=== PATIENT | male | born 1960 | race African-American/Black ===

== ENCOUNTER 2016-10-16 12:58 | Inpatient (IN) | payer OTHER ==
[~2016-10-16] VITALS: Ht 170.2 cm; Wt 81.0 kg
[~2016-10-16 12:58] MED LIST: ACET325S8 PO
[2016-10-16 13:02] VITALS: BP 173/80; PULSE 80; RESP 28; O2SAT 100
[2016-10-16 13:50] LABS: AUTOMATED NEUTROPHIL # 7.8 TH/MM3 (1.8-7.7); BASOPHIL # 0.2 TH/MM3 (0-0.2); BASOPHIL % 1.4 % (0.0-2.0); EOSINOPHIL # 0.1 TH/MM3 (0-0.4); EOSINOPHIL % 0.4 % (0.0-4.0); HEMATOCRIT 32.5 % (39.0-51.0); HEMO FLAGS DIFF FINAL; LYMPH % 26.9 % (9.0-44.0); LYMPHOCYTE # 3.3 TH/MM3 (1.0-4.8); MEAN CELL VOLUME 85.7 FL (80.0-100.0); MEAN CORPUSCULAR HEMOGLOBIN 28.8 PG (27.0-34.0); MEAN CORPUSCULAR HGB CONC 33.6 % (32.0-36.0); MONO % 8.3 % (0.0-8.0); PLATELET COUNT 553 TH/MM3 (150-450); RED CELL DISTRIBUTION WIDTH 17.4 % (11.6-17.2); WHITE BLOOD COUNT 12.4 TH/MM3 (4.0-11.0)
[2016-10-16 14:02] LABS: PROTHROMBIN TIME - PATIENT 11.3 SEC (9.8-11.6)
[2016-10-16 14:06] LABS: ANION GAP 9 MEQ/L (5-15); BICARBONATE 23.8 MEQ/L (21.0-32.0); BLOOD UREA NITROGEN 11 MG/DL (7-18); CHLORIDE 99 MEQ/L (98-107); GLOMERULAR FILTRATION RATE 153 ML/MIN (>89); POTASSIUM 4.2 MEQ/L (3.5-5.1); SODIUM (NA) 132 MEQ/L (136-145)
[2016-10-16 14:14] LABS: CREATINE KINASE 76 U/L (39-308)
--- NOTE | 2016-10-16 14:23 | RADRPT ---
EXAM DATE/TIME: 10/16/2016 13:57 [facility] COMPARISON: CT THORAX W/O CONTRAST, September 29, 2014, 16:36. CHEST SINGLE AP, January 03, 2016, 20:18. INDICATIONS : Chest pain. MEDICAL HISTORY : None. SURGICAL HISTORY : None. ENCOUNTER: Initial ACUITY: 2 days PAIN SCORE: 10/10 LOCATION: Left chest FINDINGS: The left lung base has become completely opacified. Blunting of the costophrenic angle is indicative of a pleural effusion. The right lung is clear. Heart is obscured by the left basilar density. CONCLUSION: Left basilar opacification characteristic of pleural fluid accumulation and underlying lung consolida tion or mass. Jude Lomeli MD on October 16, 2016 at 14:17 Board Certified Radiologist. This report was verified electronically.
[2016-10-16 16:20] VITALS: O2SAT 94
[2016-10-16] MEDS ORDERED: IOHEXOL 350 MG/ML 10 ML VIAL (for RAD DIAG) IV ONE (17:04)
--- NOTE | 2016-10-16 17:11 | PD ---
HPI Chief Complaint: Cardiac Complaint Time Seen by Provider: 15:36 Travel History International Travel<30 days: No Contact w/Intl Traveler<30days: No Traveled to known affect area: No History of Present Illness HPI Patient is a 56-year-old male presents emergency Department with chest and abdomen pain. Patient states his pain is Fairly severe recently. States is also been having some nausea without vomiting. Denies any weight loss. Does endorse smoking as well as drinking on a regular basis. Patient did adamantly denies any trauma to the left side of his abdomen being any car crashes recently or chills. Patient does endorse some fevers. States the pain is fairly generalized nonradiating, does endorse some mild shortness of breath. PFSH Past Medical History Asthma: Yes Blood Disorders: No Heart Rhythm Problems: No Cancer: No Cardiovascular Problems: Yes High Cholesterol: No Chest Pain: Yes Congestive Heart Failure: No COPD: No Diminished Hearing: No Endocrine: No Genitourinary: No Immune Disorder: No Musculoskeletal: No Neurologic: No Psychiatric: No Reproductive: No Respiratory: Yes Pancreatitis: Yes Sleep Apnea: No Tetanus Vaccination: > 5 Years Influenza Vaccination: No Past Surgical History Surgical History: No Previous Surgery Social History Alcohol Use: Yes (OCCASIONALLY) Tobacco Use: Yes (< 1/2 PPD) Substance Use: No Allergies-Medications (Allergen,Severity, Reaction): Coded Allergies: No Known Allergies (Verified , 10/16/16) Reported Meds & Prescriptions Reported Meds & Active Scripts Active No Active Prescriptions or Reported Medications Review of Systems Except as stated in HPI: all other systems reviewed are Neg Physical Exam Narrative GENERAL: Well-developed, well-nourished, slight pallor and appears in moderate discomfort. SKIN: Slight pallor with any wound rash or jaundice.. HEAD: Atraumatic. Normocephalic. EYES: Pupils equal and round. No scleral icterus. No injection or drainage. ENT: No nasal bleeding or discharge. Mucous membranes pink and moist. NECK: Trachea midline. No JVD. CARDIOVASCULAR: Regular rate and rhythm. No murmur appreciated. RESPIRATORY: No accessory muscle use. Clear to auscultation. Breath sounds equal bilaterally. GASTROINTESTINAL: Abdomen soft, fairly tender, firm, but not rigid., Moderate distention. Hepatic and splenic margins not palpable. No CVA tenderness no rebound or percussive tenderness. MUSCULOSKELETAL: No obvious deformities. No clubbing. No cyanosis. No edema. NEUROLOGICAL: Awake and alert. No obvious cranial nerve deficits. Motor grossly within normal limits. Normal speech. PSYCHIATRIC: Appropriate mood and affect; insight and judgment normal. Data Data Last Documented VS Vital Signs Date Time Temp Pulse Resp B/P Pulse Ox O2 Delivery O2 Flow Rate FiO2 10/16/16 17:45 88 34 119/64 96 Room Air Orders Electrocardiogram (10/16/16 ) Complete Blood Count With Diff (10/16/16 13:29) Basic Metabolic Panel (Bmp) (10/16/16 13:29) Ckmb (Isoenzyme) Profile (10/16/16 13:29) Troponin I (10/16/16 13:29) Chest, Single Ap (10/16/16 13:29) Iv Access Insert/Monitor (10/16/16 13:29) Ecg Monitoring (10/16/16 13:29) Oxygen Administration (10/16/16 13:29) Oximetry (10/16/16 13:29) Prothrombin Time / Inr (Pt) (10/16/16 13:29) Urinalysis - C+S If Indicated (10/16/16 13:40) Ct Thorax/ Chest W Iv Contrast (10/16/16 ) Iohexol 350 Inj (Omnipaque 350 Inj) (10/16/16 17:04) Morphine Inj (Morphine Inj) (10/16/16 17:15) Ondansetron Inj (Zofran Inj) (10/16/16 17:15) Ct Abd/Pel W Iv Contrast(Rout) (10/16/16 ) Hepatic Functional Panel (10/16/16 17:51) Lipase (10/16/16 17:51) Blood Culture (10/16/16 17:54) Ceftriaxone Inj (Rocephin Inj) (10/16/16 18:00) Azithromycin Inj (Zithromax Inj) (10/16/16 18:00) Admit Order (Ed Use Only) (10/16/16 ) Labs Laboratory Tests Test 10/16/16 13:40 White Blood Count 12.4 TH/MM3 Red Blood Count 3.80 MIL/MM3 Hemoglobin 10.9 GM/DL Hematocrit 32.5 % Mean Corpuscular Volume 85.7 FL Mean Corpuscular Hemoglobin 28.8 PG Mean Corpuscular Hemoglobin 33.6 % Concent Red Cell Distribution Width 17.4 % Platelet Count 553 TH/MM3 Mean Platelet Volume 7.3 FL Neutrophils (%) (Auto) 63.0 % Lymphocytes (%) (Auto) 26.9 % Monocytes (%) (Auto) 8.3 % Eosinophils (%) (Auto) 0.4 % Basophils (%) (Auto) 1.4 % Neutrophils # (Auto) 7.8 TH/MM3 Lymphocytes # (Auto) 3.3 TH/MM3 Monocytes # (Auto) 1.0 TH/MM3 Eosinophils # (Auto) 0.1 TH/MM3 Basophils # (Auto) 0.2 TH/MM3 CBC Comment DIFF FINAL Differential Comment Prothrombin Time 11.3 SEC Prothromb Time International 1.0 RATIO Ratio Sodium Level 132 MEQ/L Potassium Level 4.2 MEQ/L Chloride Level 99 MEQ/L Carbon Dioxide Level 23.8 MEQ/L Anion Gap 9 MEQ/L Blood Urea Nitrogen 11 MG/DL Creatinine 0.65 MG/DL Estimat Glomerular Filtration 153 ML/MIN Rate Random Glucose 140 MG/DL Calcium Level 9.7 MG/DL Total Bilirubin 0.4 MG/DL Direct Bilirubin 0.1 MG/DL Indirect Bilirubin 0.3 MG/DL Aspartate Amino Transf 16 U/L (AST/SGOT) Alanine Aminotransferase 16 U/L (ALT/SGPT) Alkaline Phosphatase 144 U/L Total Creatine Kinase 76 U/L Troponin I LESS THAN 0.02 NG/ML Total Protein 8.2 GM/DL Albumin 2.8 GM/DL Lipase 319 U/L MDM Medical Decision Making Medical Screen Exam Complete: Yes Emergency Medical Condition: Yes Interpretation(s) EKG shows normal sinus rhythm normal axis normal R-wave progression. Probable left atrial enlargement, no concerning ST segment changes and intervals within normal limits. This is a borderline EKG. Differential Diagnosis ACS, AMI, pneumonia, pleural effusion, metastatic disease, abdominal mass. Narrative Course Last 24 hours Impressions Chest X-Ray 10/16/16 1329 Signed Impressions: Service Date/Time: October 13:57 - CONCLUSION: Left basilar opacification characteristic of pleural fluid accumulation and underlying lung consolidation or mass. Jude Lomeli MD Chest CT 10/16/16 0000 Signed Impressions: Service Date/Time: October 16:59 - CONCLUSION: 1. Huge complex cystic mass/collection within the left upper quadrant which occupies the expected region of the spleen and is incompletely evaluated on this examination. CT of the abdomen will be performed this same day and will allow complete evaluation of this lesion. 2. Bilbasilar patchiness (left worse than right) consistent with atelectasis and/or pneumonia. Clinical correlation is recommended. 3. Small left pleural effusion. 4. Ascites within the upper abdomen. 5. Degenerative changes throughout the thoracic spine. 6. Coronary artery calcifications. Mahin Malin MD Abdomen/Pelvis CT 10/16/16 0000 Signed Impressions: Service Date/Time: October 16:59 - CONCLUSION: 1. Large complex mass/collection within the left upper quadrant measuring 18.7 x 14.9 cm. Differential includes walled-off ruptured spleen with large hematoma, complex pseudocyst from the tail of the pancreas or possible cystic neoplasm. 2. Moderate amount of ascites within the abdomen and pelvis. 3. Calcifications within the head of the pancreas suggestive of chronic calcific pancreatitis. 4. Diffuse thickening of multiple loops of jejunum suggesting jejunitis. 5. Uncomplicated colonic diverticulosis. 6. There is mild ectasia of the infrarenal abdominal aorta. Mahin Malin MD Patient roomed in the emergency department given pain, patient was inquired several times as to any traumatic event to his abdomen or chest and adamantly declines. He is adamantly denying any cocaine use. Patient was discussed with Dr. Wiggins for admission who inquires about surgical consultation and I think this is a reasonable thing to do. The patient was discussed with Dr. Farmer who will see the patient, he will make recommendations in the future regarding biopsy and recommends any biopsy be held for now. Differential diagnosis this mass is still fairly wide, pancreatic pseudocyst, pancreatic cancer, splenic hematoma is a possibility. Curious is that there are no other metastatic lesions seen that I can tell. The results were discussed with the patient and he was recommended for admission and he is agreeable. Will be placed on antibiotics secondary to atelectatic left lower lobe versus pneumonia. He has been stable in the emergency department. Diagnosis Primary Impression: Pleural effusion Additional Impressions: Abdominal mass Chest pain Admitting Information Admitting Physician Requests: Admit Scripts No Active Prescriptions or Reported Meds Condition: Stable Mahin Knight MD Oct 16, 2016 17:11
[2016-10-16] MEDS ORDERED: MORPHINE SULFATE 8 MG/ML INJ IV PUSH ONE (17:15)
[2016-10-16] MEDS ORDERED: ONDANSETRON HCL 4 MG/2 ML VIAL IV PUSH ONE (17:15)
--- NOTE | 2016-10-16 17:39 | RADRPT ---
EXAM DATE/TIME: 10/16/2016 16:59 [facility] COMPARISON: CT THORAX W/O CONTRAST, September 29, 2014, 16:36. INDICATIONS : Chest pain with SOB. IV CONTRAST: 96 cc Omnipaque 350 (iohexol) IV ; Cumulative dose for multiple exams. RADIATION DOSE: 18.01 CTDIvol (mGy) MEDICAL HISTORY : Cardiovascular disease. Pancreatitis. SURGICAL HISTORY : None. ENCOUNTER: Initial ACUITY: 1 day PAIN SCALE: 8/10 LOCATION: Chest TECHNIQUE: Volumetric scanning of the chest was performed. Using automated exposure control and adjustment of t he mA and/or kV according to patient size, radiation dose was kept as low as reasonably achievable to obtain optimal diagnostic quality images. FINDINGS: There is a huge complex cystic mass/collection within the left upper quadrant which is incompletely e valuated on this examination. This occupies the expected region of the splenic fossa and may arise f rom the spleen. This will be described in detail in the CT of the abdomen report. There is a small left pleural effusion. Bibasilar patchiness is noted (left worse than right) consistent with atelect asis and/or pneumonia. Clinical correlation is recommended. Coronary artery calcifications are noted. There is no mediastinal, hilar, or axillary lymphadenopathy. No pulmonary nodule or mass is noted. No pulmonary edema is noted. There is ascites within the upper abdomen. The bony structures are st able. Degenerative changes are noted throughout the thoracic spine. CONCLUSION: 1. Huge complex cystic mass/collection within the left upper quadrant which occupies the expected reg ion of the spleen and is incompletely evaluated on this examination. CT of the abdomen will be perfo rmed this same day and will allow complete evaluation of this lesion. 2. Bilbasilar patchiness (left worse than right) consistent with atelectasis and/or pneumonia. Clinic al correlation is recommended. 3. Small left pleural effusion. 4. Ascites within the upper abdomen. 5. Degenerative changes throughout the thoracic spine. 6. Coronary artery calcifications. Mahin Malin MD on October 16, 2016 at 17:20 Board Certified Radiologist. This report was verified electronically.
[2016-10-16 17:45] VITALS: BP 119/64; PULSE 88; RESP 34; O2SAT 96
--- NOTE | 2016-10-16 17:47 | RADRPT ---
EXAM DATE/TIME: 10/16/2016 16:59 [facility] COMPARISON: CT ABDOMEN & PELVIS W CONTRAST, October 22, 2013, 22:05. INDICATIONS : Patient complains of abdominal pain. IV CONTRAST: 96 cc Omnipaque 350 (iohexol) IV ; Cumulative dose for multiple exams. ORAL CONTRAST: No oral contrast ingested. RADIATION DOSE: 18.01 CTDIvol (mGy) ; Combined studies - Thorax/Abdomen/Pelvis MEDICAL HISTORY : Cardiovascular disease. Pancreatitis. SURGICAL HISTORY : None. ENCOUNTER: Initial ACUITY: 1 day PAIN SCALE: 8/10 LOCATION: Upper quadrant TECHNIQUE: Volumetric scanning of the abdomen and pelvis was performed. Using automated exposure control and ad justment of the mA and/or kV according to patient size, radiation dose was kept as low as reasonably achievable to obtain optimal diagnostic quality images. FINDINGS: There is evidence of a huge complex cystic mass/collection within the left upper quadrant which measu res 18.7 x 14.9 cm. This is located within the splenic fossa. No normal spleen is identified. Diff erential diagnosis includes walled-off rupture of the spleen with large hematoma or possible pseudocy st formation from the tail of the pancreas. Cystic neoplasm also remains in the differential. There is medial displacement of the stomach and inferior displacement of the left kidney related to this l arge complex lesion. Moderate amount of ascites is noted within the abdomen and pelvis. Calcificati ons are noted within the head of the pancreas consistent with chronic calcific pancreatitis. The regino er is unremarkable. The gallbladder is also unremarkable. The adrenal glands are normal bilaterally . The kidneys enhance briskly and demonstrate no evidence of focal mass or hydronephrosis. Scattere d uncomplicated colonic diverticula are noted. There is no acute diverticulitis. Degenerative change s are noted throughout the lumbar and lower thoracic spine. There is mild wall thickening involving several loops of jejunum suggesting jejunitis. Clinical correlation is recommended. CONCLUSION: 1. Large complex mass/collection within the left upper quadrant measuring 18.7 x 14.9 cm. Differentia l includes walled-off ruptured spleen with large hematoma, complex pseudocyst from the tail of the pa ncreas or possible cystic neoplasm. 2. Moderate amount of ascites within the abdomen and pelvis. 3. Calcifications within the head of the pancreas suggestive of chronic calcific pancreatitis. 4. Diffuse thickening of multiple loops of jejunum suggesting jejunitis. 5. Uncomplicated colonic diverticulosis. 6. There is mild ectasia of the infrarenal abdominal aorta. Mahin Malin MD on October 16, 2016 at 17:27 Board Certified Radiologist. This report was verified electronically.
[2016-10-16] MEDS ORDERED: cefTRIAXone INJ 1,000 MG in SODIUM CHLORIDE 0.9% INJ 100 ML IV ONE (18:00)
[2016-10-16] MEDS ORDERED: AZITHROMYCIN INJ 500 MG in SODIUM CHLOR 0.9% 250 ML INJ 250 ML IV ONE (18:00)
[2016-10-16 19:07] LABS: INDIRECT BILIRUBIN 0.3 MG/DL (0.0-0.8); TOTAL BILIRUBIN ADULT 0.4 MG/DL (0.2-1.0)
[2016-10-16 19:53] VITALS: BP 103/61; PULSE 91; RESP 18; O2SAT 96
--- NOTE | 2016-10-16 20:19 | HHI.HP ---
HPI Service [facility] Hospitalists Primary Care Physician No Primary Care Physician Admission Diagnosis Abdominal mass, PNA. Chief Complaint: Sharp chest pain, abd pain, cough Travel History International Travel<30 Days: No Contact w/Intl Traveler <30 Da: No Traveled to Known Affected Are: No History of Present Illness Patient is a 56-year-old relatively healthy male presents emergency Department with chest and abdomen pain. Patient states his pain is Fairly severe recently , but has been ongoing for 1 week. States is also been having some nausea without vomiting. Denies any weight loss. Does endorse smoking on a regular basis. He previously drank Etoh heavily, but very little in last 6 mos. Patient did adamantly denies any trauma to the left side of his abdomen, being in MVA or MCA recently. Patient does endorse some fevers over last week. States the pain is fairly generalized nonradiating, does endorse some mild shortness of breath. No hemoptysis. No melena or hematochezia. No urinary symptoms. has been eating his normal diet. No foreign travel. Review of Systems Constitutional: COMPLAINS OF: Diaphoretic episodes, Fatigue, Fever, DENIES: Weight gain, Weight loss, Chills, Dizziness, Change in appetite, Night Sweats Endocrine: DENIES: Heat/cold intolerance, Polydipsia, Polyuria, Polyphagia Eyes: DENIES: Blurred vision, Diplopia, Eye inflammation, Eye pain, Vision loss , Photosensitivity, Double Vision Ears, nose, mouth, throat: DENIES: Tinnitus, Hearing loss, Vertigo, Nasal discharge, Oral lesions, Throat pain, Hoarseness, Ear Pain, Running Nose, Epistaxis, Sinus Pain, Toothache, Odynophagia Respiratory: COMPLAINS OF: Cough, Shortness of breath, DENIES: Apneas, Snoring , Wheezing, Hemoptysis, Sputum production Cardiovascular: COMPLAINS OF: Chest pain, DENIES: Palpitations, Syncope, Dyspnea on Exertion, PND, Lower Extremity Edema, Orthopnea, Claudication Gastrointestinal: COMPLAINS OF: Abdominal pain, Nausea Musculoskeletal: COMPLAINS OF: Joint pain Hematologic/lymphatic: DENIES: Bruising, Lymphadenopathy Immunologic/allergic: DENIES: Eczema, Urticaria Neurologic: DENIES: Abnormal gait, Headache, Localized weakness, Paresthesias, Seizures, Speech Problems, Tremor, Poor Balance Psychiatric: DENIES: Anxiety, Confusion, Mood changes, Depression, Hallucinations, Agitation, Suicidal Ideation, Homicidal Ideation, Delusions, History of Bipolar, History of Schizophrenia Past Family Social History Past Medical History Previous heavy EtOH use Pancreatitis Denies HTN, hyperlipidemia, DM or other medical issues Past Surgical History None Reported Medications None regularly; occasional ASA Allergies: Coded Allergies: No Known Allergies (Verified , 10/16/16) Family History Father from DM complications Mother at 88 y.o. of "old age" 1 sister of some form of cancer in her 40s No other CA per his report Social History smokes 1/2 ppd for 38 yrs Occasional Etoh now (few drinks on w/e), but previously heavy EtoH daily Previously smoked pot and used some cocaine in his 20/30s; never used IVD [employer] with [employer] grew up locally Single, but has GF No kids Physical Exam Vital Signs Vital Signs Date Time Temp Pulse Resp B/P Pulse Ox O2 Delivery O2 Flow Rate FiO2 10/16/16 19:53 91 18 103/61 96 Room Air 10/16/16 17:45 88 34 119/64 96 Room Air 10/16/16 16:20 94 Room Air 10/16/16 16:19 Room Air 10/16/16 13:02 80 28 173/80 100 Room Air Physical Exam GENERAL: This is a well-nourished, well-developed patient, in no apparent distress. a/o. SKIN: No rashes, ecchymoses or lesions. Cool and dry. HEAD: Atraumatic. Normocephalic. No temporal or scalp tenderness. EYES: Pupils equal round and reactive. Extraocular motions intact. No scleral icterus. No injection or drainage. ENT: Nose without bleeding, purulent drainage or septal hematoma. Airway patent. NECK: Trachea midline. No JVD or lymphadenopathy. Supple, nontender, no meningeal signs. CARDIOVASCULAR: Regular rate and rhythm without murmurs, gallops, or rubs. RESPIRATORY: Clear to auscultation. breath sounds diminished at bases. No wheezes, rales, or rhonchi. GASTROINTESTINAL: Abdomen soft, moderately distended with global ttp, no rebound , +voluntary guarding. MUSCULOSKELETAL: Extremities without clubbing, cyanosis, or edema. No joint tenderness, effusion, or edema noted. No calf tenderness. NEUROLOGICAL: Awake and alert. Cranial nerves II through XII intact. Motor and sensory grossly within normal limits. Five out of 5 muscle strength in all muscle groups. Normal speech. Laboratory Laboratory Tests Test 10/16/16 13:40 White Blood Count 12.4 Red Blood Count 3.80 Hemoglobin 10.9 Hematocrit 32.5 Mean Corpuscular Volume 85.7 Mean Corpuscular Hemoglobin 28.8 Mean Corpuscular Hemoglobin 33.6 Concent Red Cell Distribution Width 17.4 Platelet Count 553 Mean Platelet Volume 7.3 Neutrophils (%) (Auto) 63.0 Lymphocytes (%) (Auto) 26.9 Monocytes (%) (Auto) 8.3 Eosinophils (%) (Auto) 0.4 Basophils (%) (Auto) 1.4 Neutrophils # (Auto) 7.8 Lymphocytes # (Auto) 3.3 Monocytes # (Auto) 1.0 Eosinophils # (Auto) 0.1 Basophils # (Auto) 0.2 CBC Comment DIFF FINAL Differential Comment Prothrombin Time 11.3 Prothromb Time International 1.0 Ratio Sodium Level 132 Potassium Level 4.2 Chloride Level 99 Carbon Dioxide Level 23.8 Anion Gap 9 Blood Urea Nitrogen 11 Creatinine 0.65 Estimat Glomerular Filtration 153 Rate Random Glucose 140 Calcium Level 9.7 Total Bilirubin 0.4 Direct Bilirubin 0.1 Indirect Bilirubin 0.3 Aspartate Amino Transf 16 (AST/SGOT) Alanine Aminotransferase 16 (ALT/SGPT) Alkaline Phosphatase 144 Total Creatine Kinase 76 Troponin I LESS THAN 0.02 Total Protein 8.2 Albumin 2.8 Lipase 319 Date/Time Procedure Status Source Growth 10/16/16 19:00 Aerobic Blood Culture Received Blood Peripheral Pending 10/16/16 19:00 Anaerobic Blood Culture Received Blood Peripheral Pending Result Diagram: 10/16/16 1340 10/16/16 1340 Imaging Last 72 hours Impressions Chest X-Ray 10/16/16 1329 Signed Impressions: Service Date/Time: October 13:57 - CONCLUSION: Left basilar opacification characteristic of pleural fluid accumulation and underlying lung consolidation or mass. Jude Lomeli MD Chest CT 10/16/16 0000 Signed Impressions: Service Date/Time: October 16:59 - CONCLUSION: 1. Huge complex cystic mass/collection within the left upper quadrant which occupies the expected region of the spleen and is incompletely evaluated on this examination. CT of the abdomen will be performed this same day and will allow complete evaluation of this lesion. 2. Bilbasilar patchiness (left worse than right) consistent with atelectasis and/or pneumonia. Clinical correlation is recommended. 3. Small left pleural effusion. 4. Ascites within the upper abdomen. 5. Degenerative changes throughout the thoracic spine. 6. Coronary artery calcifications. Mahin Malin MD Abdomen/Pelvis CT 10/16/16 0000 Signed Impressions: Service Date/Time: October 16:59 - CONCLUSION: 1. Large complex mass/collection within the left upper quadrant measuring 18.7 x 14.9 cm. Differential includes walled-off ruptured spleen with large hematoma, complex pseudocyst from the tail of the pancreas or possible cystic neoplasm. 2. Moderate amount of ascites within the abdomen and pelvis. 3. Calcifications within the head of the pancreas suggestive of chronic calcific pancreatitis. 4. Diffuse thickening of multiple loops of jejunum suggesting jejunitis. 5. Uncomplicated colonic diverticulosis. 6. There is mild ectasia of the infrarenal abdominal aorta. Mahin Malin MD Assessment and Plan Problem List: (1) Splenic cyst Status: Acute Plan: ? cyst vs abscess vs pancreatic pseudocyst Gen surgery will see pt. I spoke with Dr Jerome who will review images will provide abx, ivf, pain meds. (2) Jejunitis Status: Acute Plan: give iv abx.? secondary to surrounding mass (3) Pleural effusion Status: Acute Plan: doubt significant pneumonia. Likely a/w inflammatory changes in proximity to diaphragm. Will monitor. provide supplemental oxygen, nebs. Code Status full Discussed Condition With Pt, ER and Dr Lucas Jerome Physician Certification 2 Midnight Certification Type: Admission for Inpatient Services Order for Inpatient Services The services are ordered in accordance with Medicare regulations or non- Medicare payer requirements, as applicable. In the case of services not specified as inpatient-only, they are appropriately provided as inpatient services in accordance with the 2-midnight benchmark. Estimated LOS (days): 3 days is the estimated time the patient will need to remain in the hospital, assuming treatment plan goals are met and no additional complications. Post-Hospital Plan: Not yet determined Gabe Wiggins MD PhD Oct 16, 2016 20:18
[2016-10-16] MEDS ORDERED: methylPREDNISolone SOD SUCC 40 MG/1 ML VIAL IV PUSH ONE (20:30)
[2016-10-16] MEDS ORDERED: ONDANSETRON HCL 4 MG/2 ML VIAL IV PUSH PRN (20:30)
[2016-10-16] MEDS: SODIUM CHLOR 0.9% 1000 ML INJ 1,000 ML IV SCH (20:50)
[2016-10-16] MEDS: metroNIDAZOLE 500 MG INJ 100 ML IV SCH (20:50)
[2016-10-16 21:02] VITALS: O2SAT 96
[2016-10-16 21:30] LABS: AUTOMATED NEUTROPHIL # 5.8 TH/MM3 (1.8-7.7); BASOPHIL % 0.4 % (0.0-2.0); HEMATOCRIT 35.9 % (39.0-51.0); HEMO FLAGS DIFF FINAL; LYMPH % 13.7 % (9.0-44.0); MEAN CELL VOLUME 86.1 FL (80.0-100.0); MEAN CORPUSCULAR HEMOGLOBIN 29.5 PG (27.0-34.0); MEAN CORPUSCULAR HGB CONC 34.3 % (32.0-36.0); MONO % 7.7 % (0.0-8.0); NEUT % 78.2 % (16.0-70.0); PLATELET COUNT 585 TH/MM3 (150-450); RED BLOOD COUNT 4.16 MIL/MM3 (4.50-5.90); RED CELL DISTRIBUTION WIDTH 17.1 % (11.6-17.2); WHITE BLOOD COUNT 7.4 TH/MM3 (4.0-11.0)
[2016-10-16] MEDS: MORPHINE SULFATE 4 MG/ML INJ IV PUSH PRN (21:59)
[2016-10-16] MEDS: PIPERACIL-TAZO 3.375 GM PREMIX 50 ML IV SCH (22:05)
[2016-10-16] MEDS ORDERED: diphenhydrAMINE HCL 50 MG/ML VIAL IV PUSH ONE (22:30)
[2016-10-16] MEDS ORDERED: methylPREDNISolone SOD SUCC 125 MG/2 ML VIAL IV PUSH ONE (22:30)
[2016-10-17] VITALS (14 sets, daily range): BP systolic 106–129; BP diastolic 71–77; PULSE 80–102; RESP 16–24; TEMP 97.7–98.1; O2SAT 92–97
[2016-10-17] MEDS: MORPHINE SULFATE 4 MG/ML INJ IV PUSH PRN ×5 (01:29→20:48)
[2016-10-17] MEDS: PIPERACIL-TAZO 3.375 GM PREMIX 50 ML IV SCH ×4 (03:00→20:48)
[2016-10-17] MEDS: metroNIDAZOLE 500 MG INJ 100 ML IV SCH (04:53)
[2016-10-17 06:08] LABS: AUTOMATED NEUTROPHIL # 8.3 TH/MM3 (1.8-7.7); BASOPHIL % 0.3 % (0.0-2.0); HEMATOCRIT 36.5 % (39.0-51.0); HEMO FLAGS DIFF FINAL; LYMPH % 15.5 % (9.0-44.0); LYMPHOCYTE # 1.7 TH/MM3 (1.0-4.8); MEAN CELL VOLUME 87.2 FL (80.0-100.0); MEAN CORPUSCULAR HEMOGLOBIN 27.4 PG (27.0-34.0); MEAN CORPUSCULAR HGB CONC 31.4 % (32.0-36.0); MONO % 8.6 % (0.0-8.0); NEUT % 75.6 % (16.0-70.0); PLATELET COUNT 561 TH/MM3 (150-450); RED BLOOD COUNT 4.18 MIL/MM3 (4.50-5.90)
[2016-10-17 06:15] LABS: APTT (PATIENT) 30.5 SEC (24.3-30.1)
[2016-10-17 06:38] LABS: ALT (GPT) 14 U/L (12-78); ANION GAP 10 MEQ/L (5-15); AST (GOT) 22 U/L (15-37); BICARBONATE 25.2 MEQ/L (21.0-32.0); BLOOD UREA NITROGEN 23 MG/DL (7-18); CHLORIDE 100 MEQ/L (98-107); GLOMERULAR FILTRATION RATE 82 ML/MIN (>89); POTASSIUM 4.9 MEQ/L (3.5-5.1); SODIUM (NA) 135 MEQ/L (136-145)
[2016-10-17 06:47] LABS: ALKALINE PHOSPHATASE 118 U/L (45-117); TOTAL BILIRUBIN ADULT 0.7 MG/DL (0.2-1.0)
[2016-10-17 07:14] LABS: BACTERIA, URINE OCC /hpf; BLOOD, URINE MOD (NEG); COMMENT (UR) CULTURE INDICATED; CULTURE IF INDICATED CULTURE INDICATED; GLUCOSE,URINE NEG (NEG); KETONE, URINE TRACE mg/dL (NEG); MUCUS URINE FEW /lpf (OCC); NITRITE,URINE NEG (NEG); PH, URINE 5.5 (5.0-8.5); SQUAMOUS EPITHELIAL CELL URINE <1 /hpf (0-5); TRANSITIONAL EPI CELLS, URINE 1 /hpf; URINE COLOR YELLOW (YELLW/STRAW)
[2016-10-17] MEDS: SODIUM CHLOR 0.9% 1000 ML INJ 1,000 ML IV SCH (08:41)
[2016-10-17] MEDS ORDERED: PNEUMOCOCCAL POLYVALENT INJ 25 MCG/0.5 ML SYR IM ONE (09:00)
[2016-10-17] MEDS ORDERED: INFLUENZA VIRUS VACCINE (QUADRIVALENT) 0.5 ML SYR IM ONE (09:00)
--- NOTE | 2016-10-17 09:25 | HHI.PR ---
Subjective Remarks pt still with left side abdomen pain and fullness. Says it started within last 2 weeks. had urine retention requiring alston Objective Vitals oriented nad heart reg lung course bs bases abd diffusely tender more on left side. no rebound. bs distention noted ext no edema alston Vital Signs Date Time Temp Pulse Resp B/P Pulse Ox O2 Delivery O2 Flow Rate FiO2 10/17/16 08:40 93 Nasal Cannula 3.00 10/17/16 04:00 80 10/17/16 02:00 84 10/17/16 00:00 96 Nasal Cannula 3.00 10/16/16 21:02 96 10/16/16 19:53 91 18 103/61 96 Room Air 10/16/16 17:45 88 34 119/64 96 Room Air 10/16/16 16:20 94 Room Air 10/16/16 16:19 Room Air 10/16/16 13:02 80 28 173/80 100 Room Air 10/16/16 10/16/16 10/17/16 15:00 23:00 07:00 Intake Total 974 ml Output Total 275 ml Balance 699 ml Intake Oral 120 ml IV Total 854 ml Output Urine Total 275 ml # Bowel Movements 0 Result Diagram: 10/17/16 0555 10/17/16 0555 Imaging Last 72 hours Impressions Chest X-Ray 10/16/16 1329 Signed Impressions: Service Date/Time: October 13:57 - CONCLUSION: Left basilar opacification characteristic of pleural fluid accumulation and underlying lung consolidation or mass. Jude Lomeli MD Chest CT 10/16/16 0000 Signed Impressions: Service Date/Time: October 16:59 - CONCLUSION: 1. Huge complex cystic mass/collection within the left upper quadrant which occupies the expected region of the spleen and is incompletely evaluated on this examination. CT of the abdomen will be performed this same day and will allow complete evaluation of this lesion. 2. Bilbasilar patchiness (left worse than right) consistent with atelectasis and/or pneumonia. Clinical correlation is recommended. 3. Small left pleural effusion. 4. Ascites within the upper abdomen. 5. Degenerative changes throughout the thoracic spine. 6. Coronary artery calcifications. Mahin Malin MD Abdomen/Pelvis CT 10/16/16 0000 Signed Impressions: Service Date/Time: October 16:59 - CONCLUSION: 1. Large complex mass/collection within the left upper quadrant measuring 18.7 x 14.9 cm. Differential includes walled-off ruptured spleen with large hematoma, complex pseudocyst from the tail of the pancreas or possible cystic neoplasm. 2. Moderate amount of ascites within the abdomen and pelvis. 3. Calcifications within the head of the pancreas suggestive of chronic calcific pancreatitis. 4. Diffuse thickening of multiple loops of jejunum suggesting jejunitis. 5. Uncomplicated colonic diverticulosis. 6. There is mild ectasia of the infrarenal abdominal aorta. Mahin Malin MD A/P Problem List: (1) Mass of abdomen Status: Acute Plan: Pt is 56 yo with pmh of etoh abuse/pancreatitis presents now with left abdomen pain/fullness Found to have Left abdomen cystic mass but unclear if it's ruptured splenic fluid collection vs large pancreatic pseudocyst vs malignant Has c/o some fevers. He has thony. basilar atelectasis on CT and potentially small area of pna on the left base with associated effusion. gen surg has been consulted to assist in dx and management of the abdomen fluid collection. I spoke to Dr Jerome and nothing surgical to do..but he spoke to IR and malignancy is high concern...they discussed omental bx and paracentesis. I will cancel surgical consult and place IR consult. He was started emperically on abx last night. alston placed for urine retention he is on clear liquid and ivf dvt prophylaxis. (2) Jejunitis Status: Acute Plan: see above Hugo Howard MD Oct 17, 2016 09:25
[2016-10-17] MEDS ORDERED: MIDAZOLAM HCL 5 MG/5 ML VIAL ONE (13:26)
[2016-10-17] MEDS ORDERED: fentaNYL CITRATE 250 MCG/5 ML AMP ONE (13:26)
[2016-10-17] MEDS ORDERED: LIDOCAINE HCL 1% 20 ML VIAL ONE (13:29)
[2016-10-17 13:39] LABS: INTERNATIONAL NORMALIZED RATIO 1.1 RATIO; PROTHROMBIN TIME - PATIENT 12.1 SEC (9.8-11.6)
--- NOTE | 2016-10-17 16:20 | RADRPT ---
EXAM DATE/TIME: 10/17/2016 14:05 [facility] COMPARISON: No previous studies available for comparison. INDICATIONS : Ascites. SEDATION TIME: 40 minutes MEDICATION(S): 1.) 2 mg midazolam (Versed) IV 2.) 100 mcg fentanyl (Sublimaze) IV DEVICE(S): 1.) 18 gauge Orr blunt needle FLUID: Total volume of 200 cc of cloudy, red fluid was removed. Fluid was sent for laboratory ordered studies. MEDICAL HISTORY : Pancreatitis. SURGICAL HISTORY : None. ENCOUNTER: Initial ACUITY: 1 day PAIN SCORE: 0/10 LOCATION: abdomen. PROCEDURE: 1.) Conscious sedation with continuous EKG and oximetry monitoring. 2.) EKG and oximetry remained stable throughout the procedure. PROCEDURE : 1. CT-guidance for abdominal paracentesis. 2. Paracentesis. The risks, benefits and alternatives to CT-guided paracentesis were explained to the patient in detai l, lay terms including the risk of bleeding and infection. Oral and written informed consent was obt ained. Using automated exposure control and adjustment of the mA and/or kV according to patient size, radiation dose was kept as low as reasonably achievable to obtain optimal diagnostic quality images. Initial attempt was made to biopsy presumed peritoneal metastasis. This material turned out to be he morrhagic ascites. 18 gauge blunt needle was placed into the peritoneum and 200 cc of hemorrhagic as cites were removed and sent for cytology and culture. Post procedure scanning reveals no evidence of hematoma or other complication. The patient tolerated the procedure well and left the CT suite in good condition. CONCLUSION: Uncomplicated CT Guided paracentesis revealing hemorrhagic ascites. Fernando Jones MD FACR on October 17, 2016 at 16:16 Board Certified Radiologist. This report was verified electronically.
--- NOTE | 2016-10-17 16:28 | RADRPT ---
EXAM DATE/TIME: 10/17/2016 11:32 [facility] COMPARISON: No previous studies available for comparison. INDICATIONS : Abdominal mass. SEDATION TIME: 40 minutes BIOPSY SITE: Abdomen. MEDICATION(S): 1.) 2 mg midazolam (Versed) IV 2.) 100 mcg fentanyl (Sublimaze) IV DEVICE(S): 1.) 18 gauge Orr blunt needle 2.) 20 gauge BioPince MEDICAL HISTORY : Pancreatitis. SURGICAL HISTORY : None. ENCOUNTER: Initial ACUITY: 1 day PAIN SCORE: 0/10 LOCATION: abdomen. A total of one core specimen(s) were obtained and sent to the laboratory for pathologic evaluation. PROCEDURE: 1. CT guided abdomen biopsy. 2. Conscious sedation with continuous EKG and oximetry monitoring. 3. EKG and oximetry remained stable throughout the procedure. Prior to the procedure informed consent was obtained. Any appropriate prior imaging studies were rev iewed. Using automated exposure control and adjustment of the mA and/or kV according to patient size, radiat ion dose was kept as low as reasonably achievable to obtain optimal diagnostic quality images. The site was prepped in a sterile fashion. Full sterile technique was used, including cap, mask, poli rile gloves and gown and a large sterile sheet. Hand hygiene and 2% chlorhexidine and/or betadine/al cohol prep was utilized per protocol for cutaneous antisepsis. The skin and subcutaneous tissues wer e infiltrated with local anesthetic solution. Under CT guidance an 18 gauge biopsy and was placed into the peritoneum to biopsy but looked like per itoneum metastasis. The sample material was like old blood. This was sent for pathologic evaluation . Attention was then turned to performing the paracentesis to remove as much of this is possible. Follow-up CT scan reveals no hemorrhage. The patient tolerated the procedure well and there were no complications. The patient was returned to the Radiology Outpatient Unit in stable condition. CONCLUSION: Uncomplicated CT guided biopsy possible peritoneal metastasis. Fernando Jones MD FACR on October 17, 2016 at 16:25 Board Certified Radiologist. This report was verified electronically.
[2016-10-17 20:34] LABS: PERITONEAL WBC 2759 /MM3 (0-10)
[2016-10-17 20:35] LABS: PERITONEAL LYMPHS 9 %; PERITONEAL POLYS(SEGS) 91 %
--- NOTE | 2016-10-17 22:52 | EKG ---
Date Performed: 10/16/2016 Time Performed: 13:30:46 PTAGE: 56 years EKG: Sinus rhythm POSSIBLE LEFT ATRIAL ENLARGEMENT BORDERLINE ECG NO PREVIOUS TRACING DOCTOR: Jessica Marinelli Interpretating Date/Time 10/17/2016 22:49:28
[2016-10-18] VITALS (14 sets, daily range): BP systolic 121–151; BP diastolic 67–89; PULSE 92–106; RESP 26–32; TEMP 97.7–98.2; O2SAT 91–95
[2016-10-18] MEDS: PIPERACIL-TAZO 3.375 GM PREMIX 50 ML IV SCH ×5 (03:23→19:57)
[2016-10-18] MEDS: MORPHINE SULFATE 4 MG/ML INJ IV PUSH PRN ×4 (04:17→21:48)
[2016-10-18 10:32] LABS: AUTOMATED NEUTROPHIL # 16.6 TH/MM3 (1.8-7.7); BASOPHIL % 0.2 % (0.0-2.0); HEMATOCRIT 34.3 % (39.0-51.0); HEMO FLAGS DIFF FINAL; LYMPH % 6.5 % (9.0-44.0); LYMPHOCYTE # 1.2 TH/MM3 (1.0-4.8); MEAN CORPUSCULAR HGB CONC 31.4 % (32.0-36.0); MONO % 5.7 % (0.0-8.0); NEUT % 87.6 % (16.0-70.0); PLATELET COUNT 527 TH/MM3 (150-450); RED BLOOD COUNT 3.99 MIL/MM3 (4.50-5.90); RED CELL DISTRIBUTION WIDTH 17.1 % (11.6-17.2)
[2016-10-18 10:50] LABS: BICARBONATE 25.7 MEQ/L (21.0-32.0); POTASSIUM 4.2 MEQ/L (3.5-5.1)
[2016-10-18 10:53] LABS: INDIRECT BILIRUBIN 0.4 MG/DL (0.0-0.8); TOTAL BILIRUBIN ADULT 0.8 MG/DL (0.2-1.0)
--- NOTE | 2016-10-18 10:56 | HHI.PR ---
Subjective Remarks pt more sob/tachypneic. no bm abdomen distended Objective Vitals tachypneic heart reg lung course bs base abd distended. diminished bs ext no edema alston Vital Signs Date Time Temp Pulse Resp B/P Pulse Ox O2 Delivery O2 Flow Rate FiO2 10/18/16 10:00 95 10/18/16 08:08 93 Nasal Cannula 3.00 10/18/16 08:00 93 10/18/16 08:00 98.0 92 29 124/67 91 10/18/16 07:00 94 Simple Mask 8.00 10/18/16 06:00 95 10/18/16 04:00 98.0 96 26 122/73 92 10/18/16 04:00 96 10/18/16 02:00 94 10/18/16 00:00 97 10/18/16 00:00 98.0 98 27 121/68 94 10/17/16 22:00 102 10/17/16 20:56 92 Nasal Cannula 3.00 10/17/16 20:00 97.7 98 24 129/75 93 10/17/16 20:00 100 10/17/16 19:00 Nasal Cannula 3.00 10/17/16 18:00 98 10/17/16 16:30 95 110/71 10/17/16 16:11 20 10/17/16 16:00 90 10/17/16 16:00 98.1 90 16 106/77 94 10/17/16 16:00 100 106/77 10/17/16 15:30 99 106/71 10/17/16 15:00 90 126/77 10/17/16 12:00 97.8 86 20 113/75 97 10/17/16 12:00 86 10/17/16 10/17/16 10/18/16 15:00 23:00 07:00 Intake Total 909 ml 1365 ml 1175 ml Output Total 325 ml 550 ml 300 ml Balance 584 ml 815 ml 875 ml Intake Oral 200 ml 709 ml 560 ml IV Total 709 ml 656 ml 615 ml Output Urine Total 325 ml 350 ml 300 ml Drainage Total 200 ml # Bowel Movements 0 0 0 Result Diagram: 10/18/16 1015 10/17/16 0555 Imaging Last 72 hours Impressions Chest X-Ray 10/16/16 1329 Signed Impressions: Service Date/Time: October 13:57 - CONCLUSION: Left basilar opacification characteristic of pleural fluid accumulation and underlying lung consolidation or mass. Jude Lomeli MD Chest CT 10/16/16 0000 Signed Impressions: Service Date/Time: October 16:59 - CONCLUSION: 1. Huge complex cystic mass/collection within the left upper quadrant which occupies the expected region of the spleen and is incompletely evaluated on this examination. CT of the abdomen will be performed this same day and will allow complete evaluation of this lesion. 2. Bilbasilar patchiness (left worse than right) consistent with atelectasis and/or pneumonia. Clinical correlation is recommended. 3. Small left pleural effusion. 4. Ascites within the upper abdomen. 5. Degenerative changes throughout the thoracic spine. 6. Coronary artery calcifications. Mahin Malin MD Abdomen/Pelvis CT 10/16/16 0000 Signed Impressions: Service Date/Time: October 16:59 - CONCLUSION: 1. Large complex mass/collection within the left upper quadrant measuring 18.7 x 14.9 cm. Differential includes walled-off ruptured spleen with large hematoma, complex pseudocyst from the tail of the pancreas or possible cystic neoplasm. 2. Moderate amount of ascites within the abdomen and pelvis. 3. Calcifications within the head of the pancreas suggestive of chronic calcific pancreatitis. 4. Diffuse thickening of multiple loops of jejunum suggesting jejunitis. 5. Uncomplicated colonic diverticulosis. 6. There is mild ectasia of the infrarenal abdominal aorta. 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 He has some tachypnea most like from upward compression from abdomen process. He has thony. basilar atelectasis on CT and potentially small area of pna on the left base with associated effusion. discussed his potential for respiratory decline with [employer] who reviewed his case and will monitor him...They wanted me to discuss again with gen surg if anything can be done to drain the fluid before he develops further respiratory decline. discussed with Dr Jerome and scope with drain is contemplated but high risk for major lap surgery. CTA abdomen is recommended and ordered. f/u pending labs look for ileus pattern also on ct today. might need ngt. will cont abx and liquid diet for now. alston for urine retention. laxative. dvt prophylaxis. (2) Jejunitis Status: Acute Plan: see above Hugo Howard MD Oct 18, 2016 10:56
[2016-10-18] MEDS ORDERED: IOHEXOL 350 MG/ML 10 ML VIAL (for RAD DIAG) IV ONE (11:33)
[2016-10-18] MEDS: LACTULOSE SYRUP 20 GM/30 ML CUP PO SCH ×2 (11:41→19:49)
[2016-10-18] MEDS: ONDANSETRON HCL 4 MG/2 ML VIAL IV PUSH PRN ×2 (11:42→19:49)
--- NOTE | 2016-10-18 13:04 | RADRPT ---
EXAM DATE/TIME: 10/18/2016 11:19 [facility] COMPARISON: CT NEEDLE BIOPSY ABDOMEN, October 17, 2016, 11:32. INDICATIONS : Pancreatic psuedocyst. IV CONTRAST: 75 cc Omnipaque 350 (iohexol) IV ORAL CONTRAST: No oral contrast ingested. RADIATION DOSE: 11.13 CTDIvol (mGy) MEDICAL HISTORY : Pancreatitis. SURGICAL HISTORY : None. ENCOUNTER: Initial ACUITY: 1 day PAIN SCALE: 5/10 LOCATION: Bilateral upper quadrant TECHNIQUE: Volumetric scanning was performed using a multi-row detector CT scanner. The data was post processed with a variety of visualization algorithms including full volume maximum intensity projection, multi -planar sliding thin slab reformation, curved planar reformation, and surface rendering techniques. Using automated exposure control and adjustment of the mA and/or kV according to patient size, radiat ion dose was kept as low as reasonably achievable to obtain optimal diagnostic quality images. ANGIOGRAPHIC FINDINGS: Abdominal aorta is normal in caliber with scattered atherosclerotic calcifications. No aortic aneurys m. Celiac, SMA, and AMOS are patent. There are single bilateral renal arteries which are patent. Scatt ered calcified atherosclerotic calcifications involving the iliac arteries bilaterally. Resultant mil d stenosis in the left mid external iliac artery and mild stenosis in the right mid external iliac ar uma. Visualized femoral arteries are patent. GENERAL FINDINGS: Redemonstration of a very large complex cystic mass in the left upper quadrant measuring approximatel y 16.8 x 13.3 x 18.9 cm. The there is heterogeneous enhancing tissue along the medial and caudal aspe cts of this mass. The splenic artery is seen coursing into this mass. This mass like reflects an infa rcted spleen. The mass does extend to the tail of the pancreas and pancreatic calcifications are cons istent with prior pancreatitis. As such, a pancreatic pseudocyst with involvement of spleen and subse quent splenic infarction is in the differential diagnosis. Cystic pancreatic neoplasm is also the dif ferential diagnosis although there are no secondary features such as tail atrophy or ductal dilatatio n. Pancreas demonstrates diffusely homogeneous enhancement. There are 2 additional intermediate densi ty heterogeneously hypodense collections anterior to the dominant left upper quadrant mass measuring 5.7 x 10.0 cm and 4.1 x 5.1 cm. These may reflect evolving hematomas or pancreatic pseudocysts. There is redemonstration of small amount of ascites with fluid primarily in the deep pelvis and perihepati c region. This fluid measures fairly simple density. There is a reactive left-sided pleural effusion with redemonstration bibasilar dense air space consolidation which may reflect atelectasis or aspirat ion. Additional pertinent findings include questionably enhancing anterior peritoneal tissue which wa s recently biopsied with nondiagnostic pathology. There is no evidence of active hemorrhage at this t corrina. The there is diffuse prominence of the small bowel although more prominently in the jejunum with out a definitive focal transition point although very distal ileal loops are normal in caliber. Air a nd stool is seen throughout the colon. There is no pneumatosis or free air. The remainder of the exam is unchanged. CONCLUSION: 1. No evidence for active hemorrhage at this time. No significant aortic aneurysm or flow-limiting st enosis. 2. Redemonstration of large left upper quadrant complex cystic mass and evidence of prior pancreatiti s. 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 Two additional focal collections anter ior to this cystic mass likely reflect developing pseudocysts versus evolving blood products. Anterio r peritoneal enhancing soft tissue has the appearance of peritoneal carcinomatosis although recent bi opsy is nondiagnostic. Evolving hemorrhage is in the differential diagnosis. 3. Small to moderate ascites. 4. Mild diffuse small bowel prominence without a definite transition point although distal ileal loop s are normal in caliber. Findings are most consistent with adynamic ileus although early partial obst ruction may appear similar. 5. Reactive small left pleural effusion with bilateral lower lobe airspace consolidation which likely reflects atelectasis versus less likely aspiration. Mario Cha MD on October 18, 2016 at 12:11 Board Certified Radiologist. This report was verified electronically.
[2016-10-18] MEDS ORDERED: fentaNYL CITRATE 250 MCG/5 ML AMP ONE (15:23)
[2016-10-18] MEDS ORDERED: LIDOCAINE HCL 1% 20 ML VIAL ONE (15:30)
[2016-10-19] VITALS (16 sets, daily range): BP systolic 107–149; BP diastolic 55–80; PULSE 83–108; RESP 17–29; TEMP 97.9–98.8; O2SAT 89–100
[2016-10-19] MEDS: ONDANSETRON HCL 4 MG/2 ML VIAL IV PUSH PRN ×2 (00:38→19:49)
[2016-10-19] MEDS: RESP: ALBUTEROL 2.5 MG/IPRATROPIUM 0.5 MG NEB (PRN) NEB ×2 (01:06→22:21)
[2016-10-19] MEDS: PIPERACIL-TAZO 3.375 GM PREMIX 50 ML IV SCH (02:04)
[2016-10-19 03:56] LABS: AUTOMATED NEUTROPHIL # 15.9 TH/MM3 (1.8-7.7); BASOPHIL % 0.2 % (0.0-2.0); EOSINOPHIL % 0.1 % (0.0-4.0); HEMATOCRIT 34.5 % (39.0-51.0); HEMO FLAGS DIFF FINAL; LYMPH % 3.5 % (9.0-44.0); LYMPHOCYTE # 0.6 TH/MM3 (1.0-4.8); MEAN CELL VOLUME 85.6 FL (80.0-100.0); MEAN CORPUSCULAR HEMOGLOBIN 27.8 PG (27.0-34.0); MEAN CORPUSCULAR HGB CONC 32.4 % (32.0-36.0); MONO % 6.6 % (0.0-8.0); NEUT % 89.6 % (16.0-70.0); PLATELET COUNT 554 TH/MM3 (150-450); RED BLOOD COUNT 4.03 MIL/MM3 (4.50-5.90); RED CELL DISTRIBUTION WIDTH 17.5 % (11.6-17.2); WHITE BLOOD COUNT 17.7 TH/MM3 (4.0-11.0)
[2016-10-19 04:16] LABS: BICARBONATE 25.8 MEQ/L (21.0-32.0); POTASSIUM 3.8 MEQ/L (3.5-5.1)
--- NOTE | 2016-10-19 05:05 | PD.CONS ---
HPI Service Critical Care Medicine Consult Requested By Primary Care Physician No Primary Care Physician History of Present Illness 56-year-old male without significant past medical history admitted with chest and abdomen pain. His pain is Fairly severe recently, but has been ongoing for 1 week. States is also been having some nausea without vomiting. Denies any weight loss. He is an active tobacco smoker. He previously drank Etoh heavily, but very little in last 6 mos. He denies any trauma to the left side of his abdomen, being in MVA or MCA recently. He admits some fevers over the last week. He was found to have left abdominal cystic mass however unclear if it's ruptured splenic fluid collection vs large pancreatic pseudocyst vs malignant. He also has bilateral basilar atelectasis on CT and potentially a small area of pneumonia on the left base with associated effusion. Per radiology and general surgery discussion a malignancy is high concern. The interventional radiology is considering omental biopsy and paracentesis. Review of Systems Constitutional: COMPLAINS OF: Fatigue, Fever, Change in appetite, DENIES: Diaphoretic episodes, Weight gain, Weight loss, Chills, Dizziness, Night Sweats Endocrine: DENIES: Heat/cold intolerance, Polydipsia, Polyuria, Polyphagia Eyes: DENIES: Blurred vision, Diplopia, Eye inflammation, Eye pain, Vision loss , Photosensitivity, Double Vision Respiratory: DENIES: Apneas, Cough, Snoring, Wheezing, Hemoptysis, Sputum production, Shortness of breath Cardiovascular: COMPLAINS OF: Chest pain, DENIES: Palpitations, Syncope, Dyspnea on Exertion, PND, Lower Extremity Edema, Orthopnea, Claudication Gastrointestinal: COMPLAINS OF: Abdominal pain, DENIES: Black stools, Bloody stools, Constipation, Diarrhea, Nausea, Vomiting, Difficulty Swallowing, Anorexia Genitourinary: DENIES: Sexual dysfunction, Urinary frequency, Urinary incontinence, Urgency, Hematuria, Dysuria, Nocturia, Penile Discharge, Testicular Pain, Testicular Swelling Musculoskeletal: DENIES: Joint pain, Muscle aches, Stiffness, Joint Swelling, Back pain, Neck pain Integumentary: DENIES: Abnormal pigmentation, Nail changes, Pruritus, Rash Hematologic/lymphatic: DENIES: Bruising, Lymphadenopathy Immunologic/allergic: DENIES: Eczema, Urticaria Neurologic: DENIES: Abnormal gait, Headache, Localized weakness, Paresthesias, Seizures, Speech Problems, Tremor, Poor Balance Psychiatric: DENIES: Anxiety, Confusion, Mood changes, Depression, Hallucinations, Agitation, Suicidal Ideation, Homicidal Ideation, Delusions Past Family Social History Allergies: Coded Allergies: No Known Allergies (Verified , 10/16/16) Past Medical History Previous heavy EtOH use Pancreatitis Denies HTN, hyperlipidemia, DM or other medical issues Past Surgical History None Reported Medications Reported Meds & Active Scripts Active No Active Prescriptions or Reported Medications Active Ordered Medications Current Medications Medications (Trade) Dose Ordered Sig/Jose Route PRN Reason Start Time Stop Time Status Last Admin Dose Admin Piperacillin Sod/ Tazobactam Sod (Zosyn 3.375 Gm Premix) 50 ml @ 100 mls/hr Q6H IV 10/16/16 21:00 10/19/16 02:04 Morphine Sulfate (Morphine Inj) 2 mg Q3H PRN IV PUSH pain level 3-10 10/16/16 20:30 10/18/16 21:48 Lactulose (Lactulose Liq) 30 ml BID PO 10/18/16 11:00 10/18/16 19:49 Ondansetron HCl (Zofran Inj) 4 mg Q4H PRN IV PUSH NAUSEA/VOMITING 10/18/16 11:00 10/19/16 00:38 Family History Father from DM complications Mother at 88 y.o. of "old age" 1 sister of some form of cancer in her 40s No other CA per his report Social History Smokes 1/2 pack per day for 38 yrs Occasional Etoh now, per patient few drinks per weekend, but previously heavy EtoH daily Previously smoked pot and used some cocaine in his 20/30s; never used IVD He works as a [employer] with [employer] Physical Exam Vital Signs Vital Signs Date Time Temp Pulse Resp B/P Pulse Ox O2 Delivery O2 Flow Rate FiO2 10/19/16 02:00 106 10/19/16 01:00 95 Non-Rebreather 100 10/19/16 00:00 106 10/19/16 00:00 92 Non-Rebreather 15.00 10/19/16 00:00 97.9 106 26 149/80 89 10/18/16 22:00 104 10/18/16 21:53 23 10/18/16 21:09 95 Nasal Cannula 3.00 10/18/16 20:00 106 10/18/16 20:00 97.7 106 32 151/89 91 10/18/16 19:00 90 Nasal Cannula 5.00 10/18/16 18:00 105 10/18/16 16:00 102 10/18/16 16:00 98.2 102 32 128/75 91 10/18/16 14:00 101 10/18/16 12:00 98.2 100 31 135/77 92 10/18/16 12:00 100 10/18/16 10:00 95 10/18/16 08:08 93 Nasal Cannula 3.00 10/18/16 08:00 93 10/18/16 08:00 98.0 92 29 124/67 91 10/18/16 07:00 94 Simple Mask 8.00 10/18/16 06:00 95 Physical Exam GENERAL: Well-nourished, well-developed patient, in no acute distress SKIN: Warm and dry. HEAD: Normocephalic. EYES: No scleral icterus. No injection or drainage. NECK: Supple, trachea midline. No JVD or lymphadenopathy. CARDIOVASCULAR: Regular rate and rhythm without murmurs, gallops, or rubs. RESPIRATORY: Breath sounds equal bilaterally. No accessory muscle use. GASTROINTESTINAL: Abdomen soft, non-tender, nondistended. MUSCULOSKELETAL: No cyanosis, or edema. BACK: Nontender without obvious deformity. No CVA tenderness. EXTREMITIES: No clubbing cyanosis or edema Laboratory Laboratory Tests Test 10/18/16 10/19/16 10:15 03:35 White Blood Count 19.0 17.7 Red Blood Count 3.99 4.03 Hemoglobin 10.8 11.2 Hematocrit 34.3 34.5 Mean Corpuscular Volume 86.0 85.6 Mean Corpuscular Hemoglobin 27.0 27.8 Mean Corpuscular Hemoglobin 31.4 32.4 Concent Red Cell Distribution Width 17.1 17.5 Platelet Count 527 554 Mean Platelet Volume 7.7 7.8 Neutrophils (%) (Auto) 87.6 89.6 Lymphocytes (%) (Auto) 6.5 3.5 Monocytes (%) (Auto) 5.7 6.6 Eosinophils (%) (Auto) 0.0 0.1 Basophils (%) (Auto) 0.2 0.2 Neutrophils # (Auto) 16.6 15.9 Lymphocytes # (Auto) 1.2 0.6 Monocytes # (Auto) 1.1 1.2 Eosinophils # (Auto) 0.0 0.0 Basophils # (Auto) 0.0 0.0 CBC Comment DIFF FINAL DIFF FINAL Differential Comment Sodium Level 131 132 Potassium Level 4.2 3.8 Chloride Level 98 95 Carbon Dioxide Level 25.7 25.8 Anion Gap 7 11 Blood Urea Nitrogen 25 26 Creatinine 0.76 0.83 Estimat Glomerular Filtration 128 115 Rate Random Glucose 144 159 Calcium Level 9.2 9.3 Total Bilirubin 0.8 Direct Bilirubin 0.4 Indirect Bilirubin 0.4 Aspartate Amino Transf 22 (AST/SGOT) Alanine Aminotransferase 11 (ALT/SGPT) Alkaline Phosphatase 109 Total Protein 7.1 Albumin 2.1 Lipase 135 Date/Time Procedure Status Source Growth 10/17/16 14:40 Gram Stain - Final Resulted Fluid Peritoneal Fluid 10/17/16 14:40 Body Fluid Culture - Preliminary Resulted Fluid Peritoneal Fluid NO GROWTH IN 24 HOURS. 10/17/16 06:15 Urine Culture - Preliminary Resulted Urine Clean Catch NO GROWTH IN 24 HOURS. 10/16/16 19:00 Aerobic Blood Culture - Preliminary Resulted Blood Peripheral NO GROWTH IN 2 DAYS 10/16/16 19:00 Anaerobic Blood Culture - Preliminary Resulted Blood Peripheral NO GROWTH IN 2 DAYS Result Diagram: 10/19/16 0335 10/19/16 0335 Imaging Chest X-Ray 10/16/16 1329 Signed Impressions: Service Date/Time: October 13:57 - CONCLUSION: Left basilar opacification characteristic of pleural fluid accumulation and underlying lung consolidation or mass. Jude Lomeli MD Chest CT 10/16/16 0000 Signed Impressions: Service Date/Time: October 16:59 - CONCLUSION: 1. Huge complex cystic mass/collection within the left upper quadrant which occupies the expected region of the spleen and is incompletely evaluated on this examination. CT of the abdomen will be performed this same day and will allow complete evaluation of this lesion. 2. Bilbasilar patchiness (left worse than right) consistent with atelectasis and/or pneumonia. Clinical correlation is recommended. 3. Small left pleural effusion. 4. Ascites within the upper abdomen. 5. Degenerative changes throughout the thoracic spine. 6. Coronary artery calcifications. Mahin Malin MD Abdomen/Pelvis CT 10/16/16 0000 Signed Impressions: Service Date/Time: October 16:59 - CONCLUSION: 1. Large complex mass/collection within the left upper quadrant measuring 18.7 x 14.9 cm. Differential includes walled-off ruptured spleen with large hematoma, complex pseudocyst from the tail of the pancreas or possible cystic neoplasm. 2. Moderate amount of ascites within the abdomen and pelvis. 3. Calcifications within the head of the pancreas suggestive of chronic calcific pancreatitis. 4. Diffuse thickening of multiple loops of jejunum suggesting jejunitis. 5. Uncomplicated colonic diverticulosis. 6. There is mild ectasia of the infrarenal abdominal aorta. Mahin Malin MD Assessment and Plan Assessment and Plan Abdominal pain - Due to cystic mass lesion - Pending paracentesis versus omental biopsy - Pain control - We'll consult oncology for recommendations workup Nausea vomiting - Due to above - Zofran/Phenergan when necessary - IV fluid hydration Aspiration pneumonia - Zosyn - Chest PT - O2 via nasal cannula to keep sats above 92 Jejunitis - No obstruction defined on the CAT scan Deep GI prophylaxis - Teds SCDs - Lovenox - IV Protonix Critical Care: The total critical care time was 35 minutes. Time to perform other separately billable procedures was not included in the critical care time. Gil Espino MD Oct 19, 2016 05:05
[2016-10-19] MEDS: MORPHINE SULFATE 4 MG/ML INJ IV PUSH PRN ×2 (05:08→08:55)
[2016-10-19] MEDS: METOCLOPRAMIDE HCL 10 MG/2 ML VIAL IV PUSH SCH ×3 (05:42→23:04)
[2016-10-19] MEDS: PANTOPRAZOLE SODIUM 40 MG VIAL IV PUSH SCH (05:42)
--- NOTE | 2016-10-19 08:32 | RADRPT ---
EXAM DATE/TIME: 10/19/2016 07:55 [facility] COMPARISON: CHEST SINGLE AP, October 16, 2016, 13:57. INDICATIONS : Evaluate for pneumonia. MEDICAL HISTORY : Cardiovascular disease. SURGICAL HISTORY : None. ENCOUNTER: Subsequent ACUITY: 4 - 6 days PAIN SCORE: 5/10 LOCATION: Bilateral chest FINDINGS: A single view of the chest demonstrates basilar airspace consolidation and effusions. No pneumothorax . NG enters stomach. Exam is degraded by motion artifact. CONCLUSION: 1. Compared with October 16 there is increasing right basilar airspace consolidation and effusion. Diffe rential diagnosis includes pneumonia and aspiration. There is persistent left basilar consolidation a nd effusion. Kiran Harvey MD on October 19, 2016 at 8:27 Board Certified Radiologist. This report was verified electronically.
[2016-10-19] MEDS: PIPERACIL-TAZO 4.5 GM PREMIX 100 ML IV SCH ×3 (08:55→19:48)
[2016-10-19] MEDS: LACTULOSE SYRUP 20 GM/30 ML CUP PO SCH ×2 (08:55→19:48)
--- NOTE | 2016-10-19 10:09 | HHI.PR ---
Subjective Subjective Notes The patient has minimal complaints today regarding pain. He had persistent nausea and emesis earlier and nasogastric tube was placed. He is now comfortable. He has passed a small amount of flatus and has had no bowel movements. He states that he is breathing better now that he has a partial nonrebreather mask on. Objective Vitals/I&O Vital Signs Date Time Temp Pulse Resp B/P Pulse Ox O2 Delivery O2 Flow Rate FiO2 10/19/16 08:30 93 Partial Rebreather 15.00 10/19/16 08:00 102 10/19/16 08:00 98.3 23 113/55 10/19/16 01:00 100 Labs Laboratory Tests Test 10/18/16 10/19/16 10:15 03:35 White Blood Count 19.0 17.7 Red Blood Count 3.99 4.03 Hemoglobin 10.8 11.2 Hematocrit 34.3 34.5 Mean Corpuscular Volume 86.0 85.6 Mean Corpuscular Hemoglobin 27.0 27.8 Mean Corpuscular Hemoglobin 31.4 32.4 Concent Red Cell Distribution Width 17.1 17.5 Platelet Count 527 554 Mean Platelet Volume 7.7 7.8 Neutrophils (%) (Auto) 87.6 89.6 Lymphocytes (%) (Auto) 6.5 3.5 Monocytes (%) (Auto) 5.7 6.6 Eosinophils (%) (Auto) 0.0 0.1 Basophils (%) (Auto) 0.2 0.2 Neutrophils # (Auto) 16.6 15.9 Lymphocytes # (Auto) 1.2 0.6 Monocytes # (Auto) 1.1 1.2 Eosinophils # (Auto) 0.0 0.0 Basophils # (Auto) 0.0 0.0 CBC Comment DIFF FINAL DIFF FINAL Differential Comment Sodium Level 131 132 Potassium Level 4.2 3.8 Chloride Level 98 95 Carbon Dioxide Level 25.7 25.8 Anion Gap 7 11 Blood Urea Nitrogen 25 26 Creatinine 0.76 0.83 Estimat Glomerular Filtration 128 115 Rate Random Glucose 144 159 Calcium Level 9.2 9.3 Total Bilirubin 0.8 Direct Bilirubin 0.4 Indirect Bilirubin 0.4 Aspartate Amino Transf 22 (AST/SGOT) Alanine Aminotransferase 11 (ALT/SGPT) Alkaline Phosphatase 109 Total Protein 7.1 Albumin 2.1 Lipase 135 Date/Time Procedure Status Source Growth 10/17/16 14:40 Gram Stain - Final Resulted Fluid Peritoneal Fluid 10/17/16 14:40 Body Fluid Culture - Preliminary Resulted Fluid Peritoneal Fluid NO GROWTH IN 24 HOURS. 10/17/16 06:15 Urine Culture - Final Complete Urine Clean Catch NO GROWTH IN 48 HOURS. 10/16/16 19:00 Aerobic Blood Culture - Preliminary Resulted Blood Peripheral NO GROWTH IN 2 DAYS 10/16/16 19:00 Anaerobic Blood Culture - Preliminary Resulted Blood Peripheral NO GROWTH IN 2 DAYS Cardiovascular: Regular Abdomen: Non-tender Narrative Exam The patient has a quite distended abdomen, but he has no tenderness, guarding, or rebound except to very deep palpation where there is minimal tenderness. 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 He has a complex fluid collection in the left upper quadrant in the retroperitoneal space. Plan: I have had several conversations with Dr. Hunter Jones of radiology. In view of the recent respiratory decompensation, it is been decided that the patient will be taken to interventional radiology today for placement of a percutaneous drain. I explained that procedure to the patient as well as the possibility of requiring splenic vessel embolization and possibly surgical intervention in the next 24-48 hours as well. Lucas Jerome MD Oct 19, 2016 10:08
[2016-10-19] MEDS ORDERED: ETOMIDATE 20 MG/10 ML VIAL IV PUSH ONE (10:15)
[2016-10-19] MEDS ORDERED: ROCURONIUM INJ 50 MG/5 ML VIAL IV ONE (10:15)
[2016-10-19] MEDS ORDERED: SODIUM CHLOR 0.9% 1000 ML INJ 1,000 ML IV ONE (10:15)
[2016-10-19] MEDS: PROPOFOL 1000 MG/100 ML INJ 100 ML IV SCH ×2 (10:48→19:48)
[2016-10-19] MEDS: fentaNYL DRIP 250 ML IV SCH (10:49)
--- NOTE | 2016-10-19 11:45 | PD.PROCEDR ---
Procedure Note Procedure PROCEDURE NOTE PROCEDURE: Endotracheal intubation INDICATION: Acute respiratory failure DETAILS OF PROCEDURE: The patient was placed in optimal position and preoxygenated with 100% FiO2 via [id number]. Oximeter oxygen saturation of 98% was obtained prior to direct laryngoscopy. The patient was administered Etomidate 20 mg IV for sedation, Rocuronium 50 mg IV. Direct laryngoscopy was performed with a 3 Salguero laryngoscope blade and a grade 2 Cormack-Lehane view was obtained. On single attempt a size 8.0 endotracheal tube was visualized passing through the cords. Correct placement was confirmed with colorimetric CO2 detector. Breath sounds were equal bilaterally. No sounds auscultated over the stomach. The endotracheal tube was secured with a commercial tube recinos at a depth of 21 cm at the lips. The patient was connected to the ventilator. The patient tolerated the procedure well without any apparent complication. Stat chest x-ray was ordered. Acacia Arreola MD Oct 19, 2016 11:44
[2016-10-19 12:05] LABS: BLOOD GAS BASE EXCESS -0.3 mmol/L (-2-2); BLOOD GAS HCO3 26 mmol/L (22-26); BLOOD GAS METHEMOGLOBIN 0.9 % (0-2); BLOOD GAS O2 HGB SATURATION 97 % (90-100); BLOOD GAS OXYGEN CONTENT 15.5 Vol % (12.0-20.0); BLOOD GAS PCO2 55 mmHg (38-42); BLOOD GAS PO2 154 mmHg (61-120); BLOOD GAS TOTAL HGB 11.2 G/DL (12.0-16.0); TEMP CORR TO 98.6
[2016-10-19 12:06] LABS: CRITICAL VALUE YES; DRAW SITE LT RADIAL; FIO2 100 %; NUMBER OF ARTERIAL PUNCTURES 1; OXYGEN DEVICE VENTILATOR; STAT NO; ULNAR PULSE PRESENT
--- NOTE | 2016-10-19 12:34 | RADRPT ---
EXAM DATE/TIME: 10/19/2016 11:57 [facility] COMPARISON: CTA ABDOMEN & PELVIS W 3D RECON, October 18, 2016, 11:19. CHEST SINGLE AP, October 19, 2016, 7:55. INDICATIONS : Short of breath. MEDICAL HISTORY : Cardiovascular disease. Pancreatitis. SURGICAL HISTORY : None. ENCOUNTER: Subsequent ACUITY: 3 days PAIN SCORE: Non-responsive. LOCATION: Bilateral chest FINDINGS: Single view chest and it's it's ET tube and nasogastric tube in good position. There are moderate siz ed bilateral pleural effusions. There is consolidation of the left lower lobe. The visualized bony st ructures are grossly intact. CONCLUSION: 1. ET tube in good position. 2. Moderate sized pleural effusions bilaterally. Binh Jones MD on October 19, 2016 at 12:30 Board Certified Radiologist. This report was verified electronically.
--- NOTE | 2016-10-19 13:06 | PD.RAD ---
Post Procedure Progress Note Pre Procedure Diagnosis: (1) Mass of abdomen (2) Splenic cyst (3) Pancreatitis Post Procedure Diagnosis: (1) Mass of abdomen (2) Pancreatitis (3) Splenic cyst Procedure Date: Oct 19, 2016 Supervising Radiologist: Binh Jones Anesthesia: Local Plan of Activity Patient to Unit: Critical Care Patient Condition: Poor Additional Comments: 10 irish drain placed in the left upper quadrant. 1.5 liters of dark brown fluid removed. Drain placed to accordion suction Full dictated report to follow See PACS Report for procedural detail/treatment Binh Jones MD Oct 19, 2016 13:06
[2016-10-19] MEDS ORDERED: SODIUM CHLOR 0.9% 250 ML INJ 250 ML IV ONE (13:45)
[2016-10-19] MEDS ORDERED: MIDAZOLAM HCL 5 MG/ML VIAL (1 ML) ONE (13:49)
[2016-10-19] MEDS: SODIUM CHLOR 0.9% 1000 ML INJ 1,000 ML IV SCH ×2 (13:59→23:04)
[2016-10-19] MEDS: SODIUM CHLORIDE 0.9% 10 ML VIAL IRRIGATION SCH (16:00)
[2016-10-19 16:37] LABS: PERITONEAL LYMPHS 0 %; PERITONEAL POLYS(SEGS) 0 %; PERITONEAL WBC 0 /MM3 (0-10)
[2016-10-19] MEDS: CHLORHEXIDINE 0.12% (ORAL KIT) 15 ML CUP MT SCH (19:48)
--- NOTE | 2016-10-19 23:43 | RADRPT ---
EXAM DATE/TIME: 10/19/2016 12:35 [facility] COMPARISON: CHEST SINGLE AP, October 19, 2016, 11:57. CTA ABDOMEN & PELVIS W 3D RECON, October 18, 2016, 11:19. INDICATIONS : Left upper quadrant abscess drain. DEVICE(S): 1.) 10 Fr catheter 2.) Murillo wire 3.) Percustay FLUID: Total volume of 1200 cc of cloudy, red fluid was removed. Fluid was sent for laboratory ordered studies. MEDICAL HISTORY : Pancreatitis. SURGICAL HISTORY : None. ENCOUNTER: Initial ACUITY: 1 day PAIN SCORE: 0/10 LOCATION: Left upper quadrant PROCEDURE: PROCEDURE : CT guided aspiration of a large fluid collection in the left upper quadrant. The risks, benefits and alternatives to the procedure were explained to the patient's family. Written consent was obtained. Using automated exposure control and adjustment of the mA and/or kV according to patient size, radiation dose was kept as low as reasonably achievable to obtain optimal diagnosti c quality images. The site was prepped in sterile fashion. Full sterile technique was used, includi ng cap, mask, sterile gloves and gown and a large sterile sheet. Hand hygiene and 2% chlorhexidine a nd/or betadine/alcohol prep was utilized per protocol for cutaneous antisepsis. The skin and subcuta neous tissues were infiltrated with local anesthetic solution. A suitable site in the left upper quadrant was identified using CT guidance. The skin was anesthetize d with 10 cc 1% lidocaine. A Orr blunt needle was advanced to the skin and into the collection wi thout difficulty. A 0.035 wire was advanced through the needle. A 10 Paraguayan locking tube was advanced over the wire. Position within the collection was confirmed. The catheter was placed to bag drainage. Approximately 1.5 L of dark fluid was removed. CONCLUSION: Uncomplicated drainage of a large fluid collection in the left upper quadrant. This a ppeared to predominantly represent old hemorrhage. Binh Jones MD on October 19, 2016 at 23:38 Board Certified Radiologist. This report was verified electronically.
[2016-10-20] VITALS (18 sets, daily range): BP systolic 87–108; BP diastolic 54–68; PULSE 88–110; RESP 12–20; TEMP 98.7–100.6; O2SAT 90–96
[2016-10-20] MEDS: PIPERACIL-TAZO 4.5 GM PREMIX 100 ML IV SCH ×4 (02:17→20:17)
[2016-10-20] MEDS: PROPOFOL 1000 MG/100 ML INJ 100 ML IV SCH ×3 (02:33→23:51)
[2016-10-20] MEDS: fentaNYL DRIP 250 ML IV SCH ×2 (02:34→11:36)
[2016-10-20 03:47] LABS: BLOOD GAS BASE EXCESS -1.4 mmol/L (-2-2); BLOOD GAS CARBOXYHEMOGLOBIN 1.3 % (0-4); BLOOD GAS HCO3 24 mmol/L (22-26); BLOOD GAS METHEMOGLOBIN 1.1 % (0-2); BLOOD GAS O2 HGB SATURATION 87 % (90-100); BLOOD GAS OXYGEN CONTENT 14.7 Vol % (12.0-20.0); BLOOD GAS PCO2 45 mmHg (38-42); BLOOD GAS PO2 63 mmHg (61-120); TEMP CORR TO 98.6
[2016-10-20 03:48] LABS: CRITICAL VALUE YES; OXYGEN DEVICE VENTILATOR
[2016-10-20 03:49] LABS: FIO2 60 %; VENT SETTINGS SEE COMMENTS
[2016-10-20 03:50] LABS: DRAW SITE RT RADIAL; NUMBER OF ARTERIAL PUNCTURES 1; STAT NO; ULNAR PULSE PRESENT
[2016-10-20] MEDS: RESP: ALBUTEROL 2.5 MG/IPRATROPIUM 0.5 MG NEB (PRN) NEB (04:53)
[2016-10-20] MEDS: PANTOPRAZOLE SODIUM 40 MG VIAL IV PUSH SCH (06:18)
[2016-10-20] MEDS: METOCLOPRAMIDE HCL 10 MG/2 ML VIAL IV PUSH SCH ×3 (06:18→22:00)
--- NOTE | 2016-10-20 08:13 | HHI.CCPN ---
Subjective Remarks/Hospital Course Hospital Course: 56-year-old male without significant past medical history admitted with chest and abdomen pain. His pain is Fairly severe recently, but has been ongoing for 1 week. States is also been having some nausea without vomiting. Denies any weight loss. He is an active tobacco smoker. He previously drank Etoh heavily, but very little in last 6 mos. He denies any trauma to the left side of his abdomen, being in MVA or MCA recently. He admits some fevers over the last week. He was found to have left abdominal cystic mass however unclear if it's ruptured splenic fluid collection vs large pancreatic pseudocyst vs malignant. He also has bilateral basilar atelectasis on CT and potentially a small area of pneumonia on the left base with associated effusion. Per radiology and general surgery discussion a malignancy is high concern. The interventional radiology is considering omental biopsy and paracentesis. Subjective: 10/20: Worsening hypoxemia overnight, now on fio2 60% with pao2 63. severe abdominal distension is still present and visibly limits pulmonary excursion on physical exam. Objective Vital Signs Date Time Temp Pulse Resp B/P Pulse Ox O2 Delivery O2 Flow Rate FiO2 10/20/16 07:00 89 Mechanical Ventilator 60 10/20/16 06:00 110 10/20/16 04:00 99.8 20 108/59 10/19/16 08:30 15.00 Intake and Output 10/19/16 10/19/16 10/20/16 08:00 16:00 00:00 Intake Total 50 ml 950 ml 1729 ml Output Total 1125 ml 800 ml 275 ml Balance -1075 ml 150 ml 1454 ml Result Diagram: 10/19/16 0335 10/19/16 0335 Other Results Laboratory Tests Test 10/19/16 10/20/16 12:00 03:32 Blood Gas Puncture Site LT RADIAL RT RADIAL Blood Gas Patient Temperature 98.6 98.6 Blood Gas HCO3 26 mmol/L 24 mmol/L (22-26) (22-26) Blood Gas Base Excess -0.3 mmol/L -1.4 mmol/L (-2-2) (-2-2) Blood Gas Oxygen Saturation 97 % (90-100) 87 % (90-100) Arterial Blood pH 7.29 7.34 (7.380-7.420) (7.380-7.420) Arterial Blood Partial 55 mmHg (38-42) 45 mmHg (38-42) Pressure CO2 Arterial Blood Partial 154 mmHg 63 mmHg Pressure O2 (61-120) (61-120) Arterial Blood Oxygen Content 15.5 Vol % 14.7 Vol % (12.0-20.0) (12.0-20.0) Arterial Blood 1.0 % (0-4) 1.3 % (0-4) Carboxyhemoglobin Arterial Blood Methemoglobin 0.9 % (0-2) 1.1 % (0-2) Blood Gas Hemoglobin 11.2 G/DL 12.0 G/DL (12.0-16.0) (12.0-16.0) Oxygen Delivery Device VENTILATOR VENTILATOR Blood Gas Ventilator Setting SEE COMMENTS Blood Gas Inspired Oxygen 100 % 60 % Imaging Chest X-Ray 10/16/16 1329 Signed Impressions: Service Date/Time: October 13:57 - CONCLUSION: Left basilar opacification characteristic of pleural fluid accumulation and underlying lung consolidation or mass. Jude Lomeli MD Chest CT 10/16/16 0000 Signed Impressions: Service Date/Time: October 16:59 - CONCLUSION: 1. Huge complex cystic mass/collection within the left upper quadrant which occupies the expected region of the spleen and is incompletely evaluated on this examination. CT of the abdomen will be performed this same day and will allow complete evaluation of this lesion. 2. Bilbasilar patchiness (left worse than right) consistent with atelectasis and/or pneumonia. Clinical correlation is recommended. 3. Small left pleural effusion. 4. Ascites within the upper abdomen. 5. Degenerative changes throughout the thoracic spine. 6. Coronary artery calcifications. Mahin Malin MD Abdomen/Pelvis CT 10/16/16 0000 Signed Impressions: Service Date/Time: October 16:59 - CONCLUSION: 1. Large complex mass/collection within the left upper quadrant measuring 18.7 x 14.9 cm. Differential includes walled-off ruptured spleen with large hematoma, complex pseudocyst from the tail of the pancreas or possible cystic neoplasm. 2. Moderate amount of ascites within the abdomen and pelvis. 3. Calcifications within the head of the pancreas suggestive of chronic calcific pancreatitis. 4. Diffuse thickening of multiple loops of jejunum suggesting jejunitis. 5. Uncomplicated colonic diverticulosis. 6. There is mild ectasia of the infrarenal abdominal aorta. Mahin Malin MD Objective Remarks GENERAL: middle-aged male, lying in bed, intubated, sedated. critically ill. SKIN: Warm and dry. HEENT: Normocephalic, atraumatic. pupils equal, round, reactive, conjugate. mucous membranes moist. NECK: trachea midline. JVD difficult to assess due to large neck circumference. CARDIOVASCULAR: normal rate, regular rhythm. sinus by tele. RESPIRATORY: intubated, sedated. significant accessory muscle use, even on mechanical ventilation due to abdominal distension. PRVC 60% fio2, peep 8. GASTROINTESTINAL: Abdomen soft, non-tender, severely distended. tympanic. MUSCULOSKELETAL: No cyanosis, or edema. EXTREMITIES: No clubbing cyanosis or edema Neuro: RASS -1. follows commands. A/P Assessment and Plan Assessment: 56yM with newly diagnosed abdominal mass with associated severe abdominal distension. He additionally has developed acute hypoxic respiratory failure which is likely multifactorial, and includes a component of likely aspiration pneumonia, possible volume overload, and likely poor pulmonary mechanics secondary to severe abdominal distension. He also has what appears to be nonobstructive ileus which is complicating the abdominal distension. His acute hypoxemia is worsening overnight, and I think the largest part of this is abdominal distension and poor pulmonary mechanics. We will attempt APRV mode of ventilation to help assist with pulmonary recruitment and improved mechanics. He remains critically ill and is clinically worsening despite therapy. Plan by systems: Neurologic: Abdominal pain Fentanyl, propofol for goal RASS -2 Tylenol as needed for pain or fever --stop morphine. start dilaudid 1mg iv q4h prn for breakthrough pain. Respiratory: Acute hypoxic respiratory failure Aspiration pneumonia Worsening FiO2 despite conventional mode of ventilation start APRV 26/0, 4/0.9 (I:E 4.4:1). wean fio2 for goal spo2 > 90%. -- no SBT today given fio2 requirements -- hob @ 30 degrees -- vent bundle -- nebs. Antibiotics described below Cardiovascular: Possible Intravascular Volume Overload Continue telemetry. --slight pulmonary vascular congestion on cxr. will trial one dose lasix 20mg iv x 1 and stop mivf. Renal: Continue Bull for strict I's and O's in this intubated patient -- Strict I/Os FEN/GI: Persistent nausea/vomiting Left upper quadrant abdominal mass Nonobstructive ileus Status post intra-abdominal drain placement 10/19 -- continue NPO -- will increase bowel regimen to include senna/colace, miralax, dulcolax suppository, and an enema today. attempt to improve ileus to improve pulmonary mechanics. -- Dr. Jerome: gen surg following. -- per reports, plan for OR this week. -- continue zofran prn for nausea. -- daily bmp -- ICU electrolyte protocol. Heme/ID: Anemia secondary to acute blood loss Aspiration Pneumonia -- daily cbc -- does not meet transfusion triggers at this time -- continue Zosyn iv -- f/u cultures, currently NGTD. Endocrine: Hyperglycemia of critical illness -- SSI, medium scale, every 6 hours Prophylaxis: GI Prophylaxis Protonix 40 times IV every 24 hours DVT Prophylaxis -- SCDs Lovenox currently on hold for possible procedures Lines: Peripheral IVs Bull Dispo: Remain in the ICU. Very critically ill. Worsening respiratory status. This patient remains critically ill with one or more organ systems which are or may become a threat to life. I have spent in excess of 41 minutes discontinuously in the care and management of this patient. This time is exclusive of procedures, and includes, but is not limited to, evaluation of the patient, review of the medical record, discussions with family, consultants, nursing staff, or respiratory therapy, and documentation in the medical record. Dino Schaffer MD Oct 20, 2016 08:12
[2016-10-20] MEDS ORDERED: POTASSIUM PHOSPHATE MONOBASIC 500 MG TAB PO/TUBE PRN (08:15)
[2016-10-20] MEDS ORDERED: POTASSIUM PHOSPHATE MONOBASIC 500 MG TAB PO PRN (08:15)
[2016-10-20] MEDS ORDERED: MAGNESIUM SULFATE INJ 4 GM in SODIUM CHLORIDE 0.9% INJ 92 ML IV PRN (08:15)
[2016-10-20] MEDS ORDERED: POTASSIUM PHOSPHATE INJ 30 MMOL in SODIUM CHLOR 0.9% 250 ML INJ 250 ML IV PRN (08:15)
[2016-10-20] MEDS ORDERED: MAGNESIUM SULFATE INJ 2 GM in SODIUM CHLORIDE 0.9% INJ 96 ML IV PRN (08:15)
[2016-10-20] MEDS ORDERED: MAGNESIUM OXIDE 400 MG TAB PO PRN (08:15)
[2016-10-20] MEDS ORDERED: SODIUM PHOSPHATE INJ 30 MMOL in SODIUM CHLOR 0.9% 250 ML INJ 240 ML IV PRN (08:15)
[2016-10-20] MEDS ORDERED: POTASSIUM CHLOR 40 MEQ PREMIX 100 ML IV PRN ×2 (08:15)
[2016-10-20] MEDS ORDERED: FUROSEMIDE 20 MG/2 ML VIAL IV PUSH ONE (08:30)
[2016-10-20] MEDS ORDERED: DEXTROSE 50% IN WATER 50 ML VIAL(D50) IV PUSH PRN (08:30)
[2016-10-20] MEDS ORDERED: HYDROmorphone HCL PF 1 MG/ML VIAL IV PUSH PRN (09:00)
[2016-10-20] MEDS: POLYETHYLENE GLYCOL 17 GM PKG PO SCH ×2 (09:30→20:17)
[2016-10-20] MEDS: CHLORHEXIDINE 0.12% (ORAL KIT) 15 ML CUP MT SCH ×2 (09:30→20:00)
[2016-10-20] MEDS: LACTULOSE SYRUP 20 GM/30 ML CUP PO SCH ×2 (09:30→20:17)
[2016-10-20] MEDS: BISACODYL 10 MG SUPP RECTAL SCH (09:31)
[2016-10-20 11:29] LABS: HEMATOCRIT 28.3 % (39.0-51.0); MEAN CELL VOLUME 85.5 FL (80.0-100.0); MEAN CORPUSCULAR HEMOGLOBIN 27.4 PG (27.0-34.0); MEAN CORPUSCULAR HGB CONC 32.1 % (32.0-36.0); PLATELET COUNT 533 TH/MM3 (150-450); RED BLOOD COUNT 3.31 MIL/MM3 (4.50-5.90); RED CELL DISTRIBUTION WIDTH 17.7 % (11.6-17.2); WHITE BLOOD COUNT 33.4 TH/MM3 (4.0-11.0)
[2016-10-20 11:31] LABS: REVIEW FLAG FINAL
[2016-10-20] MEDS: INSULIN NovoLIN REGULAR SUPPLEMENTAL SCALE SQ SCH ×2 (12:00→18:00)
[2016-10-20 12:31] LABS: BICARBONATE 24.9 MEQ/L (21.0-32.0); POTASSIUM 3.9 MEQ/L (3.5-5.1)
[2016-10-20] MEDS: SODIUM CHLORIDE 0.9% 10 ML VIAL IRRIGATION SCH (16:30)
[2016-10-21] VITALS (15 sets, daily range): BP systolic 90–127; BP diastolic 54–67; PULSE 88–107; RESP 12–20; TEMP 98.1–101; O2SAT 94–97
[2016-10-21] MEDS: PIPERACIL-TAZO 4.5 GM PREMIX 100 ML IV SCH ×4 (03:15→20:27)
[2016-10-21] MEDS: fentaNYL DRIP 250 ML IV SCH ×2 (03:48→22:27)
[2016-10-21 05:25] LABS: HEMATOCRIT 25.8 % (39.0-51.0); MEAN CELL VOLUME 86.3 FL (80.0-100.0); MEAN CORPUSCULAR HEMOGLOBIN 26.7 PG (27.0-34.0); PLATELET COUNT 460 TH/MM3 (150-450); RED BLOOD COUNT 2.99 MIL/MM3 (4.50-5.90); RED CELL DISTRIBUTION WIDTH 17.6 % (11.6-17.2); WHITE BLOOD COUNT 39.5 TH/MM3 (4.0-11.0)
[2016-10-21] MEDS: METOCLOPRAMIDE HCL 10 MG/2 ML VIAL IV PUSH SCH ×3 (05:36→22:27)
[2016-10-21 05:37] LABS: REVIEW FLAG FINAL
[2016-10-21 05:51] LABS: BICARBONATE 20.6 MEQ/L (21.0-32.0)
[2016-10-21] MEDS: INSULIN NovoLIN REGULAR SUPPLEMENTAL SCALE SQ SCH ×4 (06:00→18:00)
[2016-10-21] MEDS: PANTOPRAZOLE SODIUM 40 MG VIAL IV PUSH SCH (06:01)
[2016-10-21 06:31] LABS: BODY FLUID LDH 3315 U/L (()); BODY FLUID LDH SOURCE PERITONEAL (())
[2016-10-21] MEDS: POTASSIUM CHLOR 20 MEQ PREMIX 100 ML IV PRN ×3 (06:53→16:00)
--- NOTE | 2016-10-21 08:18 | RADRPT ---
EXAM DATE/TIME: 10/21/2016 07:38 [facility] COMPARISON: CHEST SINGLE AP, October 19, 2016, 11:57. INDICATIONS : Atelectasis. MEDICAL HISTORY : Pancreatitis. SURGICAL HISTORY : None. ENCOUNTER: Subsequent ACUITY: 4 - 6 days PAIN SCORE: Non-responsive. LOCATION: Bilateral chest FINDINGS: A single view of the chest demonstrates nasogastric tube with tip in distal esophagus. Right lung dem onstrates some minimal patchy densities in the right lower lobe. No pneumothorax. Prominent consolida tion left lower lobe. Small caliber left-sided chest tube seen. Left pleural effusion has been evacua colin. No pneumothorax on the left. Endotracheal tube are unchanged. Osseous structures are intact. CONCLUSION: 1. Nasogastric tube with tip in distal esophagus. It should be advanced at least 10 cm. 2. Dense consolidation left lower lobe. 3. Small caliber left-sided chest tube without pneumothorax. 4. Minimal patchy densities right lower lobe with significant improvement when compared to previous s tudy. Abdelrahman Milton MD on October 21, 2016 at 8:13 Board Certified Radiologist. This report was verified electronically.
[2016-10-21] MEDS: POLYETHYLENE GLYCOL 17 GM PKG PO SCH ×2 (08:36→20:27)
[2016-10-21] MEDS: CHLORHEXIDINE 0.12% (ORAL KIT) 15 ML CUP MT SCH ×2 (08:43→20:27)
[2016-10-21] MEDS: LACTULOSE SYRUP 20 GM/30 ML CUP PO SCH ×2 (09:00→20:27)
[2016-10-21] MEDS: BISACODYL 10 MG SUPP RECTAL SCH (09:00)
[2016-10-21] MEDS: SODIUM CHLORIDE 0.9% 10 ML VIAL IRRIGATION SCH (16:00)
--- NOTE | 2016-10-21 16:39 | HHI.PR ---
Subjective Subjective Notes The patient is intubated but arousable. He denies any discomfort. He is had multiple bowel movements today. Objective Vitals/I&O Vital Signs Date Time Temp Pulse Resp B/P Pulse Ox O2 Delivery O2 Flow Rate FiO2 10/21/16 12:00 99.0 100 12 108/60 96 10/21/16 12:00 55 10/21/16 09:41 Ventilator 10/19/16 08:30 15.00 Labs Laboratory Tests Test 10/21/16 04:45 White Blood Count 39.5 Red Blood Count 2.99 Hemoglobin 8.0 Hematocrit 25.8 Mean Corpuscular Volume 86.3 Mean Corpuscular Hemoglobin 26.7 Mean Corpuscular Hemoglobin 31.0 Concent Red Cell Distribution Width 17.6 Platelet Count 460 Mean Platelet Volume 8.0 Sodium Level 139 Potassium Level 3.0 Chloride Level 105 Carbon Dioxide Level 20.6 Anion Gap 13 Blood Urea Nitrogen 41 Creatinine 1.85 Estimat Glomerular Filtration 46 Rate Random Glucose 92 Calcium Level 8.2 Date/Time Procedure Status Source Growth 10/20/16 11:32 Gram Stain - Final Resulted Sputum Endotracheal 10/20/16 11:32 Sputum Culture - Preliminary Resulted Sputum Endotracheal MODERATE GROWTH NORMAL RESPIRATORY FL... 10/19/16 13:00 Gram Stain Ordered Wound Lung Pending 10/19/16 13:00 Wound Culture Ordered Wound Lung Pending 10/19/16 13:00 Fungal Smear - Final Resulted Fluid Peritoneal Fluid NO FUNGAL ELEMENTS SEEN. 10/19/16 13:00 Fungal Culture Resulted Fluid Peritoneal Fluid Pending 10/19/16 13:00 Fungal Smear Ordered Wound Lung Pending 10/19/16 13:00 Fungal Culture Ordered Wound Lung Pending 10/19/16 13:00 Acid Fast Stain Ordered Wound Lung Pending 10/19/16 13:00 Mycobacterial Culture Ordered Wound Lung Pending 10/17/16 06:15 Urine Culture - Final Complete Urine Clean Catch NO GROWTH IN 48 HOURS. 10/16/16 19:00 Aerobic Blood Culture - Final Complete Blood Peripheral NO GROWTH IN 5 DAYS 10/16/16 19:00 Anaerobic Blood Culture - Final Complete Blood Peripheral NO GROWTH IN 5 DAYS Cardiovascular: Regular Lungs: Other Narrative Exam Breath sounds are diminished at the bases. His abdomen is still very distended but very tympanitic as well. He he has no tenderness, guarding, or rebound. A/P Assessment and Plan Impression: Status post drainage of more than 2 L from what appeared to be a pancreatic pseudocyst. He still a significant pulmonary compromise but his abdomen remains benign. Plan: I discussed the situation with Dr. Schaffer and we agree that a CT scan will be performed today to assure that there is no intestinal obstruction. The area of the pseudocyst will be checked as well and further drainage may be necessary. Lucas Jerome MD Oct 21, 2016 16:39
--- NOTE | 2016-10-21 17:34 | HHI.CCPN ---
Subjective Remarks/Hospital Course Hospital Course: 56-year-old male without significant past medical history admitted with chest and abdomen pain. His pain is Fairly severe recently, but has been ongoing for 1 week. States is also been having some nausea without vomiting. Denies any weight loss. He is an active tobacco smoker. He previously drank Etoh heavily, but very little in last 6 mos. He denies any trauma to the left side of his abdomen, being in MVA or MCA recently. He admits some fevers over the last week. He was found to have left abdominal cystic mass however unclear if it's ruptured splenic fluid collection vs large pancreatic pseudocyst vs malignant. He also has bilateral basilar atelectasis on CT and potentially a small area of pneumonia on the left base with associated effusion. Per radiology and general surgery discussion a malignancy is high concern. The interventional radiology is considering omental biopsy and paracentesis. Subjective: 10/20: Worsening hypoxemia overnight, now on fio2 60% with pao2 63. severe abdominal distension is still present and visibly limits pulmonary excursion on physical exam. 10/21: ileus improving and multiple bowel movements yesterday and overnight. abdominal drain with minimal sanguinous output. despite this, patient remains significantly distended with tympanic abdomen. patient is awake and alert and following commands, denying any complaints. patient expresses that he feels better today than yesterday with less abdominal pain. I discussed the case with Dr. Jones and Dr. Jerome, and we feel that repeat imaging of the abdomen will allow us to see interval change in size of pancreatic cyst as well as degree of persistent colonic ileus despite significant BMs. Objective Vital Signs Date Time Temp Pulse Resp B/P Pulse Ox O2 Delivery O2 Flow Rate FiO2 10/21/16 12:00 99.0 100 12 108/60 96 10/21/16 12:00 55 10/21/16 09:41 Ventilator 10/19/16 08:30 15.00 Intake and Output 10/20/16 10/20/16 10/21/16 08:00 16:00 00:00 Intake Total 1232 ml 2219 ml Output Total 125 ml 1140 ml Balance 1107 ml 1079 ml Result Diagram: 10/21/16 0445 10/21/16 0445 Imaging Chest X-Ray 10/16/16 1329 Signed Impressions: Service Date/Time: October 13:57 - CONCLUSION: Left basilar opacification characteristic of pleural fluid accumulation and underlying lung consolidation or mass. Jude Lomeli MD Chest CT 10/16/16 0000 Signed Impressions: Service Date/Time: October 16:59 - CONCLUSION: 1. Huge complex cystic mass/collection within the left upper quadrant which occupies the expected region of the spleen and is incompletely evaluated on this examination. CT of the abdomen will be performed this same day and will allow complete evaluation of this lesion. 2. Bilbasilar patchiness (left worse than right) consistent with atelectasis and/or pneumonia. Clinical correlation is recommended. 3. Small left pleural effusion. 4. Ascites within the upper abdomen. 5. Degenerative changes throughout the thoracic spine. 6. Coronary artery calcifications. Mahin Malin MD Abdomen/Pelvis CT 10/16/16 0000 Signed Impressions: Service Date/Time: October 16:59 - CONCLUSION: 1. Large complex mass/collection within the left upper quadrant measuring 18.7 x 14.9 cm. Differential includes walled-off ruptured spleen with large hematoma, complex pseudocyst from the tail of the pancreas or possible cystic neoplasm. 2. Moderate amount of ascites within the abdomen and pelvis. 3. Calcifications within the head of the pancreas suggestive of chronic calcific pancreatitis. 4. Diffuse thickening of multiple loops of jejunum suggesting jejunitis. 5. Uncomplicated colonic diverticulosis. 6. There is mild ectasia of the infrarenal abdominal aorta. Mahin Malin MD Objective Remarks GENERAL: middle-aged male, lying in bed, intubated, sedated. critically ill. SKIN: Warm and dry. HEENT: Normocephalic, atraumatic. pupils equal, round, reactive, conjugate. mucous membranes moist. NECK: trachea midline. JVD difficult to assess due to large neck circumference. CARDIOVASCULAR: normal rate, regular rhythm. sinus by tele. RESPIRATORY: intubated, sedated. somewhat improved accessory muscle use. still with some abdominal breathing pattern. on APRV 26/0 4/0.9, 40% fio2. GASTROINTESTINAL: Abdomen soft, non-tender, moderately distended. tympanic. MUSCULOSKELETAL: No cyanosis, or edema. EXTREMITIES: No clubbing cyanosis or edema Neuro: RASS -1. follows commands. A/P Assessment and Plan Assessment: 56yM with newly diagnosed abdominal mass with associated severe abdominal distension. He additionally has developed acute hypoxic respiratory failure which is likely multifactorial, and includes a component of likely aspiration pneumonia, possible volume overload, and likely poor pulmonary mechanics secondary to severe abdominal distension. He also has what appears to be nonobstructive ileus which is complicating the abdominal distension. Will repeat imaging today to eval interval change. Neostigmine may help alleviate colonic ileus if no obstruction is noted. Plan by systems: Neurologic: Abdominal pain- persistent, slightly improved. Fentanyl, propofol for goal RASS -2 Tylenol as needed for pain or fever --continue dilaudid 1mg iv q4h prn for breakthrough pain. Respiratory: Acute hypoxic respiratory failure- persistent, stable. Aspiration pneumonia continue APRV 26/0, 4/0.9 (I:E 4.4:1). wean fio2 for goal spo2 > 90%. -- no SBT today given fio2 requirements -- hob @ 30 degrees -- vent bundle -- nebs. Antibiotics described below Cardiovascular: Continue telemetry. --did not diurese well with lasix, today appears more euvolemic. slight bump in Cr. likely not volume overloaded by my assessment today. Renal: Continue Bull for strict I's and O's in this intubated patient -- Strict I/Os FEN/GI: Persistent nausea/vomiting Left upper quadrant abdominal mass Nonobstructive ileus Status post intra-abdominal drain placement 10/19 -- continue NPO -- continue increased bowel regimen: senna/colace, miralax, dulcolax suppository -- repeat CT abd/pelvis with PO contrast -- Dr. Jerome: gen surg following. -- continue zofran prn for nausea. -- daily bmp -- ICU electrolyte protocol. Heme/ID: Anemia secondary to acute blood loss Aspiration Pneumonia -- daily cbc -- does not meet transfusion triggers at this time -- continue Zosyn iv -- f/u cultures, currently NGTD. Endocrine: Hyperglycemia of critical illness -- SSI, medium scale, every 6 hours Prophylaxis: GI Prophylaxis Protonix 40 times IV every 24 hours DVT Prophylaxis -- SCDs restart lovenox Lines: Peripheral IVs Bull Dispo: Remain in the ICU. Dino Schaffer MD Oct 21, 2016 17:34
[2016-10-21] MEDS ORDERED: DIATRIZOATE MEGLUM/DIATRIZOATE SOD 9 ML CUP PO ONE (18:00)
--- NOTE | 2016-10-21 23:49 | RADRPT ---
EXAM DATE/TIME: 10/21/2016 23:19 [facility] COMPARISON: CTA ABDOMEN & PELVIS W 3D RECON, October 18, 2016, 11:19. CT ABDOMEN & PELVIS W CONTRAST, October 16, 2016 , 16:59. INDICATIONS : Abdominal pain. Evaluate for obstruction. ORAL CONTRAST: Prescribed oral contrast ingested. RADIATION DOSE: 13.08 CTDIvol (mGy) MEDICAL HISTORY : Pancreatitis. SURGICAL HISTORY : None. ENCOUNTER: Subsequent ACUITY: 4 - 6 days PAIN SCALE: 5/10 LOCATION: All quadrants. TECHNIQUE: Volumetric scanning of the abdomen and pelvis was performed. Using automated exposure control and ad justment of the mA and/or kV according to patient size, radiation dose was kept as low as reasonably achievable to obtain optimal diagnostic quality images. FINDINGS: A drain is now seen in the left upper quadrant collection which is considerably smaller in the interi m, currently approximately 9.2 x 10.9 cm in greatest transaxial dimension. It contacts the tail the p ancreas. Patchy calcification seen in the pancreas, especially the pancreatic head, typical of chroni c pancreatitis changes. I don't clearly see acute pancreatitis. Noncontrast appearance of the liver, adrenal glands and kidneys within normal limits. The jejunum is moderately distended. The ileum is decompressed. I don't see an abrupt caliber change. Normal caliber colon. There is moderate body wall edema. Trace mesenteric edema and small ascites noted. Consolidation again seen of the visualized lung bases, left worse than right. CONCLUSION: 1. Distended jejunum and with a fairly gradual transition to decompressed ileum. Air and stool seen i n the colon. I believe this likely represents proximal small bowel ileus rather than obstruction. Abd ominal x-ray surveillance recommended. 2. Stomach is decompressed with a nasogastric tube. 3. Interim drainage of the left upper quadrant/perisplenic fluid collection. The fluid collection kimberlee sures smaller in the interim. 4. Trace ascites and moderate anasarca. 5. Left greater than right basilar consolidation again noted. Josué Kaur MD on October 21, 2016 at 23:42 Board Certified Radiologist. This report was verified electronically.
[2016-10-21] MEDS: PROPOFOL 1000 MG/100 ML INJ 100 ML IV SCH (23:58)
[2016-10-22] VITALS (18 sets, daily range): BP systolic 97–133; BP diastolic 58–76; PULSE 89–108; RESP 13–21; TEMP 98.2–100.6; O2SAT 92–100
[2016-10-22] MEDS: PIPERACIL-TAZO 4.5 GM PREMIX 100 ML IV SCH ×4 (02:04→19:59)
[2016-10-22 04:33] LABS: BICARBONATE 23.1 MEQ/L (21.0-32.0); POTASSIUM 3.8 MEQ/L (3.5-5.1)
[2016-10-22 04:46] LABS: HEMATOCRIT 25.5 % (39.0-51.0); MEAN CELL VOLUME 85.7 FL (80.0-100.0); MEAN CORPUSCULAR HEMOGLOBIN 26.7 PG (27.0-34.0); MEAN CORPUSCULAR HGB CONC 31.2 % (32.0-36.0); PLATELET COUNT 505 TH/MM3 (150-450); RED BLOOD COUNT 2.97 MIL/MM3 (4.50-5.90); RED CELL DISTRIBUTION WIDTH 17.6 % (11.6-17.2)
[2016-10-22 04:48] LABS: REVIEW FLAG FINAL
[2016-10-22] MEDS: INSULIN NovoLIN REGULAR SUPPLEMENTAL SCALE SQ SCH ×4 (06:00→18:00)
[2016-10-22] MEDS ORDERED: NEOSTIGMINE 3 MG/3 ML SYR IV ONE (06:00)
[2016-10-22] MEDS: PROPOFOL 1000 MG/100 ML INJ 100 ML IV SCH ×2 (06:08→11:47)
[2016-10-22] MEDS: METOCLOPRAMIDE HCL 10 MG/2 ML VIAL IV PUSH SCH ×3 (06:08→21:34)
[2016-10-22] MEDS: PANTOPRAZOLE SODIUM 40 MG VIAL IV PUSH SCH (06:10)
[2016-10-22] MEDS ORDERED: NEOSTIGMINE METHYLSULFATE 10 MG/10 ML VIAL IV PUSH ONE (06:30)
[2016-10-22] MEDS: ENOXAPARIN SODIUM 40 MG/0.4 ML SYRINGE SQ SCH (08:37)
[2016-10-22] MEDS: CHLORHEXIDINE 0.12% (ORAL KIT) 15 ML CUP MT SCH ×2 (08:38→19:59)
[2016-10-22] MEDS ORDERED: ATROPINE SULFATE 1 MG/10 ML SYRINGE ONE (08:53)
[2016-10-22] MEDS: POLYETHYLENE GLYCOL 17 GM PKG PO SCH ×2 (09:00→19:58)
[2016-10-22] MEDS: BISACODYL 10 MG SUPP RECTAL SCH (09:00)
[2016-10-22] MEDS: LACTULOSE SYRUP 20 GM/30 ML CUP PO SCH ×2 (09:00→20:00)
--- NOTE | 2016-10-22 09:47 | HHI.CCPN ---
Subjective Remarks/Hospital Course Hospital Course: 56-year-old male without significant past medical history admitted with chest and abdomen pain. His pain is Fairly severe recently, but has been ongoing for 1 week. States is also been having some nausea without vomiting. Denies any weight loss. He is an active tobacco smoker. He previously drank Etoh heavily, but very little in last 6 mos. He denies any trauma to the left side of his abdomen, being in MVA or MCA recently. He admits some fevers over the last week. He was found to have left abdominal cystic mass however unclear if it's ruptured splenic fluid collection vs large pancreatic pseudocyst vs malignant. He also has bilateral basilar atelectasis on CT and potentially a small area of pneumonia on the left base with associated effusion. Per radiology and general surgery discussion a malignancy is high concern. The interventional radiology is considering omental biopsy and paracentesis. Subjective: 10/20: Worsening hypoxemia overnight, now on fio2 60% with pao2 63. severe abdominal distension is still present and visibly limits pulmonary excursion on physical exam. 10/21: ileus improving and multiple bowel movements yesterday and overnight. abdominal drain with minimal sanguinous output. despite this, patient remains significantly distended with tympanic abdomen. patient is awake and alert and following commands, denying any complaints. patient expresses that he feels better today than yesterday with less abdominal pain. I discussed the case with Dr. Jones and Dr. Jerome, and we feel that repeat imaging of the abdomen will allow us to see interval change in size of pancreatic cyst as well as degree of persistent colonic ileus despite significant BMs. 10/22: repeat CT abd/pelvis with evidence of ongoing ileus, size of mass has significantly improved. discussed care again with Dr. Jerome who agrees with neostigmine plan to assist with colonic decompression. Objective Vital Signs Date Time Temp Pulse Resp B/P Pulse Ox O2 Delivery O2 Flow Rate FiO2 10/22/16 07:29 98 55 10/22/16 06:00 93 10/22/16 04:00 100.1 13 110/61 10/21/16 19:00 Mechanical Ventilator 10/19/16 08:30 15.00 Intake and Output 10/21/16 10/21/16 10/22/16 08:00 16:00 00:00 Intake Total 853 ml 682 ml 992 ml Output Total 375 ml 675 ml 450 ml Balance 478 ml 7 ml 542 ml Result Diagram: 10/22/16 0346 10/22/16 0346 Imaging Chest X-Ray 10/16/16 1329 Signed Impressions: Service Date/Time: October 13:57 - CONCLUSION: Left basilar opacification characteristic of pleural fluid accumulation and underlying lung consolidation or mass. Jude Lomeli MD Chest CT 10/16/16 0000 Signed Impressions: Service Date/Time: October 16:59 - CONCLUSION: 1. Huge complex cystic mass/collection within the left upper quadrant which occupies the expected region of the spleen and is incompletely evaluated on this examination. CT of the abdomen will be performed this same day and will allow complete evaluation of this lesion. 2. Bilbasilar patchiness (left worse than right) consistent with atelectasis and/or pneumonia. Clinical correlation is recommended. 3. Small left pleural effusion. 4. Ascites within the upper abdomen. 5. Degenerative changes throughout the thoracic spine. 6. Coronary artery calcifications. Mahin Malin MD Abdomen/Pelvis CT 10/16/16 0000 Signed Impressions: Service Date/Time: October 16:59 - CONCLUSION: 1. Large complex mass/collection within the left upper quadrant measuring 18.7 x 14.9 cm. Differential includes walled-off ruptured spleen with large hematoma, complex pseudocyst from the tail of the pancreas or possible cystic neoplasm. 2. Moderate amount of ascites within the abdomen and pelvis. 3. Calcifications within the head of the pancreas suggestive of chronic calcific pancreatitis. 4. Diffuse thickening of multiple loops of jejunum suggesting jejunitis. 5. Uncomplicated colonic diverticulosis. 6. There is mild ectasia of the infrarenal abdominal aorta. Mahin Malin MD Objective Remarks GENERAL: middle-aged male, lying in bed, intubated, sedated. critically ill. SKIN: Warm and dry. HEENT: Normocephalic, atraumatic. pupils equal, round, reactive, conjugate. mucous membranes moist. NECK: trachea midline. JVD difficult to assess due to large neck circumference. CARDIOVASCULAR: normal rate, regular rhythm. sinus by tele. RESPIRATORY: intubated, sedated. improved accessory muscle use. still with some abdominal breathing pattern. on APRV 26/0 4/0.9, 40% fio2. GASTROINTESTINAL: Abdomen soft, non-tender, moderately distended. tympanic. MUSCULOSKELETAL: No cyanosis, or edema. EXTREMITIES: No clubbing cyanosis or edema Neuro: RASS -1. follows commands. A/P Assessment and Plan Assessment: 56yM with newly diagnosed abdominal mass with associated severe abdominal distension. He additionally has developed acute hypoxic respiratory failure which is likely multifactorial, and includes a component of likely aspiration pneumonia, possible volume overload, and likely poor pulmonary mechanics secondary to severe abdominal distension. He also has nonobstructive ileus which is complicating the abdominal distension. Plan for neostigmine today. If successful, we can consider SBT and extubation. Continues to have multiple complex medical problems, high risk for decompensation. Plan by systems: Neurologic: Abdominal pain- persistent, slightly improved. Fentanyl, propofol for goal RASS -2 Tylenol as needed for pain or fever --continue dilaudid 1mg iv q4h prn for breakthrough pain. Respiratory: Acute hypoxic respiratory failure- persistent, stable. Aspiration pneumonia- left lower lobe- persistent. continue APRV 26/0, 4/0.9 (I:E 4.4:1). wean fio2 for goal spo2 > 90%. -- will consider SBT later today if ileus resolves. -- hob @ 30 degrees -- vent bundle -- nebs. Antibiotics described below Cardiovascular: Continue telemetry. --continues to appear euvolemic. Cr improving. Renal: Acute Kidney Injury- resolving. Continue Bull for strict I's and O's in this intubated patient -- Strict I/Os -- improving Cr. FEN/GI: Persistent nausea/vomiting Left upper quadrant abdominal mass Nonobstructive ileus Status post intra-abdominal drain placement 10/19 -- continue NPO -- continue increased bowel regimen: senna/colace, miralax, dulcolax suppository -- repeat CT abd/pelvis with PO contrast 10/21: significantly reduced size of abdominal mass with persistent colonic ileus. -- Dr. Jerome: gen surg following. -- continue zofran prn for nausea. -- daily bmp -- ICU electrolyte protocol. -- neostigmine today. repeat KUB. Heme/ID: Anemia secondary to acute blood loss Aspiration Pneumonia -- daily cbc -- does not meet transfusion triggers at this time -- continue Zosyn iv -- f/u cultures, currently NGTD. Endocrine: Hyperglycemia of critical illness -- SSI, medium scale, every 6 hours Prophylaxis: GI Prophylaxis Protonix 40 times IV every 24 hours DVT Prophylaxis -- SCDs lovenox Lines: Peripheral IVs Bull Dispo: Remain in the ICU. Dino Schaffer MD Oct 22, 2016 09:47
[2016-10-22] MEDS: SODIUM CHLORIDE 0.9% 10 ML VIAL IRRIGATION SCH ×2 (13:00→16:00)
--- NOTE | 2016-10-22 13:00 | RADRPT ---
EXAM DATE/TIME: 10/22/2016 11:55 [facility] COMPARISON: No previous studies available for comparison. INDICATIONS : Abdominal distention. MEDICAL HISTORY : Pancreatitis. SURGICAL HISTORY : None. ENCOUNTER: Subsequent ACUITY: 4 - 6 days PAIN SCORE: Non-responsive. LOCATION: Abdomen. FINDINGS: There is a section type NGT in the proximal stomach. Mildly distended air-filled loops of jejunum in the left upper quadrant. Otherwise, there is a general paucity of bowel gas. Soft tissues are within normal limits. No abnormal calcifications. Osseous structures are intact. CONCLUSION: 1. Mildly distended loops of proximal jejunum in the left upper quadrant consistent with adynamic ile us noted on CT exam. Mario Cha MD on October 22, 2016 at 12:56 Board Certified Radiologist. This report was verified electronically.
[2016-10-22] MEDS: fentaNYL DRIP 250 ML IV SCH (14:43)
[2016-10-23] VITALS (13 sets, daily range): BP systolic 121–161; BP diastolic 59–85; PULSE 100–112; RESP 21–28; TEMP 98.3–101.2; O2SAT 93–100
[2016-10-23] MEDS: PIPERACIL-TAZO 4.5 GM PREMIX 100 ML IV SCH ×4 (01:42→19:53)
[2016-10-23] MEDS: RESP: ALBUTEROL 2.5 MG/IPRATROPIUM 0.5 MG NEB (PRN) NEB ×3 (02:43→15:57)
[2016-10-23 04:28] LABS: HEMATOCRIT 26.5 % (39.0-51.0); MEAN CORPUSCULAR HEMOGLOBIN 26.7 PG (27.0-34.0); PLATELET COUNT 483 TH/MM3 (150-450); RED BLOOD COUNT 3.07 MIL/MM3 (4.50-5.90); RED CELL DISTRIBUTION WIDTH 17.8 % (11.6-17.2); WHITE BLOOD COUNT 43.8 TH/MM3 (4.0-11.0)
[2016-10-23 04:29] LABS: REVIEW FLAG FINAL
[2016-10-23 04:38] LABS: BICARBONATE 22.5 MEQ/L (21.0-32.0); POTASSIUM 3.4 MEQ/L (3.5-5.1)
[2016-10-23] MEDS: PANTOPRAZOLE SODIUM 40 MG VIAL IV PUSH SCH (05:51)
[2016-10-23] MEDS: METOCLOPRAMIDE HCL 10 MG/2 ML VIAL IV PUSH SCH ×3 (05:51→22:20)
[2016-10-23] MEDS: INSULIN NovoLIN REGULAR SUPPLEMENTAL SCALE SQ SCH ×4 (06:00→16:49)
--- NOTE | 2016-10-23 07:28 | HHI.CCPN ---
Subjective Remarks/Hospital Course Hospital Course: 56-year-old male without significant past medical history admitted with chest and abdomen pain. His pain is Fairly severe recently, but has been ongoing for 1 week. States is also been having some nausea without vomiting. Denies any weight loss. He is an active tobacco smoker. He previously drank Etoh heavily, but very little in last 6 mos. He denies any trauma to the left side of his abdomen, being in MVA or MCA recently. He admits some fevers over the last week. He was found to have left abdominal cystic mass however unclear if it's ruptured splenic fluid collection vs large pancreatic pseudocyst vs malignant. He also has bilateral basilar atelectasis on CT and potentially a small area of pneumonia on the left base with associated effusion. Per radiology and general surgery discussion a malignancy is high concern. The interventional radiology is considering omental biopsy and paracentesis. Subjective: 10/20: Worsening hypoxemia overnight, now on fio2 60% with pao2 63. severe abdominal distension is still present and visibly limits pulmonary excursion on physical exam. 10/21: ileus improving and multiple bowel movements yesterday and overnight. abdominal drain with minimal sanguinous output. despite this, patient remains significantly distended with tympanic abdomen. patient is awake and alert and following commands, denying any complaints. patient expresses that he feels better today than yesterday with less abdominal pain. I discussed the case with Dr. Jones and Dr. Jerome, and we feel that repeat imaging of the abdomen will allow us to see interval change in size of pancreatic cyst as well as degree of persistent colonic ileus despite significant BMs. 10/22: repeat CT abd/pelvis with evidence of ongoing ileus, size of mass has significantly improved. discussed care again with Dr. Jerome who agrees with neostigmine plan to assist with colonic decompression. 10/23: ileus improved yesterday with neostigmine. successfully extubated. tolerating some clear liquids. distension remains improved. no complaints this morning. Objective Vital Signs Date Time Temp Pulse Resp B/P Pulse Ox O2 Delivery O2 Flow Rate FiO2 10/23/16 06:00 100 10/23/16 04:00 101.2 25 146/69 98 10/22/16 22:00 Nasal Cannula 4.00 10/22/16 12:00 40 Intake and Output 10/22/16 10/22/16 10/23/16 08:00 16:00 00:00 Intake Total 405 ml 412 ml 100 ml Output Total 625 ml 750 ml 750 ml Balance -220 ml -338 ml -650 ml Result Diagram: 10/23/16 0337 10/23/16 0337 Other Results Microbiology Date/Time Procedure Status Source Growth 10/20/16 11:32 Gram Stain - Final Complete Sputum Endotracheal 10/20/16 11:32 Sputum Culture - Final Complete Sputum Endotracheal HEAVY GROWTH NORMAL RESPIRATORY [facility] Imaging Chest X-Ray 10/16/16 1329 Signed Impressions: Service Date/Time: October 13:57 - CONCLUSION: Left basilar opacification characteristic of pleural fluid accumulation and underlying lung consolidation or mass. Jude Lomeli MD Chest CT 10/16/16 0000 Signed Impressions: Service Date/Time: October 16:59 - CONCLUSION: 1. Huge complex cystic mass/collection within the left upper quadrant which occupies the expected region of the spleen and is incompletely evaluated on this examination. CT of the abdomen will be performed this same day and will allow complete evaluation of this lesion. 2. Bilbasilar patchiness (left worse than right) consistent with atelectasis and/or pneumonia. Clinical correlation is recommended. 3. Small left pleural effusion. 4. Ascites within the upper abdomen. 5. Degenerative changes throughout the thoracic spine. 6. Coronary artery calcifications. Mahin Malin MD Abdomen/Pelvis CT 10/16/16 0000 Signed Impressions: Service Date/Time: October 16:59 - CONCLUSION: 1. Large complex mass/collection within the left upper quadrant measuring 18.7 x 14.9 cm. Differential includes walled-off ruptured spleen with large hematoma, complex pseudocyst from the tail of the pancreas or possible cystic neoplasm. 2. Moderate amount of ascites within the abdomen and pelvis. 3. Calcifications within the head of the pancreas suggestive of chronic calcific pancreatitis. 4. Diffuse thickening of multiple loops of jejunum suggesting jejunitis. 5. Uncomplicated colonic diverticulosis. 6. There is mild ectasia of the infrarenal abdominal aorta. Mahin Malin MD Objective Remarks GENERAL: middle-aged male, lying in bed, no acute distress. SKIN: Warm and dry. HEENT: Normocephalic, atraumatic. pupils equal, round, reactive, conjugate. mucous membranes moist. NECK: trachea midline. JVD difficult to assess due to large neck circumference. CARDIOVASCULAR: normal rate, regular rhythm. sinus by tele. RESPIRATORY: breathing comfortably with equal chest rise and no accessory muscle use. GASTROINTESTINAL: Abdomen soft, non-tender, mildly distended. significantly improved from yesterday. MUSCULOSKELETAL: No cyanosis, or edema. EXTREMITIES: No clubbing cyanosis or edema Neuro: RASS 0. follows commands. no focal deficits. A/P Assessment and Plan Assessment: 56yM with pancreatic pseudocyst causing abdominal distension, respiratory failure which is now resolving, aspiration pneumonia (LLL). Ileus resolving. tolerating clear liquids. Clinically improving. talked with radiology yesterday after repeat CT abd/pelvis, and remaining collection is likely not amenable to percutaneous drainage. Plan by systems: Neurologic: Abdominal pain- improving. Fentanyl, propofol for goal RASS -2 Tylenol as needed for pain or fever --decrease dilaudid to 0.5mg iv q4h prn for breakthrough pain. -- add oxycodone prn. Respiratory: Acute hypoxic respiratory failure- improving. Aspiration pneumonia- left lower lobe- persistent. wean NC for goal spo2 > 90%. -- hob @ 30 degrees Antibiotics described below Cardiovascular: Continue telemetry. --continues to appear euvolemic. Cr improving. Renal: Acute Kidney Injury- resolving. Continue Bull for strict I's and O's in this intubated patient -- Strict I/Os -- improving Cr. FEN/GI: Persistent nausea/vomiting- improved. Left upper quadrant abdominal mass Nonobstructive ileus- resolving. Status post intra-abdominal drain placement 10/19 -- continue clear liquid diet. advance as tolerated. -- continue increased bowel regimen: senna/colace, miralax, dulcolax suppository -- repeat CT abd/pelvis with PO contrast 10/21: significantly reduced size of abdominal mass with persistent colonic ileus. -- Dr. Jerome: gen surg following. -- continue zofran prn for nausea. -- daily bmp -- ICU electrolyte protocol. Heme/ID: Anemia secondary to acute blood loss Aspiration Pneumonia -- daily cbc -- does not meet transfusion triggers at this time -- continue Zosyn iv, plan for full 7 day course (anticipated stop date 10/25) -- f/u cultures, currently NGTD. Endocrine: Hyperglycemia of critical illness -- SSI, medium scale, every 6 hours Prophylaxis: GI Prophylaxis change to PO protonix. DVT Prophylaxis -- SCDs lovenox Lines: Peripheral IVs Bull Dispo: could transition to floor later today if remains stable. Dino Schaffer MD Oct 23, 2016 07:28
[2016-10-23] MEDS: CHLORHEXIDINE 0.12% (ORAL KIT) 15 ML CUP MT SCH ×2 (08:00→20:06)
[2016-10-23] MEDS: SODIUM CHLORIDE 0.9% 10 ML VIAL IRRIGATION SCH ×2 (09:00→16:00)
[2016-10-23] MEDS: PANTOPRAZOLE SOD 40 MG DELAYED RELEASE TAB PO SCH (09:21)
[2016-10-23] MEDS: LACTULOSE SYRUP 20 GM/30 ML CUP PO SCH ×2 (09:21→20:06)
[2016-10-23] MEDS: POLYETHYLENE GLYCOL 17 GM PKG PO SCH ×2 (09:21→20:06)
[2016-10-23] MEDS: ENOXAPARIN SODIUM 40 MG/0.4 ML SYRINGE SQ SCH (09:22)
[2016-10-23] MEDS: BISACODYL 10 MG SUPP RECTAL SCH (09:22)
[2016-10-23] MEDS: POTASSIUM CHLOR 20 MEQ PREMIX 100 ML IV PRN (09:22)
[2016-10-23] MEDS: ONDANSETRON HCL 4 MG/2 ML VIAL IV PUSH PRN (17:40)
[2016-10-23] MEDS: HYDROmorphone HCL PF 1 MG/ML VIAL IV PUSH PRN (22:20)
[2016-10-24] VITALS (14 sets, daily range): BP systolic 126–151; BP diastolic 68–78; PULSE 94–106; RESP 20–29; TEMP 97.9–102.4; O2SAT 92–99
[2016-10-24] MEDS: PIPERACIL-TAZO 4.5 GM PREMIX 100 ML IV SCH ×4 (02:27→19:48)
[2016-10-24] MEDS: METOCLOPRAMIDE HCL 10 MG/2 ML VIAL IV PUSH SCH ×3 (05:40→22:07)
[2016-10-24] MEDS: INSULIN NovoLIN REGULAR SUPPLEMENTAL SCALE SQ SCH ×5 (06:00→22:16)
[2016-10-24 07:19] LABS: HEMATOCRIT 27.7 % (39.0-51.0); MEAN CELL VOLUME 83.5 FL (80.0-100.0); MEAN CORPUSCULAR HGB CONC 32.3 % (32.0-36.0); PLATELET COUNT 502 TH/MM3 (150-450); RED BLOOD COUNT 3.32 MIL/MM3 (4.50-5.90); RED CELL DISTRIBUTION WIDTH 18.5 % (11.6-17.2); WHITE BLOOD COUNT 30.8 TH/MM3 (4.0-11.0)
[2016-10-24 07:28] LABS: REVIEW FLAG FINAL
[2016-10-24 07:52] LABS: BICARBONATE 25.8 MEQ/L (21.0-32.0)
[2016-10-24] MEDS: CHLORHEXIDINE 0.12% (ORAL KIT) 15 ML CUP MT SCH ×2 (08:00→20:00)
[2016-10-24] MEDS: POLYETHYLENE GLYCOL 17 GM PKG PO SCH (08:40)
[2016-10-24] MEDS: SODIUM CHLORIDE 0.9% 10 ML VIAL IRRIGATION SCH ×2 (08:40→15:35)
[2016-10-24] MEDS: LACTULOSE SYRUP 20 GM/30 ML CUP PO SCH (08:40)
[2016-10-24] MEDS: ENOXAPARIN SODIUM 40 MG/0.4 ML SYRINGE SQ SCH (08:40)
[2016-10-24] MEDS: BISACODYL 10 MG SUPP RECTAL SCH (08:40)
[2016-10-24] MEDS: PANTOPRAZOLE SOD 40 MG DELAYED RELEASE TAB PO SCH (08:40)
[2016-10-24] MEDS ORDERED: POTASSIUM CHLOR 20 MEQ PREMIX 100 ML ONE (09:44)
[2016-10-24] MEDS ORDERED: POTASSIUM CHLOR 20 MEQ PREMIX 100 ML IV ONE (10:00)
[2016-10-24] MEDS ORDERED: POTASSIUM CHLORIDE 25 MEQ EFFERVESCENT TAB PO ONE (10:00)
--- NOTE | 2016-10-24 11:20 | HHI.PR ---
Subjective Remarks Pt is a 56 y/o M with h/o heavy etoh use. Pt was admitted to [place] on 10/16/16 with c/o severe abd pain, n/v. Pt developed ileus which improved with neostigmine - Pt also developed respiratory failure. Pt was intubated (10/19 - 10/23/16) Today pt denies pain Pt is tolerating PO intake. Objective Vitals Vital Signs Date Time Temp Pulse Resp B/P Pulse Ox O2 Delivery O2 Flow Rate FiO2 10/24/16 08:00 102 10/24/16 08:00 98.6 102 24 127/71 94 10/24/16 07:42 94 Nasal Cannula 5.00 10/24/16 07:00 93 Nasal Cannula 6.00 10/24/16 06:00 95 10/24/16 04:00 102 10/24/16 04:00 98.8 102 29 151/76 98 10/24/16 02:00 94 10/24/16 00:00 106 10/24/16 00:00 102.4 106 26 126/68 93 10/24/16 00:00 106 10/23/16 22:00 108 10/23/16 20:00 100.7 110 21 161/79 97 10/23/16 20:00 112 10/23/16 19:00 91 Nasal Cannula 6.00 10/23/16 18:00 106 10/23/16 16:00 107 10/23/16 16:00 98.3 101 26 142/74 99 10/23/16 14:00 109 10/23/16 12:00 112 10/23/16 12:00 98.6 112 26 138/70 93 10/23/16 10/23/16 10/24/16 15:00 23:00 07:00 Intake Total 1220 ml 200 ml 700 ml Output Total 860 ml 150 ml 0 ml Balance 360 ml 50 ml 700 ml Intake Oral 720 ml 600 ml IV Total 500 ml 200 ml 100 ml Output Urine Total 400 ml Gastric Drainage Total 400 ml Drainage Total 60 ml 150 ml 0 ml # Voids 2 3 6 # Bowel Movements 2 1 6 Result Diagram: 10/24/16 0648 10/24/16 0648 Imaging Last Impressions Abdomen X-Ray 10/22/16 0000 Signed Impressions: Service Date/Time: Saturday, October 22, 2016 11:55 - CONCLUSION: 1. Mildly distended loops of proximal jejunum in the left upper quadrant consistent with adynamic ileus noted on CT exam. Mario Cha MD Abdomen/Pelvis CT 10/21/16 1622 Signed Impressions: Service Date/Time: Friday, October 21, 2016 23:19 - CONCLUSION: 1. Distended jejunum and with a fairly gradual transition to decompressed ileum. Air and stool seen in the colon. I believe this likely represents proximal small bowel ileus rather than obstruction. Abdominal x-ray surveillance recommended. 2. Stomach is decompressed with a nasogastric tube. 3. Interim drainage of the left upper quadrant/perisplenic fluid collection. The fluid collection measures smaller in the interim. 4. Trace ascites and moderate anasarca. 5. Left greater than right basilar consolidation again noted. Josué Kaur MD Chest X-Ray 10/21/16 0000 Signed Impressions: Service Date/Time: Friday, October 21, 2016 07:38 - CONCLUSION: 1. Nasogastric tube with tip in distal esophagus. It should be advanced at least 10 cm. 2. Dense consolidation left lower lobe. 3. Small caliber left-sided chest tube without pneumothorax. 4. Minimal patchy densities right lower lobe with significant improvement when compared to previous study. Abdelrahman Milton MD Needle Aspiration CT 10/19/16 0000 Signed Impressions: Service Date/Time: Wednesday, October 19, 2016 12:35 - CONCLUSION: Uncomplicated drainage of a large fluid collection in the left upper quadrant. This appeared to predominantly represent old hemorrhage. Binh Jones MD Paracentesis 10/17/16 0000 Signed Impressions: Service Date/Time: Monday, October 17, 2016 14:05 - CONCLUSION: Uncomplicated CT Guided paracentesis revealing hemorrhagic ascites. Fernando Jones MD FACR Abdomen Biopsy CT 10/17/16 0000 Signed Impressions: Service Date/Time: Monday, October 17, 2016 11:32 - CONCLUSION: Uncomplicated CT guided biopsy possible peritoneal metastasis. Fernando Jones MD FACR Chest CT 10/16/16 0000 Signed Impressions: Service Date/Time: October 16:59 - CONCLUSION: 1. Huge complex cystic mass/collection within the left upper quadrant which occupies the expected region of the spleen and is incompletely evaluated on this examination. CT of the abdomen will be performed this same day and will allow complete evaluation of this lesion. 2. Bilbasilar patchiness (left worse than right) consistent with atelectasis and/or pneumonia. Clinical correlation is recommended. 3. Small left pleural effusion. 4. Ascites within the upper abdomen. 5. Degenerative changes throughout the thoracic spine. 6. Coronary artery calcifications. Mahin Malin MD A/P Problem List: (1) Mass of abdomen Status: Acute Plan: - comgmt with General Surgery - Pt is 56 yo with pmh of etoh abuse/pancreatitis - Pt admitted with c/o with left abdomen pain/fullness - CT abd/pelvis (10/21/16) --> LUQ perisplenic fluid collection, measuring smaller following drainage with IR - Abdominal asipration of 1.5 Liters on (10/19/16) - Case d/w Dr Darryl DAVIS (10/24/16). 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 In turn this lead to an outflow infarct of the spleen which eroded into the pseudocyst leading to a large abdominal mass/process. - pt had omental bx 10/17/16 which was non-diagnostic - abdominal aspirate cytology on 10/20/16 --> histiocytes and blood cells, but NO malignancy identified - Pt noted to have a continued intraabdominal fluid collection. Small since drainage and subsequent drainage catheter by IR - Still with sizeable intraabdominal fluid collection, but IR recommends against repeat drainage at this time - General Surgery advises repeat CT abd to reassess for possible future repeat drainage. - will schedule repeat CT abd/pelvis for /Thursday - pt now tolerating diet - supportive care - continue PT - lovenox for DVT prophylaxis (2) Ileus Status: Acute Plan: - improved - pt received neostigmine while in the ICU - pt tolerating PO intake - reglan, protonix (3) LLL pneumonia Status: Acute Plan: - zosyn, stop 10/25 - sputum studies were non-diagnostic - repeat CXR in AM 10/25 (4) Alcoholism Status: Chronic Plan: - supportive care - pt would benefit from outpt treatment following hospitalization Yfn Giron DO Oct 24, 2016 11:20 Yfn Giron DO Oct 24, 2016 11:20
--- NOTE | 2016-10-24 11:27 | HHI.PR ---
Subjective Subjective Notes The patient is somewhat hoarse, but he has no complaints. He is having multiple bowel movements. He denies any abdominal pain. Objective Vitals/I&O Vital Signs Date Time Temp Pulse Resp B/P Pulse Ox O2 Delivery O2 Flow Rate FiO2 10/24/16 10:15 98.9 100 20 133/78 92 10/24/16 07:42 Nasal Cannula 5.00 10/22/16 12:00 40 Labs Laboratory Tests Test 10/24/16 06:48 White Blood Count 30.8 Red Blood Count 3.32 Hemoglobin 9.0 Hematocrit 27.7 Mean Corpuscular Volume 83.5 Mean Corpuscular Hemoglobin 27.0 Mean Corpuscular Hemoglobin 32.3 Concent Red Cell Distribution Width 18.5 Platelet Count 502 Mean Platelet Volume 7.7 Sodium Level 142 Potassium Level 3.0 Chloride Level 106 Carbon Dioxide Level 25.8 Anion Gap 10 Blood Urea Nitrogen 11 Creatinine 0.80 Estimat Glomerular Filtration 120 Rate Random Glucose 104 Calcium Level 8.7 Date/Time Procedure Status Source Growth 10/20/16 11:32 Gram Stain - Final Complete Sputum Endotracheal 10/20/16 11:32 Sputum Culture - Final Complete Sputum Endotracheal HEAVY GROWTH NORMAL RESPIRATORY [facility] 10/19/16 13:00 Fungal Smear - Final Resulted Fluid Peritoneal Fluid NO FUNGAL ELEMENTS SEEN. 10/19/16 13:00 Fungal Culture Resulted Fluid Peritoneal Fluid Pending 10/19/16 13:00 Cancelled Wound Lung 10/19/16 13:00 Cancelled Wound Lung 10/19/16 13:00 Cancelled Wound Lung Cardiovascular: Regular Lungs: Clear Abdomen: Non-tender Narrative Exam Breath sounds are diminished at the bases. His abdomen is still very distended but very tympanitic as well. He he has no tenderness, guarding, or rebound. A/P Assessment and Plan Impression: Status post drainage of a large pancreatic pseudocyst with a 10 cm remnant of either blood clot or thickened fluid. The drain is gradually diminishing. Overall he is showing significant improvement with increasing bowel function. He has significant abdominal wall and intra-abdominal edema secondary to his hypoalbuminemia. Plan: At this point the patient does not need surgical intervention and surgery will continue to follow peripherally during his hospital course. We anticipate a repeat CT scan being obtained sometime next week, as per my discussion with Dr. Giron. Lucas Jerome MD Oct 24, 2016 11:27
[2016-10-24] MEDS: RESP: ALBUTEROL 2.5 MG/IPRATROPIUM 0.5 MG NEB (PRN) NEB (16:22)
[2016-10-25] VITALS (11 sets, daily range): BP systolic 117–127; BP diastolic 64–70; PULSE 89–96; RESP 18–24; TEMP 96.2–98.1; O2SAT 93–96
[2016-10-25] MEDS: PIPERACIL-TAZO 4.5 GM PREMIX 100 ML IV SCH ×4 (01:40→20:21)
[2016-10-25] MEDS: METOCLOPRAMIDE HCL 10 MG/2 ML VIAL IV PUSH SCH ×3 (05:23→20:22)
[2016-10-25] MEDS: INSULIN NovoLIN REGULAR SUPPLEMENTAL SCALE SQ SCH ×3 (05:24→18:00)
[2016-10-25] MEDS: RESP: ALBUTEROL 2.5 MG/IPRATROPIUM 0.5 MG NEB (PRN) NEB (05:36)
[2016-10-25 07:21] LABS: AUTOMATED NEUTROPHIL # 18.4 TH/MM3 (1.8-7.7); BASOPHIL # 0.1 TH/MM3 (0-0.2); BASOPHIL % 0.5 % (0.0-2.0); EOSINOPHIL % 4.4 % (0.0-4.0); HEMATOCRIT 27.2 % (39.0-51.0); HEMO FLAGS DIFF FINAL; LYMPH % 10.3 % (9.0-44.0); LYMPHOCYTE # 2.4 TH/MM3 (1.0-4.8); MEAN CELL VOLUME 83.4 FL (80.0-100.0); MEAN CORPUSCULAR HEMOGLOBIN 26.8 PG (27.0-34.0); MEAN CORPUSCULAR HGB CONC 32.1 % (32.0-36.0); MONO % 7.2 % (0.0-8.0); NEUT % 77.6 % (16.0-70.0); PLATELET COUNT 499 TH/MM3 (150-450); RED BLOOD COUNT 3.26 MIL/MM3 (4.50-5.90); RED CELL DISTRIBUTION WIDTH 18.5 % (11.6-17.2); WHITE BLOOD COUNT 23.7 TH/MM3 (4.0-11.0)
[2016-10-25 07:51] LABS: BICARBONATE 24.6 MEQ/L (21.0-32.0); MAGNESIUM 1.7 MG/DL (1.5-2.5)
[2016-10-25 07:55] LABS: POTASSIUM 2.8 MEQ/L (3.5-5.1)
[2016-10-25] MEDS: CHLORHEXIDINE 0.12% (ORAL KIT) 15 ML CUP MT SCH ×2 (08:00→20:00)
--- NOTE | 2016-10-25 08:26 | RADRPT ---
EXAM DATE/TIME: 10/25/2016 07:56 [facility] COMPARISON: CHEST SINGLE AP, October 21, 2016, 7:38. CHEST PA & LAT, January 29, 2014, 17:06. INDICATIONS : Shortness of breath, cough, chest congestion MEDICAL HISTORY : Pancreatitis. SURGICAL HISTORY : None. ENCOUNTER: Subsequent ACUITY: 1 week PAIN SCORE: 0/10 LOCATION: Bilateral chest FINDINGS: There is diffuse bilateral interstitial and air space pulmonary infiltrates. The previously noted end otracheal tube and NG tube have been removed. There is no evidence of pneumothorax. The heart size is stable. The bony structures are stable. CONCLUSION: Diffuse bilateral interstitial and air space pulmonary infiltrates. Jaycob Martin MD on October 25, 2016 at 8:22 Board Certified Radiologist. This report was verified electronically.
[2016-10-25] MEDS: SODIUM CHLORIDE 0.9% 10 ML VIAL IRRIGATION SCH ×2 (09:00→16:00)
[2016-10-25] MEDS: PANTOPRAZOLE SOD 40 MG DELAYED RELEASE TAB PO SCH (09:19)
[2016-10-25] MEDS: POTASSIUM CHLORIDE 20 MEQ CONTROLLED RELEASE TAB PO SCH ×3 (09:19→20:20)
[2016-10-25] MEDS: ENOXAPARIN SODIUM 40 MG/0.4 ML SYRINGE SQ SCH (09:20)
--- NOTE | 2016-10-25 10:54 | HHI.PR ---
Subjective Remarks No new complaints. Pt is tolerating PO intake. No n/v/d. Objective Vitals Vital Signs Date Time Temp Pulse Resp B/P Pulse Ox O2 Delivery O2 Flow Rate FiO2 10/25/16 08:00 96.6 91 24 121/70 96 10/25/16 05:38 96 Nasal Cannula 5.00 10/25/16 04:00 97.4 96 21 121/69 94 10/25/16 02:36 96 10/25/16 00:00 98.1 96 20 127/64 95 10/24/16 21:00 103 10/24/16 21:00 93 Nasal Cannula 5.00 10/24/16 20:00 99.9 99 21 132/71 93 10/24/16 16:45 97.9 99 26 134/78 93 10/24/16 14:59 99 Nasal Cannula 3.00 10/24/16 14:39 98 Nasal Cannula 3.00 10/24/16 12:00 98.6 100 20 127/71 97 10/24/16 12:00 95 Nasal Cannula 5.00 10/24/16 11:14 103 10/24/16 10/24/16 10/25/16 15:00 23:00 07:00 Intake Total 820 ml 480 ml 480 ml Output Total 90 ml 470 ml Balance 820 ml 390 ml 10 ml Intake Oral 720 ml 480 ml 480 ml IV Total 100 ml Drainage Total 90 ml 470 ml # Voids 1 3 2 # Bowel Movements 1 3 Result Diagram: 10/25/16 0554 10/25/16 0554 Imaging Last Impressions Chest X-Ray 10/25/16 0800 Signed Impressions: Service Date/Time: Tuesday, October 25, 2016 07:56 - CONCLUSION: Diffuse bilateral interstitial and air space pulmonary infiltrates. Jaycob Martin MD Abdomen X-Ray 10/22/16 0000 Signed Impressions: Service Date/Time: Saturday, October 22, 2016 11:55 - CONCLUSION: 1. Mildly distended loops of proximal jejunum in the left upper quadrant consistent with adynamic ileus noted on CT exam. Mario Cha MD Abdomen/Pelvis CT 10/21/16 1622 Signed Impressions: Service Date/Time: Friday, October 21, 2016 23:19 - CONCLUSION: 1. Distended jejunum and with a fairly gradual transition to decompressed ileum. Air and stool seen in the colon. I believe this likely represents proximal small bowel ileus rather than obstruction. Abdominal x-ray surveillance recommended. 2. Stomach is decompressed with a nasogastric tube. 3. Interim drainage of the left upper quadrant/perisplenic fluid collection. The fluid collection measures smaller in the interim. 4. Trace ascites and moderate anasarca. 5. Left greater than right basilar consolidation again noted. Josué Kaur MD Needle Aspiration CT 10/19/16 0000 Signed Impressions: Service Date/Time: Wednesday, October 19, 2016 12:35 - CONCLUSION: Uncomplicated drainage of a large fluid collection in the left upper quadrant. This appeared to predominantly represent old hemorrhage. Binh Jones MD Paracentesis 10/17/16 0000 Signed Impressions: Service Date/Time: Monday, October 17, 2016 14:05 - CONCLUSION: Uncomplicated CT Guided paracentesis revealing hemorrhagic ascites. Fernando Jones MD FACR Abdomen Biopsy CT 10/17/16 0000 Signed Impressions: Service Date/Time: Monday, October 17, 2016 11:32 - CONCLUSION: Uncomplicated CT guided biopsy possible peritoneal metastasis. Fernando Jones MD FACR Chest CT 10/16/16 0000 Signed Impressions: Service Date/Time: October 16:59 - CONCLUSION: 1. Huge complex cystic mass/collection within the left upper quadrant which occupies the expected region of the spleen and is incompletely evaluated on this examination. CT of the abdomen will be performed this same day and will allow complete evaluation of this lesion. 2. Bilbasilar patchiness (left worse than right) consistent with atelectasis and/or pneumonia. Clinical correlation is recommended. 3. Small left pleural effusion. 4. Ascites within the upper abdomen. 5. Degenerative changes throughout the thoracic spine. 6. Coronary artery calcifications. Mahin Malin MD Objective Remarks GENERAL: This is a well-nourished, well-developed patient, in no apparent distress. CARDIOVASCULAR: Regular rate and rhythm without murmurs, gallops, or rubs. RESPIRATORY: Clear to auscultation. Breath sounds equal bilaterally. No wheezes , rales, or rhonchi. GASTROINTESTINAL: Abdomen soft, non-tender, nondistended. Normal active bowel sounds MUSCULOSKELETAL: Extremities without clubbing, cyanosis, or edema. NEURO: Alert & Oriented x4 to person, place, time, situation. Moves all ext x4 A/P Problem List: (1) Mass of abdomen Status: Acute Plan: - comgmt with General Surgery - Pt is 56 yo with pmh of etoh abuse/pancreatitis - Pt admitted with c/o with left abdomen pain/fullness - CT abd/pelvis (10/21/16) --> LUQ perisplenic fluid collection, measuring smaller following drainage with IR - Abdominal asipration of 1.5 Liters on (10/19/16) - Case d/w SUSAN, Dr Andrews (10/24/16). 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 In turn this lead to an outflow infarct of the spleen which eroded into the pseudocyst leading to a large abdominal mass/process. - pt had omental bx 10/17/16 which was non-diagnostic - abdominal aspirate cytology on 10/20/16 --> histiocytes and blood cells, but NO malignancy identified - Pt noted to have a continued intraabdominal fluid collection. Small since drainage and subsequent drainage catheter by IR - Still with sizeable intraabdominal fluid collection, but IR recommends against repeat drainage at this time - General Surgery advises repeat CT abd to reassess for possible future repeat drainage. - will schedule repeat CT abd/pelvis for /Thursday - pt now tolerating diet - supportive care - continue PT - lovenox for DVT prophylaxis 10/25/16 - Pt interviewed and examined - NO new complaints - continue current treatment plan as outlined above - repeat CBC, BMP, Mag in AM (2) Ileus Status: Acute Plan: - improved - pt received neostigmine while in the ICU - pt tolerating PO intake - reglan, protonix (3) LLL pneumonia Status: Acute Plan: - zosyn, stop 10/27 - sputum studies were non-diagnostic - CXR (10/25/16) - diffuse b/l interstitial infiltrates - likely volume overload - lasix 80mg IV, now - then lasix 20mg IV BID - repeat BMP this afternoon and in AM (4) Alcoholism Status: Chronic Plan: - supportive care - pt would benefit from outpt treatment following hospitalization Yfn Giron DO Oct 25, 2016 10:54
[2016-10-25] MEDS ORDERED: FUROSEMIDE 100 MG/10 ML VIAL IV PUSH ONE (11:00)
[2016-10-25 12:39] LABS: BICARBONATE 26.4 MEQ/L (21.0-32.0)
[2016-10-25 12:45] LABS: POTASSIUM 2.8 MEQ/L (3.5-5.1)
[2016-10-25] MEDS: FUROSEMIDE 20 MG TAB PO SCH (19:39)
[2016-10-26] VITALS (9 sets, daily range): BP systolic 115–134; BP diastolic 60–79; PULSE 85–95; RESP 18–22; TEMP 97–99.5; O2SAT 94–99
[2016-10-26] MEDS: METOCLOPRAMIDE HCL 10 MG/2 ML VIAL IV PUSH SCH ×3 (05:46→22:00)
[2016-10-26] MEDS: INSULIN NovoLIN REGULAR SUPPLEMENTAL SCALE SQ SCH ×4 (05:46→18:00)
[2016-10-26 06:36] LABS: AUTOMATED NEUTROPHIL # 13.9 TH/MM3 (1.8-7.7); BASOPHIL # 0.1 TH/MM3 (0-0.2); BASOPHIL % 0.5 % (0.0-2.0); EOSINOPHIL % 5.5 % (0.0-4.0); HEMATOCRIT 25.8 % (39.0-51.0); HEMO FLAGS DIFF FINAL; LYMPH % 11.5 % (9.0-44.0); LYMPHOCYTE # 2.2 TH/MM3 (1.0-4.8); MEAN CELL VOLUME 82.6 FL (80.0-100.0); MEAN CORPUSCULAR HEMOGLOBIN 26.8 PG (27.0-34.0); MEAN CORPUSCULAR HGB CONC 32.5 % (32.0-36.0); MONO % 8.8 % (0.0-8.0); NEUT % 73.7 % (16.0-70.0); PLATELET COUNT 435 TH/MM3 (150-450); RED BLOOD COUNT 3.13 MIL/MM3 (4.50-5.90); RED CELL DISTRIBUTION WIDTH 18.3 % (11.6-17.2); WHITE BLOOD COUNT 18.9 TH/MM3 (4.0-11.0)
[2016-10-26 06:57] LABS: BICARBONATE 24.8 MEQ/L (21.0-32.0); MAGNESIUM 1.6 MG/DL (1.5-2.5); POTASSIUM 3.2 MEQ/L (3.5-5.1)
[2016-10-26] MEDS: CHLORHEXIDINE 0.12% (ORAL KIT) 15 ML CUP MT SCH ×2 (08:00→19:13)
[2016-10-26] MEDS: SODIUM CHLORIDE 0.9% 10 ML VIAL IRRIGATION SCH ×2 (09:00→16:00)
--- NOTE | 2016-10-26 09:39 | RADRPT ---
EXAM DATE/TIME: 10/26/2016 09:12 [facility] COMPARISON: CHEST PA & LAT, October 25, 2016, 7:56. INDICATIONS : Shortness of breath. MEDICAL HISTORY : Pancreatitis. SURGICAL HISTORY : None. ENCOUNTER: Initial ACUITY: 1 week PAIN SCORE: 2/10 LOCATION: Bilateral chest FINDINGS: There has been no significant changes in the bilateral pulmonary infiltrates compared to the prior ex am. The heart size is mildly enlarged but stable. There is no pneumothorax. The bony structures are s table. CONCLUSION: No significant interval change in the bilateral pulmonary infiltrates. Jaycob Martin MD on October 26, 2016 at 9:37 Board Certified Radiologist. This report was verified electronically.
[2016-10-26] MEDS: POTASSIUM CHLORIDE 20 MEQ CONTROLLED RELEASE TAB PO SCH ×4 (09:44→19:46)
[2016-10-26] MEDS: ENOXAPARIN SODIUM 40 MG/0.4 ML SYRINGE SQ SCH ×2 (09:44→10:27)
[2016-10-26] MEDS: PANTOPRAZOLE SOD 40 MG DELAYED RELEASE TAB PO SCH (09:44)
[2016-10-26] MEDS: FUROSEMIDE 20 MG TAB PO SCH ×2 (09:44→18:18)
--- NOTE | 2016-10-26 10:10 | HHI.PR ---
Subjective Remarks continues to c/o hoarse voice. Pt had 3 episodes of loose stool overnight. Pt denies abdominal pain. Pt is tolerating PO intake without n/v. Per nursing pt has NOT had a stool today, since the start of AM nursing shift. Objective Vitals Vital Signs Date Time Temp Pulse Resp B/P Pulse Ox O2 Delivery O2 Flow Rate FiO2 10/26/16 08:00 97.0 85 18 131/79 95 10/26/16 04:00 98.5 90 22 120/68 97 10/26/16 00:00 99.5 95 22 115/60 94 10/25/16 20:30 93 Nasal Cannula 4.00 10/25/16 20:23 93 Nasal Cannula 4.00 10/25/16 20:07 91 10/25/16 20:00 97.8 91 21 118/66 95 10/25/16 16:00 96.4 93 18 117/67 95 10/25/16 12:00 96.2 89 18 119/65 96 10/25/16 10/25/16 10/26/16 14:59 22:59 06:59 Intake Total 960 ml 480 ml Output Total 325 ml 1793 ml 275 ml Balance -325 ml -833 ml 205 ml Intake Oral 960 ml 480 ml Output Urine Total 325 ml 1725 ml 150 ml Drainage Total 68 ml 125 ml # Voids 1 3 2 # Bowel Movements 1 5 2 Result Diagram: 10/26/16 0530 10/26/16 0530 Imaging Last Impressions Chest X-Ray 10/25/16 0800 Signed Impressions: Service Date/Time: Tuesday, October 25, 2016 07:56 - CONCLUSION: Diffuse bilateral interstitial and air space pulmonary infiltrates. Jaycob Martin MD Abdomen X-Ray 10/22/16 0000 Signed Impressions: Service Date/Time: Saturday, October 22, 2016 11:55 - CONCLUSION: 1. Mildly distended loops of proximal jejunum in the left upper quadrant consistent with adynamic ileus noted on CT exam. Mario Cha MD Abdomen/Pelvis CT 10/21/16 1622 Signed Impressions: Service Date/Time: Friday, October 21, 2016 23:19 - CONCLUSION: 1. Distended jejunum and with a fairly gradual transition to decompressed ileum. Air and stool seen in the colon. I believe this likely represents proximal small bowel ileus rather than obstruction. Abdominal x-ray surveillance recommended. 2. Stomach is decompressed with a nasogastric tube. 3. Interim drainage of the left upper quadrant/perisplenic fluid collection. The fluid collection measures smaller in the interim. 4. Trace ascites and moderate anasarca. 5. Left greater than right basilar consolidation again noted. Josué Kaur MD Needle Aspiration CT 10/19/16 0000 Signed Impressions: Service Date/Time: Wednesday, October 19, 2016 12:35 - CONCLUSION: Uncomplicated drainage of a large fluid collection in the left upper quadrant. This appeared to predominantly represent old hemorrhage. Binh Jones MD Paracentesis 10/17/16 0000 Signed Impressions: Service Date/Time: Monday, October 17, 2016 14:05 - CONCLUSION: Uncomplicated CT Guided paracentesis revealing hemorrhagic ascites. Fernando Jones MD FACR Abdomen Biopsy CT 10/17/16 0000 Signed Impressions: Service Date/Time: Monday, October 17, 2016 11:32 - CONCLUSION: Uncomplicated CT guided biopsy possible peritoneal metastasis. Fernando Jones MD FACR Chest CT 10/16/16 0000 Signed Impressions: Service Date/Time: October 16:59 - CONCLUSION: 1. Huge complex cystic mass/collection within the left upper quadrant which occupies the expected region of the spleen and is incompletely evaluated on this examination. CT of the abdomen will be performed this same day and will allow complete evaluation of this lesion. 2. Bilbasilar patchiness (left worse than right) consistent with atelectasis and/or pneumonia. Clinical correlation is recommended. 3. Small left pleural effusion. 4. Ascites within the upper abdomen. 5. Degenerative changes throughout the thoracic spine. 6. Coronary artery calcifications. Mahin Malin MD Objective Remarks GENERAL: This is a well-nourished, well-developed patient, in no apparent distress. CARDIOVASCULAR: Regular rate and rhythm without murmurs, gallops, or rubs. RESPIRATORY: Clear to auscultation. Breath sounds equal bilaterally. No wheezes , rales, or rhonchi. GASTROINTESTINAL: Abdomen soft, non-tender, nondistended. Normal active bowel sounds MUSCULOSKELETAL: Extremities without clubbing, cyanosis, or edema. NEURO: Alert & Oriented x4 to person, place, time, situation. Moves all ext x4 A/P Problem List: (1) LLL pneumonia Status: Acute Plan: - zosyn (10/19 - 10/25/16) - sputum C&S (10/20/16) --> heavy growth of normal respiratory mehul - CXR (10/26/16) - diffuse b/l interstitial infiltrates, some mild improvement from 10/25 CXR - likely volume overload - lasix 80mg IV ) - lasix 20mg IV BID - repeat BMP in AM - BNP today and in AM - CXR in AM (2) Mass of abdomen Status: Acute Plan: - comgmt with General Surgery - Pt is 56 yo with pmh of etoh abuse/pancreatitis - Pt admitted with c/o with left abdomen pain/fullness - CT abd/pelvis (10/21/16) --> LUQ perisplenic fluid collection, measuring smaller following drainage with IR - Abdominal asipration of 1.5 Liters on (10/19/16) - Case d/w SUSAN, Dr Andrews (10/24/16). 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 In turn this lead to an outflow infarct of the spleen which eroded into the pseudocyst leading to a large abdominal mass/process. - pt had omental bx 10/17/16 which was non-diagnostic - abdominal aspirate cytology on 10/20/16 --> histiocytes and blood cells, but NO malignancy identified - Pt noted to have a continued intraabdominal fluid collection. Small since drainage and subsequent drainage catheter by IR - Still with sizeable intraabdominal fluid collection, but IR recommends against repeat drainage at this time - General Surgery advises repeat CT abd to reassess for possible future repeat drainage. - will schedule repeat CT abd/pelvis for /Thursday - pt now tolerating diet - supportive care - continue PT - lovenox for DVT prophylaxis 10/26/16 - 125ml sanguinous drainage from abdominal drain overnight - NO fever - leukocytosis continues to slowly improve - Pt is tolerating PO intake. - NO new complaints - continue current treatment plan as outlined above - repeat CBC, BMP, Mag in AM (3) Ileus Status: Acute Plan: - improved - pt received neostigmine while in the ICU - pt tolerating PO intake - reglan, protonix (4) Diarrhea Status: Acute Plan: - Pt had 3 episodes of loose stools overnight - obtain C.Dif PCR - obtain stool studies - NO flagyl yet (5) Alcoholism Status: Chronic Plan: - supportive care - pt would benefit from outpt treatment following hospitalization Yfn Giron DO Oct 26, 2016 10:10
[2016-10-26] MEDS ORDERED: FUROSEMIDE 40 MG/4 ML VIAL IV PUSH ONE (10:45)
[2016-10-26 14:45] LABS: C. DIFF EPI 027 PRESUMPTIVE NEGATIVE (NEGATIVE); C. DIFF TOXIN PCR NEGATIVE (NEGATIVE)
[2016-10-27] VITALS (9 sets, daily range): BP systolic 118–131; BP diastolic 65–79; PULSE 86–93; RESP 17–20; TEMP 96.8–98.9; O2SAT 95–98
[2016-10-27] MEDS: METOCLOPRAMIDE HCL 10 MG/2 ML VIAL IV PUSH SCH ×3 (04:43→22:14)
[2016-10-27] MEDS: INSULIN NovoLIN REGULAR SUPPLEMENTAL SCALE SQ SCH ×4 (04:44→18:12)
[2016-10-27 05:20] LABS: AUTOMATED NEUTROPHIL # 12.4 TH/MM3 (1.8-7.7); BASOPHIL # 0.1 TH/MM3 (0-0.2); BASOPHIL % 0.7 % (0.0-2.0); EOSINOPHIL # 0.7 TH/MM3 (0-0.4); HEMATOCRIT 26.9 % (39.0-51.0); HEMO FLAGS DIFF FINAL; LYMPH % 15.2 % (9.0-44.0); LYMPHOCYTE # 2.7 TH/MM3 (1.0-4.8); MEAN CELL VOLUME 82.3 FL (80.0-100.0); MEAN CORPUSCULAR HEMOGLOBIN 26.4 PG (27.0-34.0); MEAN CORPUSCULAR HGB CONC 32.1 % (32.0-36.0); MONO % 9.6 % (0.0-8.0); NEUT % 70.5 % (16.0-70.0); PLATELET COUNT 461 TH/MM3 (150-450); RED BLOOD COUNT 3.27 MIL/MM3 (4.50-5.90); RED CELL DISTRIBUTION WIDTH 18.8 % (11.6-17.2); WHITE BLOOD COUNT 17.6 TH/MM3 (4.0-11.0)
[2016-10-27 05:39] LABS: BICARBONATE 28.8 MEQ/L (21.0-32.0); MAGNESIUM 1.5 MG/DL (1.5-2.5); POTASSIUM 3.3 MEQ/L (3.5-5.1)
[2016-10-27] MEDS ORDERED: POTASSIUM CHLORIDE 20 MEQ CONTROLLED RELEASE TAB PO ONE (07:45)
[2016-10-27] MEDS: CHLORHEXIDINE 0.12% (ORAL KIT) 15 ML CUP MT SCH ×2 (08:00→20:00)
--- NOTE | 2016-10-27 08:26 | HHI.PR ---
Subjective Remarks out of bed to chair "diarrhea less" no complaints Objective Vitals heart reg lung course bs abd drain/bs ext anasarca Vital Signs Date Time Temp Pulse Resp B/P Pulse Ox O2 Delivery O2 Flow Rate FiO2 10/27/16 07:35 93 10/27/16 04:00 97.2 86 19 118/71 96 10/27/16 00:00 98.9 86 19 124/72 95 10/26/16 20:20 97 Nasal Cannula 4.00 10/26/16 20:02 88 10/26/16 20:00 97.9 90 18 131/71 99 10/26/16 16:00 98.4 90 18 129/77 95 10/26/16 12:25 97 Nasal Cannula 3.00 10/26/16 12:00 97.6 88 18 134/74 94 10/26/16 09:42 Nasal Cannula 4.00 Humidified 10/26/16 10/26/16 10/27/16 15:00 23:00 07:00 Intake Total 840 ml 480 ml Output Total 1420 ml 400 ml 110 ml Balance -580 ml 80 ml -110 ml Intake Oral 840 ml 480 ml Output Urine Total 1400 ml 400 ml Drainage Total 20 ml 110 ml # Voids 3 1 # Bowel Movements 1 2 2 Result Diagram: 10/27/16 0503 10/27/16 0503 Imaging Last Impressions Chest X-Ray 10/25/16 0800 Signed Impressions: Service Date/Time: Tuesday, October 25, 2016 07:56 - CONCLUSION: Diffuse bilateral interstitial and air space pulmonary infiltrates. Jaycob Martin MD Abdomen X-Ray 10/22/16 0000 Signed Impressions: Service Date/Time: Saturday, October 22, 2016 11:55 - CONCLUSION: 1. Mildly distended loops of proximal jejunum in the left upper quadrant consistent with adynamic ileus noted on CT exam. Mario Cha MD Abdomen/Pelvis CT 10/21/16 1622 Signed Impressions: Service Date/Time: Friday, October 21, 2016 23:19 - CONCLUSION: 1. Distended jejunum and with a fairly gradual transition to decompressed ileum. Air and stool seen in the colon. I believe this likely represents proximal small bowel ileus rather than obstruction. Abdominal x-ray surveillance recommended. 2. Stomach is decompressed with a nasogastric tube. 3. Interim drainage of the left upper quadrant/perisplenic fluid collection. The fluid collection measures smaller in the interim. 4. Trace ascites and moderate anasarca. 5. Left greater than right basilar consolidation again noted. Josué Kaur MD Needle Aspiration CT 10/19/16 0000 Signed Impressions: Service Date/Time: Wednesday, October 19, 2016 12:35 - CONCLUSION: Uncomplicated drainage of a large fluid collection in the left upper quadrant. This appeared to predominantly represent old hemorrhage. Binh Jones MD Paracentesis 10/17/16 0000 Signed Impressions: Service Date/Time: Monday, October 17, 2016 14:05 - CONCLUSION: Uncomplicated CT Guided paracentesis revealing hemorrhagic ascites. Fernando Jones MD FACR Abdomen Biopsy CT 10/17/16 0000 Signed Impressions: Service Date/Time: Monday, October 17, 2016 11:32 - CONCLUSION: Uncomplicated CT guided biopsy possible peritoneal metastasis. Fernando Jones MD FACR Chest CT 10/16/16 0000 Signed Impressions: Service Date/Time: October 16:59 - CONCLUSION: 1. Huge complex cystic mass/collection within the left upper quadrant which occupies the expected region of the spleen and is incompletely evaluated on this examination. CT of the abdomen will be performed this same day and will allow complete evaluation of this lesion. 2. Bilbasilar patchiness (left worse than right) consistent with atelectasis and/or pneumonia. Clinical correlation is recommended. 3. Small left pleural effusion. 4. Ascites within the upper abdomen. 5. Degenerative changes throughout the thoracic spine. 6. Coronary artery calcifications. Mahin Malin MD A/P Problem List: (1) Mass of abdomen Status: Acute Plan: - Pt is 56 yo with pmh of etoh abuse/pancreatitis - Pt admitted with c/o with left abdomen pain/fullness - CT abd/pelvis (10/21/16) --> LUQ perisplenic fluid collection, measuring smaller following drainage with IR - Abdominal asipration of 1.5 Liters on (10/19/16) - Case d/w Dr Darryl DAVIS (10/24/16). 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 In turn this lead to an outflow infarct of the spleen which eroded into the pseudocyst leading to a large abdominal mass/process. - pt had omental bx 10/17/16 which was non-diagnostic - abdominal aspirate cytology on 10/20/16 --> histiocytes and blood cells, but NO malignancy identified -Ileus of small bowel noted - Pt noted to have a continued intraabdominal fluid collection. Small since drainage and subsequent drainage catheter by IR - Still with sizeable intraabdominal fluid collection, but IR recommends against repeat drainage at this time - General Surgery advises repeat CT abd to reassess for possible future repeat drainage. - will schedule repeat CT abd/pelvis for /Thursday - pt now tolerating diet - supportive care - continue PT - lovenox for DVT prophylaxis -diuresis for volume overload -Pt on incentive spirometer/abx for compressive atelectasis/pna -daily PT (2) Volume overload Status: Acute Plan: see above (3) LLL pneumonia Status: Acute Plan: see above (4) Ileus Status: Acute Plan: - improved - pt received neostigmine while in the ICU - pt tolerating PO intake - reglan, protonix (5) Diarrhea Status: Acute Plan: - Pt had 3 episodes of loose stools overnight - obtain C.Dif PCR - obtain stool studies - NO flagyl yet (6) Alcoholism Status: Chronic Plan: - supportive care - Hugo Howard MD Oct 27, 2016 08:26
--- NOTE | 2016-10-27 09:33 | RADRPT ---
EXAM DATE/TIME: 10/27/2016 08:03 [facility] COMPARISON: CHEST PA & LAT, October 26, 2016, 9:12. CHEST SINGLE AP, October 21, 2016, 7:38. INDICATIONS : Short of breath. MEDICAL HISTORY : Pancreatitis. SURGICAL HISTORY : None. ENCOUNTER: Subsequent ACUITY: 3 days PAIN SCORE: 0/10 LOCATION: Bilateral upper chest FINDINGS: Portable upright AP view of the chest demonstrates a normal-sized cardiac silhouette with elevation l eft hemidiaphragm. There is severe airspace consolidation at the left base and mild consolidation in the right mid to lower lung zone. No pneumothorax or pleural effusion is visualized. Bones and soft t issues demonstrate no acute finding. CONCLUSION: Underinflation with bilateral lower lung zone predominant airspace consolidation, left greater than r ight. The right lung air space consolidation has improved compared to yesterday's exam while the left lung consolidation is stable. Josué Maya MD on October 27, 2016 at 9:29 Board Certified Radiologist. This report was verified electronically.
[2016-10-27] MEDS: FUROSEMIDE 20 MG TAB PO SCH ×2 (10:40→18:12)
[2016-10-27] MEDS: PANTOPRAZOLE SOD 40 MG DELAYED RELEASE TAB PO SCH (10:41)
[2016-10-27] MEDS: SODIUM CHLORIDE 0.9% 10 ML VIAL IRRIGATION SCH ×2 (10:53→15:02)
[2016-10-27] MEDS ORDERED: POTASSIUM CHLORIDE 25 MEQ EFFERVESCENT TAB PO ONE (12:00)
[2016-10-27] MEDS: ENOXAPARIN SODIUM 40 MG/0.4 ML SYRINGE SQ SCH (15:02)
[2016-10-27] MEDS: POTASSIUM CHLORIDE 25 MEQ EFFERVESCENT TAB PO SCH (20:28)
[2016-10-28] VITALS (10 sets, daily range): BP systolic 108–121; BP diastolic 57–66; PULSE 80–90; RESP 17–24; TEMP 96.6–98; O2SAT 95–98
[2016-10-28] MEDS: INSULIN NovoLIN REGULAR SUPPLEMENTAL SCALE SQ SCH ×2 (06:16)
[2016-10-28] MEDS: CHLORHEXIDINE 0.12% (ORAL KIT) 15 ML CUP MT SCH ×2 (06:16→20:00)
[2016-10-28] MEDS: METOCLOPRAMIDE HCL 10 MG/2 ML VIAL IV PUSH SCH (06:18)
[2016-10-28 07:25] LABS: BICARBONATE 27.4 MEQ/L (21.0-32.0); POTASSIUM 3.4 MEQ/L (3.5-5.1)
--- NOTE | 2016-10-28 08:02 | HHI.PR ---
Subjective Remarks on edge bed. small bm's 5 total yesterday Objective Vitals nad hoarse heart reg lung course bs thony abd s/nt/left flank drain ext trace edema Vital Signs Date Time Temp Pulse Resp B/P Pulse Ox O2 Delivery O2 Flow Rate FiO2 10/28/16 07:51 98 Nasal Cannula 2.50 10/28/16 04:00 97.6 89 17 119/64 95 10/28/16 00:00 97.9 90 17 121/60 96 10/27/16 21:52 97 Nasal Cannula 3.00 10/27/16 20:30 Nasal Cannula 2.50 10/27/16 20:15 91 10/27/16 20:00 98.1 87 17 121/73 97 10/27/16 18:12 16 10/27/16 16:00 97.2 86 20 131/79 98 10/27/16 13:00 97.7 88 20 124/65 96 10/27/16 10:40 Nasal Cannula 3.00 10/27/16 08:00 96.8 89 20 119/68 97 10/27/16 10/27/16 10/28/16 15:00 23:00 07:00 Intake Total 720 ml 600 ml Output Total 90 ml Balance 630 ml 600 ml Intake Oral 720 ml 600 ml Drainage Total 90 ml # Voids 3 2 # Bowel Movements 3 2 Result Diagram: 10/27/16 0503 10/28/16 0617 Imaging Last Impressions Chest X-Ray 10/25/16 0800 Signed Impressions: Service Date/Time: Tuesday, October 25, 2016 07:56 - CONCLUSION: Diffuse bilateral interstitial and air space pulmonary infiltrates. Jaycob Martin MD Abdomen X-Ray 10/22/16 0000 Signed Impressions: Service Date/Time: Saturday, October 22, 2016 11:55 - CONCLUSION: 1. Mildly distended loops of proximal jejunum in the left upper quadrant consistent with adynamic ileus noted on CT exam. Mario hCa MD Abdomen/Pelvis CT 10/21/16 1622 Signed Impressions: Service Date/Time: Friday, October 21, 2016 23:19 - CONCLUSION: 1. Distended jejunum and with a fairly gradual transition to decompressed ileum. Air and stool seen in the colon. I believe this likely represents proximal small bowel ileus rather than obstruction. Abdominal x-ray surveillance recommended. 2. Stomach is decompressed with a nasogastric tube. 3. Interim drainage of the left upper quadrant/perisplenic fluid collection. The fluid collection measures smaller in the interim. 4. Trace ascites and moderate anasarca. 5. Left greater than right basilar consolidation again noted. Josué Kaur MD Needle Aspiration CT 10/19/16 0000 Signed Impressions: Service Date/Time: Wednesday, October 19, 2016 12:35 - CONCLUSION: Uncomplicated drainage of a large fluid collection in the left upper quadrant. This appeared to predominantly represent old hemorrhage. Binh Jones MD Paracentesis 10/17/16 0000 Signed Impressions: Service Date/Time: Monday, October 17, 2016 14:05 - CONCLUSION: Uncomplicated CT Guided paracentesis revealing hemorrhagic ascites. Fernando Jones MD FACR Abdomen Biopsy CT 10/17/16 0000 Signed Impressions: Service Date/Time: Monday, October 17, 2016 11:32 - CONCLUSION: Uncomplicated CT guided biopsy possible peritoneal metastasis. Fernando Jones MD FACR Chest CT 10/16/16 0000 Signed Impressions: Service Date/Time: October 16:59 - CONCLUSION: 1. Huge complex cystic mass/collection within the left upper quadrant which occupies the expected region of the spleen and is incompletely evaluated on this examination. CT of the abdomen will be performed this same day and will allow complete evaluation of this lesion. 2. Bilbasilar patchiness (left worse than right) consistent with atelectasis and/or pneumonia. Clinical correlation is recommended. 3. Small left pleural effusion. 4. Ascites within the upper abdomen. 5. Degenerative changes throughout the thoracic spine. 6. Coronary artery calcifications. Mahin Malin MD A/P Problem List: (1) Mass of abdomen Status: Acute Plan: - Pt is 56 yo with pmh of etoh abuse/pancreatitis - Pt admitted with c/o with left abdomen pain/fullness - CT abd/pelvis (10/21/16) --> LUQ perisplenic fluid collection, measuring smaller following drainage with IR - Abdominal asipration of 1.5 Liters on (10/19/16) - Case d/w Dr Darryl DAVIS (10/24/16). 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 In turn this lead to an outflow infarct of the spleen which eroded into the pseudocyst leading to a large abdominal mass/process. - pt had omental bx 10/17/16 which was non-diagnostic - abdominal aspirate cytology on 10/20/16 --> histiocytes and blood cells, but NO malignancy identified -Ileus of small bowel noted - Pt with intraabdomen drain....drainage slowly dropping each day -less but persistent diarrhea. will hold reglan - pt now tolerating diet - continue PT - lovenox for DVT prophylaxis -diuresis for volume overload -Pt on incentive spirometer/abx for compressive atelectasis/pna General Surgery advises repeat CT abd to reassess for possible future repeat drainage. will order today (2) Volume overload Status: Acute Plan: see above (3) LLL pneumonia Status: Acute Plan: see above (4) Ileus Status: Acute Plan: - improved - pt received neostigmine while in the ICU - (5) Diarrhea Status: Acute Plan: see above (6) Alcoholism Status: Chronic Plan: - supportive care - Hugo Howard MD Oct 28, 2016 08:01
[2016-10-28] MEDS ORDERED: POTASSIUM CHLORIDE 25 MEQ EFFERVESCENT TAB PO ONE (08:30)
[2016-10-28] MEDS ORDERED: DIATRIZOATE MEGLUM/DIATRIZOATE SOD 9 ML CUP PO ONE (08:45)
[2016-10-28] MEDS: ENOXAPARIN SODIUM 40 MG/0.4 ML SYRINGE SQ SCH (09:32)
[2016-10-28] MEDS: POTASSIUM CHLORIDE 25 MEQ EFFERVESCENT TAB PO SCH ×2 (09:32→21:11)
[2016-10-28] MEDS: PANTOPRAZOLE SOD 40 MG DELAYED RELEASE TAB PO SCH (09:32)
[2016-10-28] MEDS: FUROSEMIDE 40 MG TAB PO SCH ×2 (09:32→18:31)
[2016-10-28] MEDS: SODIUM CHLORIDE 0.9% 10 ML VIAL IRRIGATION SCH ×2 (09:33→18:58)
--- NOTE | 2016-10-28 18:48 | RADRPT ---
EXAM DATE/TIME: 10/28/2016 17:51 [facility] COMPARISON: CT ABDOMEN & PELVIS W/O CONTRAST, October 21, 2016, 23:19. INDICATIONS : Evaluate for mass and fluid collection. ORAL CONTRAST: Prescribed oral contrast ingested. RADIATION DOSE: 14.03 CTDIvol (mGy) MEDICAL HISTORY : Pancreatitis. SURGICAL HISTORY : Abdominal aspiration of 1.5L on 10/19/16 ENCOUNTER: Subsequent ACUITY: 1 week PAIN SCALE: 4/10 LOCATION: Left lower chest TECHNIQUE: Volumetric scanning of the abdomen and pelvis was performed. Using automated exposure control and adjustment of the mA and/or kV according to patient size, radiation dose was kept as low as reasonably achievable to obtain optimal diagnostic quality images. DICOM format image data is av ailable electronically for review and comparison. FINDINGS: There are calcifications seen at the pancreatic head and uncinate process. The pancreat ic body and tail appear enlarged. The enlargement is particularly prominent at the tail. The pancrea tic tail is somewhat ill defined. There is fluid seen in the left upper quadrant around the pancreat ic tail and spleen. There is a drainage catheter in the left upper quadrant. There are two fluid shani ections seen in the left upper quadrant anterior to the pancreatic tail and to the left of the stomac h. The larger collection measures 4.9 x 4.0 x 6.7 cm. The smaller more lateral fluid collection percy ures 3.9 x 2.2 x 4.1 cm. There is some mild ascites seen in the anterior aspect of the peritoneal cav ity. There is focal fluid collection seen in the posterior left pararenal space measuring 3.6 x 1.4 cm. This could be related to pancreatitis. This was present previously and is unchanged. There is dense consolidation seen at the inferior left lingula and left lower lobe. There are areas of consolidation being less prominent at the right lower lobe. There is a mild left pleural effusion . The liver, adrenal glands and kidneys appear grossly normal for a noncontrast CT examination. The sm all bowel in the left upper quadrant appears somewhat distended measuring up to 3.5 cm. The distal s mall bowel is not distended. The colon is not distended. Contrast is seen extending into the colon. The structures within the pelvis appear grossly normal. There is minimal ascites seen in the dependen t portion of the peritoneal cavity in the pelvis. There is some degenerative change in the lower lum bar spine. CONCLUSION: 1. Suspected change of pancreatitis in the left upper quadrant with thickening of the pancreatic body and tail, lack of definition of theses structures, focal fluid collections seen anterior to the panc reatic tail and to the left of the stomach. 2. Fluid in the left upper quadrant with a drain in place and a suspected fluid collection in the pos terior pararenal space abutting the anterior aspect of the lumbar spine musculature. 3. Areas of consolidation in the lung bases bilaterally being worse on the left. Diffuse processes in cluding diffuse infection and/or edema needs to be considered. 4. Calcifications of the pancreatic head and uncinate process typically seen with chronic pancreatiti s. The changes in the left upper quadrant are more typical of acute pancreatitis. 5. Dilatation of the small bowel in the left upper quadrant. This could reflect a localized ileus giv en the suspected change of pancreatitis in the left upper quadrant. Contrast is clearly seen to exten d into the colon. Josué Albert MD on October 28, 2016 at 18:18 Board Certified Radiologist. This report was verified electronically.
[2016-10-29] VITALS (10 sets, daily range): BP systolic 110–135; BP diastolic 56–85; PULSE 56–99; RESP 17–20; TEMP 96–97.9; O2SAT 93–99
--- NOTE | 2016-10-29 05:33 | RADRPT ---
EXAM DATE/TIME: 10/29/2016 04:43 [facility] COMPARISON: CHEST SINGLE AP, October 27, 2016, 8:03. INDICATIONS : Short of breath. MEDICAL HISTORY : None. SURGICAL HISTORY : None. ENCOUNTER: Subsequent ACUITY: 2 weeks PAIN SCORE: 0/10 LOCATION: Bilateral chest FINDINGS: Patchy areas of consolidative infiltrate in the left mid and lower lung with associated elevation lef t hemidiaphragm is similar to prior exam. Diffuse non-consolidated infiltrates in the right lung are also unchanged. The heart is normal in size. CONCLUSION: Stable severity bilateral parenchymal opacities, consolidative on the left and non-consolidative on t he right. Filemon Arteaga MD on October 29, 2016 at 5:31 Board Certified Radiologist. This report was verified electronically.
[2016-10-29] MEDS: CHLORHEXIDINE 0.12% (ORAL KIT) 15 ML CUP MT SCH ×2 (07:14→19:44)
[2016-10-29 07:37] LABS: BICARBONATE 29.5 MEQ/L (21.0-32.0); POTASSIUM 3.7 MEQ/L (3.5-5.1)
[2016-10-29] MEDS: FUROSEMIDE 40 MG TAB PO SCH ×2 (09:13→16:52)
[2016-10-29] MEDS: SODIUM CHLORIDE 0.9% 10 ML VIAL IRRIGATION SCH ×2 (09:13→16:52)
[2016-10-29] MEDS: ENOXAPARIN SODIUM 40 MG/0.4 ML SYRINGE SQ SCH (09:13)
[2016-10-29] MEDS: PANTOPRAZOLE SOD 40 MG DELAYED RELEASE TAB PO SCH (09:13)
[2016-10-29] MEDS: POTASSIUM CHLORIDE 25 MEQ EFFERVESCENT TAB PO SCH ×2 (09:13→20:22)
--- NOTE | 2016-10-29 09:53 | HHI.PR ---
Subjective Remarks doing ok. still hoarse Objective Vitals heart reg lung course bs left base abd s/nt/nabs/left flank drain ext less edema Vital Signs Date Time Temp Pulse Resp B/P Pulse Ox O2 Delivery O2 Flow Rate FiO2 10/29/16 09:22 Nasal Cannula 2.00 10/29/16 08:00 96.8 89 20 119/56 99 10/29/16 04:00 96.0 88 17 110/61 98 10/29/16 00:00 97.2 99 17 135/85 96 10/28/16 21:11 Nasal Cannula 2.50 55 10/28/16 20:25 97 Nasal Cannula 2.50 10/28/16 20:07 85 10/28/16 20:00 98.0 89 17 121/66 97 10/28/16 16:00 97.8 82 24 114/64 98 10/28/16 12:00 96.6 80 18 113/59 98 10/28/16 10/28/16 10/29/16 15:00 23:00 07:00 Intake Total 867 ml 240 ml Output Total 1800 ml Balance -933 ml 240 ml Intake Oral 867 ml 240 ml Output Urine Total 1800 ml # Voids 3 # Bowel Movements 2 1 Result Diagram: 10/27/16 0503 10/29/16 0545 Imaging Last Impressions Chest X-Ray 10/25/16 0800 Signed Impressions: Service Date/Time: Tuesday, October 25, 2016 07:56 - CONCLUSION: Diffuse bilateral interstitial and air space pulmonary infiltrates. Jaycob Martin MD Abdomen X-Ray 10/22/16 0000 Signed Impressions: Service Date/Time: Saturday, October 22, 2016 11:55 - CONCLUSION: 1. Mildly distended loops of proximal jejunum in the left upper quadrant consistent with adynamic ileus noted on CT exam. Mario Cha MD Abdomen/Pelvis CT 10/21/16 1622 Signed Impressions: Service Date/Time: Friday, October 21, 2016 23:19 - CONCLUSION: 1. Distended jejunum and with a fairly gradual transition to decompressed ileum. Air and stool seen in the colon. I believe this likely represents proximal small bowel ileus rather than obstruction. Abdominal x-ray surveillance recommended. 2. Stomach is decompressed with a nasogastric tube. 3. Interim drainage of the left upper quadrant/perisplenic fluid collection. The fluid collection measures smaller in the interim. 4. Trace ascites and moderate anasarca. 5. Left greater than right basilar consolidation again noted. Josué Kaur MD Needle Aspiration CT 10/19/16 0000 Signed Impressions: Service Date/Time: Wednesday, October 19, 2016 12:35 - CONCLUSION: Uncomplicated drainage of a large fluid collection in the left upper quadrant. This appeared to predominantly represent old hemorrhage. Binh Jones MD Paracentesis 10/17/16 0000 Signed Impressions: Service Date/Time: Monday, October 17, 2016 14:05 - CONCLUSION: Uncomplicated CT Guided paracentesis revealing hemorrhagic ascites. Fernando Jnoes MD FACR Abdomen Biopsy CT 10/17/16 0000 Signed Impressions: Service Date/Time: Monday, October 17, 2016 11:32 - CONCLUSION: Uncomplicated CT guided biopsy possible peritoneal metastasis. Fernando Jones MD FACR Chest CT 10/16/16 0000 Signed Impressions: Service Date/Time: October 16:59 - CONCLUSION: 1. Huge complex cystic mass/collection within the left upper quadrant which occupies the expected region of the spleen and is incompletely evaluated on this examination. CT of the abdomen will be performed this same day and will allow complete evaluation of this lesion. 2. Bilbasilar patchiness (left worse than right) consistent with atelectasis and/or pneumonia. Clinical correlation is recommended. 3. Small left pleural effusion. 4. Ascites within the upper abdomen. 5. Degenerative changes throughout the thoracic spine. 6. Coronary artery calcifications. 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 In turn this lead to an outflow infarct of the spleen which eroded into the pseudocyst leading to a large abdominal mass/process. - pt had omental bx 10/17/16 which was non-diagnostic - abdominal aspirate cytology on 10/20/16 --> histiocytes and blood cells, but NO malignancy identified -Ileus of small bowel noted -anemia. mf. chronic illness - has had some rectal bleeding last few days felt hemorrhoid related. - Pt with intraabdomen drain....drainage slowly dropping each day - less but persistent diarrhea. will hold reglan - pt now tolerating diet - continue PT - lovenox for DVT prophylaxis -diuresis for volume overload -Pt on incentive spirometer/ post abx for compressive atelectasis/pna General Surgery advises repeat CT abd to reassess for possible future repeat drainage. Repeat CT complete on 10/28 and fluid pockets noted. will notify gen surg to review the films and of current drainage. addendum: nurse called from TIC room. strips reviewed. Pt has been having second degree avb/mobitz type one overnight and today. will get echo. check lytes. pt appears stable. will get cardiology opinion. (2) Volume overload Status: Acute Plan: see above (3) LLL pneumonia Status: Acute Plan: see above (4) Ileus Status: Acute Plan: - improved - pt received neostigmine while in the ICU - (5) Diarrhea Status: Acute Plan: see above (6) Alcoholism Status: Chronic Plan: - supportive care - Hugo Howard MD Oct 29, 2016 09:53
--- NOTE | 2016-10-29 16:02 | ECHRPT ---
Indication: Heart failure, unspecified CONCLUSIONS Normal left ventricular size and wall thickness. The left ventricular systolic function is normal with an estimated ejection fraction in the range of 50-55%. Left ventricular diastolic function parameters are normal. Mitral annular calcification is present. BP: 119 / 56 HR: 56 Rhythm: Sinus MEASUREMENTS (Male / Female) Normal Values Technical Quality:Good 2D ECHO LV Diastolic Diameter PLAX 4.4 cm 4.2 - 5.9 / 3.9 - 5.3 cm LV Systolic Diameter PLAX 3.2 cm IVS Diastolic Thickness 0.9 cm 0.6 - 1.0 / 0.6 - 0.9 cm LVPW Diastolic Thickness 0.8 cm 0.6 - 1.0 / 0.6 - 0.9 cm LV Relative Wall Thickness 0.4 RV Internal Dim ED PLAX 2.0 cm LA Systolic Diameter LX 3.8 cm 3.0 - 4.0 / 2.7 - 3.8 cm M-MODE Aortic Root Diameter MM 3.5 cm AV Cusp Separation MM 2.4 cm DOPPLER Mitral E Point Velocity 63.7 cm/s Mitral A Point Velocity 79.0 cm/s Mitral E to A Ratio 0.8 TR Peak Velocity 216.0 cm/s TR Peak Gradient 18.7 mmHg FINDINGS LEFT VENTRICLE Normal left ventricular size and wall thickness. The left ventricular systolic function is normal wi th an estimated ejection fraction in the range of 50-55%. Left ventricular diastolic function parameters a re normal. RIGHT VENTRICLE Normal right ventricular size and systolic function. LEFT ATRIUM The left atrial size is normal. RIGHT ATRIUM The right atrial size is normal. ATRIAL SEPTUM Normal atrial septal thickness without atrial level shunting by limited color doppler interrogation. AORTA The aortic root and proximal ascending aorta are normal in size on limited imaging. MITRAL VALVE Mitral annular calcification is present. AORTIC VALVE Trileaflet aortic valve. No aortic valve stenosis or regurgitation. TRICUSPID VALVE Structurally normal tricuspid valve. No tricuspid valve stenosis or regurgitation. PULMONARY VALVE The pulmonary valve is not well visualized. VESSELS The inferior vena cava is normal in size. PERICARDIUM No pericardial effusion. Tray Winston MD (Electronically Signed) Final Date:29 October 2016 16:01
[2016-10-30] VITALS (8 sets, daily range): BP systolic 108–119; BP diastolic 62–70; PULSE 80–88; RESP 16–18; TEMP 96.5–98.2; O2SAT 93–99
[2016-10-30] MEDS: CHLORHEXIDINE 0.12% (ORAL KIT) 15 ML CUP MT SCH ×2 (08:00→19:42)
--- NOTE | 2016-10-30 08:05 | PD.CONS ---
HPI Service CV Consult Requested By Reason for Consult 2nd degree AVB type I Primary Care Physician No Primary Care Physician History of Present Illness Here with abdominal pain and found to have abdominal mass and pneumonia. We are consulted secondary to 2nd degree AVB found on telemetry. He denies any chest pain, shortness of breath, lightheadedness or palpitations, Review of Systems Consitutional: DENIES: Fatigue, Fever, Chills, Weight gain, Weight loss Eyes: DENIES: Amaurosis Fugax, Change in vision HEENT: DENIES: Lightheadedness, Change in hearing Respiratory: DENIES: See HPI, Cough, Snoring, Shortness of breath, Wheezing, Sputum production Cardiovascular: COMPLAINS OF: See HPI Gastrointestinal: DENIES: Nausea, Vomiting, Change in bowel habits, Reflux, Bloody stools, Melena Genitourinary: DENIES: Urinary incontinence, Difficulty voiding Integumentary: DENIES: Rash Neurologic: DENIES: Tingling or numbness, Memory problems, Poor Balance, Stroke symptoms Musculoskeletal: DENIES: Joint pain, Muscle pain, Limited range of motion, Back pain Psychiatric: DENIES: Anxiety, Depression, Sleep disturbances Hematologic: DENIES: Bruising tendencies, Bleeding tendencies Endocrine: DENIES: Weight gain, Weight loss, Thyroid disease Past Family Social History Allergies: Coded Allergies: No Known Allergies (Verified , 10/16/16) Past Medical History Previous heavy EtOH use Pancreatitis Past Surgical History none prior to this hospitalization Reported Medications Reported Meds & Active Scripts Active No Active Prescriptions or Reported Medications Active Ordered Medications Current Medications Medications (Trade) Dose Ordered Sig/Jose Route Start Time Stop Time Status Last Admin (Zofran Inj) 4 mg Q4H PRN IV PUSH 10/18/16 11:00 10/23/16 17:40 (Lovenox Inj) 40 mg Q24H SQ 10/19/16 09:00 10/29/16 09:13 (Peridex 0.12% Liq) 15 ml BID@08,20 MT 10/19/16 20:00 10/23/16 20:06 (NS Inj) 10 ml DAILY@1600 IRRIGATION 10/19/16 16:00 10/29/16 16:52 (D50w (Vial) Inj) 25 ml UNSCH PRN IV PUSH 10/20/16 08:30 (NS Inj) 10 ml DAILY IRRIGATION 10/22/16 13:00 10/29/16 09:13 (Dilaudid Pf Inj) 0.5 mg Q4H PRN IV PUSH 10/23/16 09:00 (Roxicodone) 5 mg Q4H PRN PO 10/23/16 07:30 10/29/16 09:13 (Protonix) 40 mg DAILY PO 10/23/16 09:00 10/29/16 09:13 (K-Lyte Cl Eff) 25 meq Q12HR PO 10/27/16 21:00 10/29/16 20:22 (Lasix) 40 mg BID@,18 PO 10/28/16 09:00 10/29/16 16:52 Family History noncontributory Social History smokes 1/2 ppd for 38 yrs Occasional Etoh now (few drinks on w/e), but previously heavy EtoH daily Previously smoked pot and used some cocaine in his 20/30s; never used IVD Physical Exam Vital Signs Vital Signs Date Time Temp Pulse Resp B/P Pulse Ox O2 Delivery O2 Flow Rate FiO2 10/30/16 04:00 97.7 87 17 115/63 93 10/30/16 00:00 97.6 88 17 119/65 93 10/29/16 21:00 89 10/29/16 21:00 93 Room Air 21 10/29/16 20:32 96 21 10/29/16 20:00 97.7 90 17 123/63 93 10/29/16 16:00 97.9 82 20 121/66 95 10/29/16 12:00 97.0 82 18 119/71 94 10/29/16 11:41 93 Room Air 10/29/16 10:04 56 10/29/16 10:00 97 Nasal Cannula 2.00 10/29/16 09:22 Nasal Cannula 2.00 10/29/16 08:00 96.8 89 20 119/56 99 10/29/16 08:00 88 Physical Exam GENERAL: Well-nourished, well-developed patient in no apparent distress. NECK: No JVD. No carotid bruit. CARDIOVASCULAR: Regular rate and rhythm. S1/S2 no murmur, rub, or gallop. RESPIRATORY: No accessory muscle use. Clear to auscultation. Breath sounds equal bilaterally. GASTROINTESTINAL: Abdomen soft, non-tender, nondistended. MUSCULOSKELETAL: Extremities without clubbing, cyanosis, or edema. Laboratory Date/Time Procedure Status Source Growth 10/26/16 11:45 Stool Pus (MEME) - Final Complete Stool Stool 10/26/16 11:45 Stool Occult Blood ([facility]E) - Final Complete Stool Stool HEMOCCULT NEGATIVE 10/26/16 11:45 Cancelled Stool Stool Result Diagram: 10/27/16 0503 10/29/16 0545 Assessment and Plan Problem List: (1) Farheen second degree AV block Assessment and Plan He is asymptomatic, He is on no AVN blocking agents. Continue to monitor telemetry. Sign off, call if AVB progresses Buster Tripathi Oct 30, 2016 08:05
[2016-10-30 08:50] LABS: MAGNESIUM 1.5 MG/DL (1.5-2.5); POTASSIUM 3.7 MEQ/L (3.5-5.1)
[2016-10-30] MEDS: SODIUM CHLORIDE 0.9% 10 ML VIAL IRRIGATION SCH ×2 (09:00→18:00)
[2016-10-30] MEDS: PANTOPRAZOLE SOD 40 MG DELAYED RELEASE TAB PO SCH (09:09)
[2016-10-30] MEDS: ENOXAPARIN SODIUM 40 MG/0.4 ML SYRINGE SQ SCH (09:09)
[2016-10-30] MEDS: POTASSIUM CHLORIDE 25 MEQ EFFERVESCENT TAB PO SCH ×2 (09:10→19:41)
[2016-10-30] MEDS: FUROSEMIDE 40 MG TAB PO SCH ×2 (09:10→18:00)
--- NOTE | 2016-10-30 09:24 | HHI.PR ---
Subjective Remarks doing ok. no new complaints Objective Vitals hoarse heart reg lung course left base abd s/nt/left flank drain ext trace edema Vital Signs Date Time Temp Pulse Resp B/P Pulse Ox O2 Delivery O2 Flow Rate FiO2 10/30/16 08:47 94 21 10/30/16 08:00 96.5 86 16 109/66 94 10/30/16 04:00 97.7 87 17 115/63 93 10/30/16 00:00 97.6 88 17 119/65 93 10/29/16 21:00 89 10/29/16 21:00 93 Room Air 21 10/29/16 20:32 96 21 10/29/16 20:00 97.7 90 17 123/63 93 10/29/16 16:00 97.9 82 20 121/66 95 10/29/16 12:00 97.0 82 18 119/71 94 10/29/16 11:41 93 Room Air 10/29/16 10:04 56 10/29/16 10:00 97 Nasal Cannula 2.00 10/29/16 09:22 Nasal Cannula 2.00 10/29/16 10/29/16 10/30/16 15:00 23:00 07:00 Intake Total 600 ml Output Total 900 ml 605 ml 20 ml Balance -300 ml -605 ml -20 ml Intake Oral 600 ml Output Urine Total 800 ml 500 ml Drainage Total 100 ml 105 ml 20 ml # Voids 1 # Bowel Movements 3 1 Result Diagram: 10/27/16 0503 10/30/16 0603 Imaging Last Impressions Chest X-Ray 10/25/16 0800 Signed Impressions: Service Date/Time: Tuesday, October 25, 2016 07:56 - CONCLUSION: Diffuse bilateral interstitial and air space pulmonary infiltrates. Jaycob Martin MD Abdomen X-Ray 10/22/16 0000 Signed Impressions: Service Date/Time: Saturday, October 22, 2016 11:55 - CONCLUSION: 1. Mildly distended loops of proximal jejunum in the left upper quadrant consistent with adynamic ileus noted on CT exam. Mario Cha MD Abdomen/Pelvis CT 10/21/16 1622 Signed Impressions: Service Date/Time: Friday, October 21, 2016 23:19 - CONCLUSION: 1. Distended jejunum and with a fairly gradual transition to decompressed ileum. Air and stool seen in the colon. I believe this likely represents proximal small bowel ileus rather than obstruction. Abdominal x-ray surveillance recommended. 2. Stomach is decompressed with a nasogastric tube. 3. Interim drainage of the left upper quadrant/perisplenic fluid collection. The fluid collection measures smaller in the interim. 4. Trace ascites and moderate anasarca. 5. Left greater than right basilar consolidation again noted. Josué Kaur MD Needle Aspiration CT 10/19/16 0000 Signed Impressions: Service Date/Time: Wednesday, October 19, 2016 12:35 - CONCLUSION: Uncomplicated drainage of a large fluid collection in the left upper quadrant. This appeared to predominantly represent old hemorrhage. Binh Jones MD Paracentesis 10/17/16 0000 Signed Impressions: Service Date/Time: Monday, October 17, 2016 14:05 - CONCLUSION: Uncomplicated CT Guided paracentesis revealing hemorrhagic ascites. Fernando Jones MD FACR Abdomen Biopsy CT 10/17/16 0000 Signed Impressions: Service Date/Time: Monday, October 17, 2016 11:32 - CONCLUSION: Uncomplicated CT guided biopsy possible peritoneal metastasis. Fernando Jones MD FACR Chest CT 10/16/16 0000 Signed Impressions: Service Date/Time: October 16:59 - CONCLUSION: 1. Huge complex cystic mass/collection within the left upper quadrant which occupies the expected region of the spleen and is incompletely evaluated on this examination. CT of the abdomen will be performed this same day and will allow complete evaluation of this lesion. 2. Bilbasilar patchiness (left worse than right) consistent with atelectasis and/or pneumonia. Clinical correlation is recommended. 3. Small left pleural effusion. 4. Ascites within the upper abdomen. 5. Degenerative changes throughout the thoracic spine. 6. Coronary artery calcifications. 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 In turn this lead to an outflow infarct of the spleen which eroded into the pseudocyst leading to a large abdominal mass/process. - pt had omental bx 10/17/16 which was non-diagnostic - abdominal aspirate cytology on 10/20/16 --> histiocytes and blood cells, but NO malignancy identified -Ileus of small bowel noted -anemia. mf. chronic illness - has had some rectal bleeding last few days felt hemorrhoid related. 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 ASX. echo nml LVF 10/29 - Pt with intraabdomen drain...monitor drain output ...increased again past 24hrs - diarrhea better. - pt now tolerating diet - continue PT - lovenox for DVT prophylaxis -diuresis for volume overload -Pt on incentive spirometer/ post abx for compressive atelectasis/pna ..He is now on room air General Surgery advises repeat CT abd to reassess for possible future repeat drainage. Repeat CT complete on 10/28 and fluid pockets noted. notified gen surg to review the films and of current drainage. (2) Volume overload Status: Acute Plan: see above (3) LLL pneumonia Status: Acute Plan: see above (4) Ileus Status: Acute Plan: - improved - pt received neostigmine while in the ICU - (5) Diarrhea Status: Acute Plan: see above (6) Alcoholism Status: Chronic Plan: - supportive care - Hugo Howard MD Oct 30, 2016 09:24
[2016-10-30] MEDS ORDERED: TEMAZEPAM 15 MG CAP PO PRN (20:00)
[2016-10-31] VITALS (9 sets, daily range): BP systolic 107–118; BP diastolic 59–69; PULSE 82–93; RESP 16–20; TEMP 96.4–97.9; O2SAT 95–100
[2016-10-31] MEDS: CHLORHEXIDINE 0.12% (ORAL KIT) 15 ML CUP MT SCH ×2 (08:00→20:00)
--- NOTE | 2016-10-31 08:44 | HHI.PR ---
Subjective Remarks no complaints ambulating marva food no diarrhea Objective Vitals heart reg lung improved air entry abd s/nt ext trace edema left flank drain Vital Signs Date Time Temp Pulse Resp B/P Pulse Ox O2 Delivery O2 Flow Rate FiO2 10/31/16 04:27 97.1 91 20 107/59 97 10/31/16 00:00 97.9 89 18 108/59 95 10/30/16 21:00 99 Room Air 21 10/30/16 20:00 98.2 88 18 117/62 99 10/30/16 18:07 98 21 10/30/16 16:00 96.6 80 16 112/70 98 10/30/16 12:00 97.0 88 16 108/63 97 10/30/16 10:06 Room Air 10/30/16 08:47 94 21 10/30/16 10/30/16 10/31/16 15:00 23:00 07:00 Intake Total 840 ml 250 ml Output Total 110 ml 20 ml Balance 840 ml 140 ml -20 ml Intake Oral 840 ml 240 ml Tube Irrigant 10 ml Drainage Total 110 ml 20 ml # Voids 5 # Bowel Movements 1 Result Diagram: 10/27/16 0503 10/30/16 0603 Imaging Last Impressions Chest X-Ray 10/25/16 0800 Signed Impressions: Service Date/Time: Tuesday, October 25, 2016 07:56 - CONCLUSION: Diffuse bilateral interstitial and air space pulmonary infiltrates. Jaycob Martin MD Abdomen X-Ray 10/22/16 0000 Signed Impressions: Service Date/Time: Saturday, October 22, 2016 11:55 - CONCLUSION: 1. Mildly distended loops of proximal jejunum in the left upper quadrant consistent with adynamic ileus noted on CT exam. Mario Cha MD Abdomen/Pelvis CT 10/21/16 1622 Signed Impressions: Service Date/Time: Friday, October 21, 2016 23:19 - CONCLUSION: 1. Distended jejunum and with a fairly gradual transition to decompressed ileum. Air and stool seen in the colon. I believe this likely represents proximal small bowel ileus rather than obstruction. Abdominal x-ray surveillance recommended. 2. Stomach is decompressed with a nasogastric tube. 3. Interim drainage of the left upper quadrant/perisplenic fluid collection. The fluid collection measures smaller in the interim. 4. Trace ascites and moderate anasarca. 5. Left greater than right basilar consolidation again noted. Josué Kaur MD Needle Aspiration CT 10/19/16 0000 Signed Impressions: Service Date/Time: Wednesday, October 19, 2016 12:35 - CONCLUSION: Uncomplicated drainage of a large fluid collection in the left upper quadrant. This appeared to predominantly represent old hemorrhage. Binh Jones MD Paracentesis 10/17/16 0000 Signed Impressions: Service Date/Time: Monday, October 17, 2016 14:05 - CONCLUSION: Uncomplicated CT Guided paracentesis revealing hemorrhagic ascites. Fernando Jones MD FACR Abdomen Biopsy CT 10/17/16 0000 Signed Impressions: Service Date/Time: Monday, October 17, 2016 11:32 - CONCLUSION: Uncomplicated CT guided biopsy possible peritoneal metastasis. Fernando Jones MD FACR Chest CT 10/16/16 0000 Signed Impressions: Service Date/Time: October 16:59 - CONCLUSION: 1. Huge complex cystic mass/collection within the left upper quadrant which occupies the expected region of the spleen and is incompletely evaluated on this examination. CT of the abdomen will be performed this same day and will allow complete evaluation of this lesion. 2. Bilbasilar patchiness (left worse than right) consistent with atelectasis and/or pneumonia. Clinical correlation is recommended. 3. Small left pleural effusion. 4. Ascites within the upper abdomen. 5. Degenerative changes throughout the thoracic spine. 6. Coronary artery calcifications. 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 In turn this lead to an outflow infarct of the spleen which eroded into the pseudocyst leading to a large abdominal mass/process. - pt had omental bx 10/17/16 which was non-diagnostic - abdominal aspirate cytology on 10/20/16 --> histiocytes and blood cells, but NO malignancy identified -Ileus of small bowel noted -anemia. mf. chronic illness - has had some rectal bleeding last few days felt hemorrhoid related. 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 ASX. echo nml LVF 10/29 - Pt with intraabdomen drain...monitor drain output ...drainage slowing down - diarrhea better. - pt now tolerating diet - continue PT - lovenox for DVT prophylaxis -diuresis for volume overload. monitor bmp -Pt on incentive spirometer/ post abx for compressive atelectasis/pna ..He is now on room air General Surgery advises repeat CT abd to reassess for possible future repeat drainage. Repeat CT complete on 10/28 and fluid pockets noted. notified gen surg to review the films and of current drainage. (2) Volume overload Status: Acute Plan: see above (3) LLL pneumonia Status: Acute Plan: see above (4) Ileus Status: Acute Plan: - improved - pt received neostigmine while in the ICU - (5) Diarrhea Status: Acute Plan: see above (6) Alcoholism Status: Chronic Plan: - supportive care - Hugo Howard MD Oct 31, 2016 08:44
[2016-10-31] MEDS: ENOXAPARIN SODIUM 40 MG/0.4 ML SYRINGE SQ SCH (09:08)
[2016-10-31] MEDS: PANTOPRAZOLE SOD 40 MG DELAYED RELEASE TAB PO SCH (09:09)
[2016-10-31] MEDS: SODIUM CHLORIDE 0.9% 10 ML VIAL IRRIGATION SCH ×2 (09:09→16:19)
[2016-10-31] MEDS: POTASSIUM CHLORIDE 25 MEQ EFFERVESCENT TAB PO SCH ×2 (09:09→21:10)
[2016-10-31] MEDS: FUROSEMIDE 40 MG TAB PO SCH ×2 (09:09→17:10)
[2016-11-01] VITALS: BP 101/52; PULSE 90; RESP 18; TEMP 96.7; O2SAT 98
[2016-11-01 04:00] VITALS: BP 114/66; PULSE 92; RESP 18; TEMP 96.7; O2SAT 100
[2016-11-01] MEDS: CHLORHEXIDINE 0.12% (ORAL KIT) 15 ML CUP MT SCH ×2 (08:00→20:00)
[2016-11-01 08:46] VITALS: BP 114/70; PULSE 81; RESP 16; TEMP 96; O2SAT 94
[2016-11-01] MEDS: SODIUM CHLORIDE 0.9% 10 ML VIAL IRRIGATION SCH ×2 (09:00→16:00)
[2016-11-01] MEDS: ENOXAPARIN SODIUM 40 MG/0.4 ML SYRINGE SQ SCH (09:31)
[2016-11-01] MEDS: FUROSEMIDE 40 MG TAB PO SCH ×2 (09:31→17:18)
[2016-11-01] MEDS: POTASSIUM CHLORIDE 25 MEQ EFFERVESCENT TAB PO SCH ×2 (09:31→21:06)
[2016-11-01] MEDS: PANTOPRAZOLE SOD 40 MG DELAYED RELEASE TAB PO SCH (09:31)
--- NOTE | 2016-11-01 09:51 | HHI.PR ---
Subjective Remarks feels well. no complaints Objective Vitals mild hoarse heart reg lung good air entry abd s//nt/bs ext trace edema left flank drain. Vital Signs Date Time Temp Pulse Resp B/P Pulse Ox O2 Delivery O2 Flow Rate FiO2 11/01/16 08:55 Room Air 11/01/16 08:46 96.0 81 16 114/70 94 11/01/16 04:00 96.7 92 18 114/66 100 11/01/16 00:00 96.7 90 18 101/52 98 10/31/16 20:03 Room Air 10/31/16 20:01 88 10/31/16 20:00 96.4 93 18 112/69 99 10/31/16 16:00 97.0 84 16 118/60 99 10/31/16 12:00 96.9 89 16 118/62 98 10/31/16 10/31/16 11/01/16 15:00 23:00 07:00 Intake Total 1080 ml 1080 ml 720 ml Output Total 80 ml 100 ml Balance 1080 ml 1000 ml 620 ml Intake Oral 1080 ml 1080 ml 720 ml Drainage Total 80 ml 100 ml # Voids 4 1 3 # Bowel Movements 0 1 Result Diagram: 10/30/16 0603 Imaging Last Impressions Chest X-Ray 10/25/16 0800 Signed Impressions: Service Date/Time: Tuesday, October 25, 2016 07:56 - CONCLUSION: Diffuse bilateral interstitial and air space pulmonary infiltrates. Jaycob Martin MD Abdomen X-Ray 10/22/16 0000 Signed Impressions: Service Date/Time: Saturday, October 22, 2016 11:55 - CONCLUSION: 1. Mildly distended loops of proximal jejunum in the left upper quadrant consistent with adynamic ileus noted on CT exam. Mario Cha MD Abdomen/Pelvis CT 10/21/16 1622 Signed Impressions: Service Date/Time: Friday, October 21, 2016 23:19 - CONCLUSION: 1. Distended jejunum and with a fairly gradual transition to decompressed ileum. Air and stool seen in the colon. I believe this likely represents proximal small bowel ileus rather than obstruction. Abdominal x-ray surveillance recommended. 2. Stomach is decompressed with a nasogastric tube. 3. Interim drainage of the left upper quadrant/perisplenic fluid collection. The fluid collection measures smaller in the interim. 4. Trace ascites and moderate anasarca. 5. Left greater than right basilar consolidation again noted. Josué Kaur MD Needle Aspiration CT 10/19/16 0000 Signed Impressions: Service Date/Time: Wednesday, October 19, 2016 12:35 - CONCLUSION: Uncomplicated drainage of a large fluid collection in the left upper quadrant. This appeared to predominantly represent old hemorrhage. Binh Jones MD Paracentesis 10/17/16 0000 Signed Impressions: Service Date/Time: Monday, October 17, 2016 14:05 - CONCLUSION: Uncomplicated CT Guided paracentesis revealing hemorrhagic ascites. Fernando Jones MD FACR Abdomen Biopsy CT 10/17/16 0000 Signed Impressions: Service Date/Time: Monday, October 17, 2016 11:32 - CONCLUSION: Uncomplicated CT guided biopsy possible peritoneal metastasis. Fernando Jones MD FACR Chest CT 10/16/16 0000 Signed Impressions: Service Date/Time: October 16:59 - CONCLUSION: 1. Huge complex cystic mass/collection within the left upper quadrant which occupies the expected region of the spleen and is incompletely evaluated on this examination. CT of the abdomen will be performed this same day and will allow complete evaluation of this lesion. 2. Bilbasilar patchiness (left worse than right) consistent with atelectasis and/or pneumonia. Clinical correlation is recommended. 3. Small left pleural effusion. 4. Ascites within the upper abdomen. 5. Degenerative changes throughout the thoracic spine. 6. Coronary artery calcifications. 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 In turn this lead to an outflow infarct of the spleen which eroded into the pseudocyst leading to a large abdominal mass/process. - pt had omental bx 10/17/16 which was non-diagnostic - abdominal aspirate cytology on 10/20/16 --> histiocytes and blood cells, but NO malignancy identified -Ileus of small bowel noted -anemia. mf. chronic illness - has had some rectal bleeding last few days felt hemorrhoid related. 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 ASX. echo nml LVF 10/29 - Pt with intraabdomen drain...monitor drain output ...drainage slowing down...hopefully the drain can be removed early next week...if still draining alot will discuss with IR/gen surg to decide on pulling it vs d/c home with a drain. - diarrhea better. - pt now tolerating diet - continue PT - lovenox for DVT prophylaxis -diuresis for volume overload. monitor bmp -Pt on incentive spirometer/ post abx for compressive atelectasis/pna ..He is now on room air General Surgery advises repeat CT abd to reassess for possible future repeat drainage. Repeat CT complete on 10/28 and fluid pockets noted. notified gen surg to review the films and of current drainage. (2) Volume overload Status: Acute Plan: see above (3) LLL pneumonia Status: Acute Plan: see above (4) Ileus Status: Acute Plan: - improved - pt received neostigmine while in the ICU - (5) Diarrhea Status: Acute Plan: see above (6) Alcoholism Status: Chronic Plan: - supportive care - Hugo Howard MD Nov 01, 2016 09:51
[2016-11-01 12:00] VITALS: BP 101/65; PULSE 93; RESP 16; TEMP 98.1; O2SAT 98
[2016-11-01 16:48] VITALS: BP 132/71; PULSE 88; RESP 16; TEMP 98; O2SAT 100
[2016-11-01 20:00] VITALS: BP 104/60; PULSE 90; PULSE 92; RESP 18; TEMP 97.4; O2SAT 96
[2016-11-01] MEDS ORDERED: ZOLPIDEM TARTRATE 10 MG TAB PO ONE (23:00)
[2016-11-02] VITALS (7 sets, daily range): BP systolic 107–128; BP diastolic 58–69; PULSE 82–88; RESP 16–18; TEMP 96.7–98.2; O2SAT 96–100
[2016-11-02 06:46] LABS: AUTOMATED NEUTROPHIL # 6.5 TH/MM3 (1.8-7.7); BASOPHIL # 0.3 TH/MM3 (0-0.2); BASOPHIL % 2.4 % (0.0-2.0); EOSINOPHIL # 0.7 TH/MM3 (0-0.4); EOSINOPHIL % 4.9 % (0.0-4.0); HEMATOCRIT 27.6 % (39.0-51.0); HEMO FLAGS DIFF FINAL; LYMPH % 30.5 % (9.0-44.0); LYMPHOCYTE # 4.2 TH/MM3 (1.0-4.8); MEAN CELL VOLUME 81.8 FL (80.0-100.0); MEAN CORPUSCULAR HEMOGLOBIN 25.9 PG (27.0-34.0); MEAN CORPUSCULAR HGB CONC 31.7 % (32.0-36.0); MONO % 14.5 % (0.0-8.0); NEUT % 47.7 % (16.0-70.0); PLATELET COUNT 595 TH/MM3 (150-450); RED BLOOD COUNT 3.37 MIL/MM3 (4.50-5.90); RED CELL DISTRIBUTION WIDTH 19.2 % (11.6-17.2); WHITE BLOOD COUNT 13.7 TH/MM3 (4.0-11.0)
[2016-11-02 07:14] LABS: BICARBONATE 29.3 MEQ/L (21.0-32.0); POTASSIUM 3.7 MEQ/L (3.5-5.1)
[2016-11-02] MEDS: CHLORHEXIDINE 0.12% (ORAL KIT) 15 ML CUP MT SCH ×2 (08:00→09:40)
[2016-11-02] MEDS: SODIUM CHLORIDE 0.9% 10 ML VIAL IRRIGATION SCH ×2 (09:00→16:00)
[2016-11-02] MEDS: ENOXAPARIN SODIUM 40 MG/0.4 ML SYRINGE SQ SCH (09:36)
[2016-11-02] MEDS: PANTOPRAZOLE SOD 40 MG DELAYED RELEASE TAB PO SCH (09:36)
[2016-11-02] MEDS: FUROSEMIDE 40 MG TAB PO SCH (09:36)
[2016-11-02] MEDS: POTASSIUM CHLORIDE 25 MEQ EFFERVESCENT TAB PO SCH ×2 (09:36→20:14)
--- NOTE | 2016-11-02 09:46 | HHI.PR ---
Subjective Remarks doing ok eager for d/c Objective Vitals heart reg lung good air entry abd s/nt/left flank drain ext no edema Vital Signs Date Time Temp Pulse Resp B/P Pulse Ox O2 Delivery O2 Flow Rate FiO2 11/02/16 08:00 97.9 88 16 128/62 100 11/02/16 04:00 85 11/02/16 04:00 97.1 87 18 108/58 96 11/02/16 00:00 96.7 87 18 124/69 99 11/02/16 00:00 82 11/01/16 20:50 Room Air 11/01/16 20:00 97.4 90 18 104/60 96 11/01/16 20:00 92 11/01/16 16:48 98.0 88 16 132/71 100 11/01/16 12:00 98.1 93 16 101/65 98 11/01/16 11/01/16 11/02/16 15:00 23:00 07:00 Intake Total 720 ml 490 ml 480 ml Output Total 95 ml 20 ml Balance 720 ml 395 ml 460 ml Intake Oral 720 ml 480 ml 480 ml Tube Irrigant 10 ml Drainage Total 95 ml 20 ml # Voids 3 2 # Bowel Movements 2 Result Diagram: 11/02/16 0626 11/02/16 0626 Imaging Last Impressions Chest X-Ray 10/25/16 0800 Signed Impressions: Service Date/Time: Tuesday, October 25, 2016 07:56 - CONCLUSION: Diffuse bilateral interstitial and air space pulmonary infiltrates. Jaycob Martin MD Abdomen X-Ray 10/22/16 0000 Signed Impressions: Service Date/Time: Saturday, October 22, 2016 11:55 - CONCLUSION: 1. Mildly distended loops of proximal jejunum in the left upper quadrant consistent with adynamic ileus noted on CT exam. Mario Cha MD Abdomen/Pelvis CT 10/21/16 1622 Signed Impressions: Service Date/Time: Friday, October 21, 2016 23:19 - CONCLUSION: 1. Distended jejunum and with a fairly gradual transition to decompressed ileum. Air and stool seen in the colon. I believe this likely represents proximal small bowel ileus rather than obstruction. Abdominal x-ray surveillance recommended. 2. Stomach is decompressed with a nasogastric tube. 3. Interim drainage of the left upper quadrant/perisplenic fluid collection. The fluid collection measures smaller in the interim. 4. Trace ascites and moderate anasarca. 5. Left greater than right basilar consolidation again noted. Josué Kaur MD Needle Aspiration CT 10/19/16 0000 Signed Impressions: Service Date/Time: Wednesday, October 19, 2016 12:35 - CONCLUSION: Uncomplicated drainage of a large fluid collection in the left upper quadrant. This appeared to predominantly represent old hemorrhage. Binh Jones MD Paracentesis 10/17/16 0000 Signed Impressions: Service Date/Time: Monday, October 17, 2016 14:05 - CONCLUSION: Uncomplicated CT Guided paracentesis revealing hemorrhagic ascites. Fernando Jones MD FACR Abdomen Biopsy CT 10/17/16 0000 Signed Impressions: Service Date/Time: Monday, October 17, 2016 11:32 - CONCLUSION: Uncomplicated CT guided biopsy possible peritoneal metastasis. Fernando Jones MD FACR Chest CT 10/16/16 0000 Signed Impressions: Service Date/Time: October 16:59 - CONCLUSION: 1. Huge complex cystic mass/collection within the left upper quadrant which occupies the expected region of the spleen and is incompletely evaluated on this examination. CT of the abdomen will be performed this same day and will allow complete evaluation of this lesion. 2. Bilbasilar patchiness (left worse than right) consistent with atelectasis and/or pneumonia. Clinical correlation is recommended. 3. Small left pleural effusion. 4. Ascites within the upper abdomen. 5. Degenerative changes throughout the thoracic spine. 6. Coronary artery calcifications. 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 In turn this lead to an outflow infarct of the spleen which eroded into the pseudocyst leading to a large abdominal mass/process. - pt had omental bx 10/17/16 which was non-diagnostic - abdominal aspirate cytology on 10/20/16 --> histiocytes and blood cells, but NO malignancy identified -Ileus of small bowel noted -anemia. mf. chronic illness - has had some rectal bleeding last few days felt hemorrhoid related. 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 ASX. echo nml LVF 10/29 - Pt with intraabdomen drain...monitor drain output ...drainage was slowing down...but now shows persistent output. will check with gen surg tomorrow if d/c home with [facility] to manage the drain and surgical f/u is possible. Pt would like this approach if ok. - diarrhea better. - pt now tolerating diet - continue PT - lovenox for DVT prophylaxis -diuresis for volume overload. monitor bmp. stop soon -Pt on incentive spirometer/ post abx for compressive atelectasis/pna ..He is now on room air General Surgery advises repeat CT abd to reassess for possible future repeat drainage. Repeat CT complete on 10/28 and fluid pockets noted. notified gen surg to review the films and of current drainage. (2) Volume overload Status: Acute Plan: see above (3) LLL pneumonia Status: Acute Plan: see above (4) Ileus Status: Acute Plan: - improved - pt received neostigmine while in the ICU - (5) Diarrhea Status: Acute Plan: see above (6) Alcoholism Status: Chronic Plan: - supportive care - Hugo Howard MD Nov 02, 2016 09:46
[2016-11-03] VITALS (18 sets, daily range): BP systolic 97–123; BP diastolic 54–68; PULSE 88–118; RESP 16–28; TEMP 95.1–98.6; O2SAT 85–99
[2016-11-03] MEDS: ONDANSETRON HCL 4 MG/2 ML VIAL IV PUSH PRN ×2 (02:23→18:43)
[2016-11-03 06:10] LABS: BICARBONATE 25.5 MEQ/L (21.0-32.0); POTASSIUM 3.9 MEQ/L (3.5-5.1)
[2016-11-03] MEDS: POTASSIUM CHLORIDE 25 MEQ EFFERVESCENT TAB PO SCH ×2 (08:04→21:40)
[2016-11-03] MEDS: FUROSEMIDE 40 MG TAB PO SCH (08:04)
[2016-11-03] MEDS: PANTOPRAZOLE SOD 40 MG DELAYED RELEASE TAB PO SCH (08:04)
[2016-11-03] MEDS: SODIUM CHLORIDE 0.9% 10 ML VIAL IRRIGATION SCH ×2 (09:00→16:00)
--- NOTE | 2016-11-03 11:18 | HHI.PR ---
Subjective Remarks No new complaints. Pt denies abdominal pain. Pt is eager for discharge to home. continues with hoarse voice. Objective Vitals Vital Signs Date Time Temp Pulse Resp B/P Pulse Ox O2 Delivery O2 Flow Rate FiO2 11/03/16 08:00 95.1 95 24 97/57 97 11/03/16 04:00 97.6 88 18 105/54 97 11/03/16 04:00 92 11/03/16 00:07 92 11/03/16 00:00 97.1 89 18 120/68 98 11/02/16 20:14 85 11/02/16 20:09 99 Room Air 11/02/16 20:00 97.0 84 18 121/68 99 11/02/16 16:00 98.2 87 18 107/63 100 11/02/16 12:00 98.1 87 16 117/65 98 11/02/16 11/02/16 11/03/16 15:00 23:00 07:00 Intake Total 730 ml 240 ml 240 ml Output Total 15 ml 15 ml Balance 730 ml 225 ml 225 ml Intake Oral 720 ml 240 ml 240 ml Tube Irrigant 10 ml Drainage Total 15 ml 15 ml # Voids 3 2 3 Result Diagram: 11/02/16 0626 11/03/16 0423 Imaging Last Impressions Chest X-Ray 10/29/16 0600 Signed Impressions: Service Date/Time: Saturday, October 29, 2016 04:43 - CONCLUSION: Stable severity bilateral parenchymal opacities, consolidative on the left and non-consolidative on the right. Filemon Arteaga MD Abdomen/Pelvis CT 10/28/16 0000 Signed Impressions: Service Date/Time: Friday, October 28, 2016 17:51 - CONCLUSION: 1. Suspected change of pancreatitis in the left upper quadrant with thickening of the pancreatic body and tail, lack of definition of theses structures, focal fluid collections seen anterior to the pancreatic tail and to the left of the stomach. 2. Fluid in the left upper quadrant with a drain in place and a suspected fluid collection in the posterior pararenal space abutting the anterior aspect of the lumbar spine musculature. 3. Areas of consolidation in the lung bases bilaterally being worse on the left. Diffuse processes including diffuse infection and/or edema needs to be considered. 4. Calcifications of the pancreatic head and uncinate process typically seen with chronic pancreatitis. The changes in the left upper quadrant are more typical of acute pancreatitis. 5. Dilatation of the small bowel in the left upper quadrant. This could reflect a localized ileus given the suspected change of pancreatitis in the left upper quadrant. Contrast is clearly seen to extend into the colon. Josué Albert MD Abdomen X-Ray 10/22/16 0000 Signed Impressions: Service Date/Time: Saturday, October 22, 2016 11:55 - CONCLUSION: 1. Mildly distended loops of proximal jejunum in the left upper quadrant consistent with adynamic ileus noted on CT exam. Mario Cha MD Needle Aspiration CT 10/19/16 0000 Signed Impressions: Service Date/Time: Wednesday, October 19, 2016 12:35 - CONCLUSION: Uncomplicated drainage of a large fluid collection in the left upper quadrant. This appeared to predominantly represent old hemorrhage. Binh Jones MD Paracentesis 10/17/16 0000 Signed Impressions: Service Date/Time: Monday, October 17, 2016 14:05 - CONCLUSION: Uncomplicated CT Guided paracentesis revealing hemorrhagic ascites. Fernando Jones MD FACR Abdomen Biopsy CT 10/17/16 0000 Signed Impressions: Service Date/Time: Monday, October 17, 2016 11:32 - CONCLUSION: Uncomplicated CT guided biopsy possible peritoneal metastasis. Fernando Jones MD FACR Chest CT 10/16/16 0000 Signed Impressions: Service Date/Time: October 16:59 - CONCLUSION: 1. Huge complex cystic mass/collection within the left upper quadrant which occupies the expected region of the spleen and is incompletely evaluated on this examination. CT of the abdomen will be performed this same day and will allow complete evaluation of this lesion. 2. Bilbasilar patchiness (left worse than right) consistent with atelectasis and/or pneumonia. Clinical correlation is recommended. 3. Small left pleural effusion. 4. Ascites within the upper abdomen. 5. Degenerative changes throughout the thoracic spine. 6. Coronary artery calcifications. Mahin Malin MD Objective Remarks GENERAL: This is a well-nourished, well-developed patient, in no apparent distress. CARDIOVASCULAR: Regular rate and rhythm without murmurs, gallops, or rubs. RESPIRATORY: Clear to auscultation. Breath sounds equal bilaterally. No wheezes , rales, or rhonchi. GASTROINTESTINAL: Abdomen soft, non-tender, nondistended. Normal active bowel sounds surgical drain at LUQ with sanguinous drainage MUSCULOSKELETAL: Extremities without clubbing, cyanosis, or edema. NEURO: Alert & Oriented x4 to person, place, time, situation. 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 In turn this lead to an outflow infarct of the spleen which eroded into the pseudocyst leading to a large abdominal mass/process. - pt had omental bx 10/17/16 which was non-diagnostic - abdominal aspirate cytology on 10/20/16 --> histiocytes and blood cells, but NO malignancy identified -Ileus of small bowel noted -anemia. mf. chronic illness - has had some rectal bleeding last few days felt hemorrhoid related. 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 ASX. echo nml LVF 10/29 - Pt with intraabdomen drain...monitor drain output ...drainage was slowing down...but now shows persistent output. will check with gen surg tomorrow if d/c home with [facility] to manage the drain and surgical f/u is possible. Pt would like this approach if ok. - diarrhea better. - pt now tolerating diet - continue PT - lovenox for DVT prophylaxis -diuresis for volume overload. monitor bmp. stop soon -Pt on incentive spirometer/ post abx for compressive atelectasis/pna ..He is now on room air General Surgery advises repeat CT abd to reassess for possible future repeat drainage. Repeat CT complete on 10/28 and fluid pockets noted. notified gen surg to review the films and of current drainage. 11/03/16 - Case reviewed with IR, recommended repeat CT abd/pelvis to reassess LUQ peripancreatic fluid - will d/w General Surgery (2) Volume overload Status: Acute Plan: see above (3) LLL pneumonia Status: Acute Plan: see above (4) Ileus Status: Acute Plan: - improved - pt received neostigmine while in the ICU - (5) Diarrhea Status: Acute Plan: see above (6) Alcoholism Status: Chronic Plan: - supportive care - Yfn Giron DO Nov 03, 2016 11:18
[2016-11-03] MEDS: HYDROmorphone HCL PF 1 MG/ML VIAL IV PUSH PRN (11:33)
--- NOTE | 2016-11-03 16:31 | RADRPT ---
EXAM DATE/TIME: 11/03/2016 15:41 [facility] COMPARISON: CT ABDOMEN & PELVIS W CONTRAST, October 16, 2016, 16:59. CT ABDOMEN & PELVIS W/O CONTRAST, October 21 7, 23:19. CT ABDOMEN & PELVIS W/O CONTRAST, October 28, 2016, 17:51. INDICATIONS : Reassess LUQ peripancreatic fluid co;;ection with abdominal drain. ORAL CONTRAST: Prescribed oral contrast ingested. RADIATION DOSE: 14.44 CTDIvol (mGy) MEDICAL HISTORY : Pancreatitis. SURGICAL HISTORY : None. ENCOUNTER: Subsequent ACUITY: 2 weeks PAIN SCALE: 5/10 LOCATION: Left upper quadrant TECHNIQUE: Volumetric scanning of the abdomen and pelvis was performed. Using automated exposure control and ad justment of the mA and/or kV according to patient size, radiation dose was kept as low as reasonably achievable to obtain optimal diagnostic quality images. DICOM format image data is available electro nically for review and comparison. FINDINGS: Previously placed left upper quadrant pigtail drainage catheter is stable in position. There has been interval enlargement of the left upper quadrant collection with large amount of increased density se en primarily on the lateral and inferior aspects of the collection consistent with interval hemorrhag e. This collection now measures 13.7 x 11.1 x 13.8 cm. This is in comparison to 8.9 x 5.1 x 7.9 cm on prior exam. Additionally, there has been interval development of a small amount of hemoperitoneum wi th a hematocrit level noted in the left deep pelvis. Lungs the lung bases demonstrate patchy airspace disease bilaterally. Liver, adrenal glands, and kidn eys are grossly stable. Gallbladder is mildly distended and contains faint increased density likely r eflecting sludge. Extensive pancreatic calcifications and changes of chronic pancreatitis are again n oted. Additional peripancreatic pseudocysts are grossly stable in size in comparison to prior exam. S cattered sigmoid diverticula. Previously described slightly prominent bowel loops in the left upper q uadrant are improved on the current exam but remain slightly more prominent than the remaining small bowel loops.. Bladder is moderately distended but otherwise grossly unremarkable. Remainder of the ex am is unchanged. CONCLUSION: 1. Stable left upper quadrant drainage catheter with apparent interval hemorrhage in the left upper q uadrant collection (presumed spleen) and associated small amount of hemoperitoneum. Collection now me asures 13.7 x 1.1 x 13.8 cm in comparison to 8.9 x 5.1 x 7.9 cm on recent exam. 2. Changes of pancreatitis with multiple additional pseudocysts in the left upper quadrant. 3. Redemonstration of bilateral lower lobe patchy airspace consolidation. 4. Improving localized ileus in the left upper quadrant. Mario Cha MD on November 03, 2016 at 15:58 Board Certified Radiologist. This report was verified electronically.
[2016-11-03] MEDS ORDERED: HEPARIN SODIUM - IV 10,000 UNITS/10 ML VIAL ONE (16:48)
[2016-11-03 16:56] LABS: AUTOMATED NEUTROPHIL # 19.4 TH/MM3 (1.8-7.7); BASOPHIL # 0.1 TH/MM3 (0-0.2); BASOPHIL % 0.3 % (0.0-2.0); EOSINOPHIL # 0.1 TH/MM3 (0-0.4); EOSINOPHIL % 0.2 % (0.0-4.0); HEMATOCRIT 23.2 % (39.0-51.0); LYMPH % 15.4 % (9.0-44.0); MEAN CELL VOLUME 82.9 FL (80.0-100.0); MEAN CORPUSCULAR HEMOGLOBIN 27.3 PG (27.0-34.0); MONO % 9.8 % (0.0-8.0); NEUT % 74.3 % (16.0-70.0); PLATELET COUNT 514 TH/MM3 (150-450); RED CELL DISTRIBUTION WIDTH 19.1 % (11.6-17.2); WHITE BLOOD COUNT 26.1 TH/MM3 (4.0-11.0)
[2016-11-03] MEDS: CHLORHEXIDINE 0.12% (ORAL KIT) 15 ML CUP MT SCH ×2 (17:00→20:30)
[2016-11-03 17:01] LABS: HEMO FLAGS AUTO DIFF
[2016-11-03] MEDS ORDERED: MIDAZOLAM HCL 5 MG/5 ML VIAL ONE (17:24)
[2016-11-03] MEDS ORDERED: fentaNYL CITRATE 250 MCG/5 ML AMP ONE (17:25)
[2016-11-03] MEDS ORDERED: VERAPAMIL HCL 5 MG/2 ML VIAL ONE (17:46)
[2016-11-03 17:58] LABS: BANDS 2 % (0-6); BASOPHILS 3 % (0-2); NEUTROPHIL # MANUAL DIFF 19.8 TH/MM3 (1.8-7.7); POLYS (SEG NEUTROPHILS) 74 % (16-70); WBC DIFF SAMPLE 100
[2016-11-03 17:59] LABS: OVALOCYTES 1+ (NORMAL); PLATELET ESTIMATE SMEAR HIGH (NORMAL); PLATELET MORPHOLOGY NORMAL (NORMAL); SCAN/DIFF FINAL DIFF MANUAL; SPHEROCYTES 1+ (NORMAL)
--- NOTE | 2016-11-03 19:57 | PD.RAD ---
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 coil and gelfoam subselective embolization with good result. See PACS Report for procedural detail/treatment Mario Cha MD Nov 03, 2016 19:57
[2016-11-03] MEDS ORDERED: IOHEXOL 350 MG/ML 10 ML VIAL (for RAD DIAG) ONE (20:02)
[2016-11-04] VITALS (18 sets, daily range): BP systolic 100–112; BP diastolic 55–65; PULSE 98–105; RESP 24–33; TEMP 97.7–99.2; O2SAT 93–100
[2016-11-04 06:08] LABS: AUTOMATED NEUTROPHIL # 16.1 TH/MM3 (1.8-7.7); BASOPHIL # 0.2 TH/MM3 (0-0.2); EOSINOPHIL # 0.2 TH/MM3 (0-0.4); HEMATOCRIT 23.2 % (39.0-51.0); LYMPH % 11.2 % (9.0-44.0); LYMPHOCYTE # 2.5 TH/MM3 (1.0-4.8); MEAN CELL VOLUME 81.6 FL (80.0-100.0); MEAN CORPUSCULAR HEMOGLOBIN 27.1 PG (27.0-34.0); MEAN CORPUSCULAR HGB CONC 33.2 % (32.0-36.0); MONO % 13.8 % (0.0-8.0); PLATELET COUNT 367 TH/MM3 (150-450); RED BLOOD COUNT 2.84 MIL/MM3 (4.50-5.90); RED CELL DISTRIBUTION WIDTH 17.2 % (11.6-17.2); WHITE BLOOD COUNT 22.1 TH/MM3 (4.0-11.0)
[2016-11-04 06:12] LABS: HEMO FLAGS AUTO DIFF
[2016-11-04 07:38] LABS: BANDS 8 % (0-6); BASOPHILS 1 % (0-2); NEUTROPHIL # MANUAL DIFF 18.1 TH/MM3 (1.8-7.7); POLYS (SEG NEUTROPHILS) 74 % (16-70); WBC DIFF SAMPLE 100
[2016-11-04 07:40] LABS: SCAN/DIFF FINAL DIFF MANUAL
[2016-11-04] MEDS: CHLORHEXIDINE 0.12% (ORAL KIT) 15 ML CUP MT SCH ×2 (08:00→21:01)
[2016-11-04] MEDS: POTASSIUM CHLORIDE 25 MEQ EFFERVESCENT TAB PO SCH ×2 (08:37→21:01)
[2016-11-04] MEDS: ONDANSETRON HCL 4 MG/2 ML VIAL IV PUSH PRN (08:38)
[2016-11-04] MEDS: PANTOPRAZOLE SOD 40 MG DELAYED RELEASE TAB PO SCH (08:38)
[2016-11-04] MEDS: FUROSEMIDE 40 MG TAB PO SCH (08:41)
[2016-11-04] MEDS: HYDROmorphone HCL PF 1 MG/ML VIAL IV PUSH PRN (08:41)
[2016-11-04] MEDS: ENOXAPARIN SODIUM 40 MG/0.4 ML SYRINGE SQ SCH (08:42)
[2016-11-04] MEDS: SODIUM CHLORIDE 0.9% 10 ML VIAL IRRIGATION SCH ×2 (09:00→16:00)
[2016-11-04] MEDS ORDERED: FUROSEMIDE 20 MG/2 ML VIAL IV ONE (14:00)
[2016-11-04] MEDS ORDERED: SODIUM CHLOR 0.9% 250 ML INJ 250 ML IV ONE (14:00)
--- NOTE | 2016-11-04 14:14 | HHI.PR ---
Subjective Remarks No new complaints. Pt is tolerating PO intake. No n/v/d. Objective Vitals Vital Signs Date Time Temp Pulse Resp B/P Pulse Ox O2 Delivery O2 Flow Rate FiO2 11/04/16 12:00 99.2 98 30 103/58 96 11/04/16 09:11 17 11/04/16 09:07 94 Nasal Cannula 2.00 11/04/16 08:00 98.1 104 26 112/56 94 11/04/16 07:00 96 Nasal Cannula 2.00 11/04/16 07:00 102 11/04/16 04:00 98.4 104 28 108/57 93 11/04/16 03:00 98.4 104 28 108/57 93 11/04/16 02:00 97.7 102 26 100/55 94 11/04/16 01:00 98.0 105 28 102/56 95 11/04/16 00:00 97.8 102 26 110/58 100 11/04/16 00:00 97.9 102 26 110/58 100 11/03/16 23:30 98.6 97 22 105/58 94 11/03/16 23:00 98.6 100 19 107/62 94 11/03/16 22:30 98.5 100 25 107/61 99 11/03/16 22:00 97.8 100 28 112/59 99 11/03/16 22:00 98.5 100 28 112/59 99 11/03/16 21:30 98.0 101 28 107/58 98 11/03/16 21:15 98.0 99 28 103/60 96 11/03/16 21:00 97.8 99 28 117/62 96 11/03/16 20:45 97.9 99 24 117/62 95 11/03/16 20:45 97.9 99 25 117/62 95 11/03/16 20:30 97.9 102 28 123/61 94 11/03/16 20:30 97.9 102 28 123/61 94 11/03/16 20:30 102 11/03/16 20:30 94 Nasal Cannula 2.00 11/03/16 17:10 97.0 117 20 100/58 85 11/03/16 17:05 Nasal Cannula 4.00 11/03/16 16:37 96.4 115 18 102/59 99 11/03/16 16:26 97.7 118 16 100/56 98 11/03/16 11/03/16 11/04/16 15:00 23:00 07:00 Intake Total 480 ml 740 ml 300 ml Output Total 500 ml 570 ml 820 ml Balance -20 ml 170 ml -520 ml Intake Oral 480 ml 240 ml 300 ml Packed Cells 500 ml Output Urine Total 500 ml 550 ml 750 ml Drainage Total 20 ml 70 ml Result Diagram: 11/04/16 0520 11/03/16 0423 Imaging Last Impressions Abdomen/Pelvis CT 11/03/16 0000 Signed Impressions: Service Date/Time: Thursday, November 03, 2016 15:41 - CONCLUSION: 1. Stable left upper quadrant drainage catheter with apparent interval hemorrhage in the left upper quadrant collection (presumed spleen) and associated small amount of hemoperitoneum. Collection now measures 13.7 x 1.1 x 13.8 cm in comparison to 8.9 x 5.1 x 7.9 cm on recent exam. 2. Changes of pancreatitis with multiple additional pseudocysts in the left upper quadrant. 3. Redemonstration of bilateral lower lobe patchy airspace consolidation. 4. Improving localized ileus in the left upper quadrant. Mario Cah MD Chest X-Ray 10/29/16 0600 Signed Impressions: Service Date/Time: Saturday, October 29, 2016 04:43 - CONCLUSION: Stable severity bilateral parenchymal opacities, consolidative on the left and non-consolidative on the right. Filemon Arteaga MD Abdomen X-Ray 10/22/16 0000 Signed Impressions: Service Date/Time: Saturday, October 22, 2016 11:55 - CONCLUSION: 1. Mildly distended loops of proximal jejunum in the left upper quadrant consistent with adynamic ileus noted on CT exam. Mario Cha MD Needle Aspiration CT 10/19/16 0000 Signed Impressions: Service Date/Time: Wednesday, October 19, 2016 12:35 - CONCLUSION: Uncomplicated drainage of a large fluid collection in the left upper quadrant. This appeared to predominantly represent old hemorrhage. Binh Jones MD Paracentesis 10/17/16 0000 Signed Impressions: Service Date/Time: Monday, October 17, 2016 14:05 - CONCLUSION: Uncomplicated CT Guided paracentesis revealing hemorrhagic ascites. Fernando Jones MD FACR Abdomen Biopsy CT 10/17/16 0000 Signed Impressions: Service Date/Time: Monday, October 17, 2016 11:32 - CONCLUSION: Uncomplicated CT guided biopsy possible peritoneal metastasis. Fernando Jones MD FACR Chest CT 10/16/16 0000 Signed Impressions: Service Date/Time: October 16:59 - CONCLUSION: 1. Huge complex cystic mass/collection within the left upper quadrant which occupies the expected region of the spleen and is incompletely evaluated on this examination. CT of the abdomen will be performed this same day and will allow complete evaluation of this lesion. 2. Bilbasilar patchiness (left worse than right) consistent with atelectasis and/or pneumonia. Clinical correlation is recommended. 3. Small left pleural effusion. 4. Ascites within the upper abdomen. 5. Degenerative changes throughout the thoracic spine. 6. Coronary artery calcifications. Mahin Malin MD Objective Remarks GENERAL: This is a well-nourished, well-developed patient, in no apparent distress. CARDIOVASCULAR: Regular rate and rhythm without murmurs, gallops, or rubs. RESPIRATORY: Clear to auscultation. Breath sounds equal bilaterally. No wheezes , rales, or rhonchi. GASTROINTESTINAL: Abdomen soft, non-tender, nondistended. Normal active bowel sounds surgical drain at LUQ with sanguinous drainage MUSCULOSKELETAL: Extremities without clubbing, cyanosis, or edema. NEURO: Alert & Oriented x4 to person, place, time, situation. 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 In turn this lead to an outflow infarct of the spleen which eroded into the pseudocyst leading to a large abdominal mass/process. - pt had omental bx 10/17/16 which was non-diagnostic - abdominal aspirate cytology on 10/20/16 --> histiocytes and blood cells, but NO malignancy identified - CT abd/pelvis (11/03/16) 1. Stable left upper quadrant drainage catheter with apparent interval hemorrhage in the left upper quadrant collection (presumed spleen) and associated small amount of hemoperitoneum. Collection now measures 13.7 x 1.1 x 13.8 cm in comparison to 8.9 x 5.1 x 7.9 cm on recent exam. 2. Changes of pancreatitis with multiple additional pseudocysts in the left upper quadrant. 3. Redemonstration of bilateral lower lobe patchy airspace consolidation. 4. Improving localized ileus in the left upper quadrant. - Ileus of small bowel noted, resolved - anemia. mf. 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 ASX. echo nml LVF 10/29 - as above: Pt had repeat CT abd/pelvis (11/03/16) showing interval hemorrhage in the LUQ Pt underwent splenic embolization with IR, Dr. 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 Reyes (11/04/16). - PO lasix - IS - Case d/w Dr Reyes (11/04/16) - (2) Volume overload Status: Acute Plan: see above (3) LLL pneumonia Status: Acute Plan: see above (4) Ileus Status: Acute Plan: - improved - pt received neostigmine while in the ICU - (5) Diarrhea Status: Acute Plan: see above (6) Alcoholism Status: Chronic Plan: - supportive care - Yfn Giron DO Nov 04, 2016 14:14
--- NOTE | 2016-11-04 14:19 | HHI.PR ---
Subjective Subjective Notes He is a little sore in the groin. Mild abdominal pain. He is tolerating diet. Objective Vitals/I&O Vital Signs Date Time Temp Pulse Resp B/P Pulse Ox O2 Delivery O2 Flow Rate FiO2 11/04/16 12:00 99.2 98 30 103/58 96 11/04/16 09:07 Nasal Cannula 2.00 10/31/16 09:18 21 Labs Laboratory Tests Test 11/03/16 11/03/16 11/04/16 16:28 18:00 05:20 White Blood Count 26.1 22.1 Red Blood Count 2.80 2.84 Hemoglobin 7.7 7.7 Hematocrit 23.2 23.2 Mean Corpuscular Volume 82.9 81.6 Mean Corpuscular Hemoglobin 27.3 27.1 Mean Corpuscular Hemoglobin 33.0 33.2 Concent Red Cell Distribution Width 19.1 17.2 Platelet Count 514 367 Mean Platelet Volume 7.9 8.0 Neutrophils (%) (Auto) 74.3 73.0 Lymphocytes (%) (Auto) 15.4 11.2 Monocytes (%) (Auto) 9.8 13.8 Eosinophils (%) (Auto) 0.2 1.0 Basophils (%) (Auto) 0.3 1.0 Neutrophils # (Auto) 19.4 16.1 Lymphocytes # (Auto) 4.0 2.5 Monocytes # (Auto) 2.6 3.1 Eosinophils # (Auto) 0.1 0.2 Basophils # (Auto) 0.1 0.2 CBC Comment AUTO DIFF AUTO DIFF Differential Total Cells 100 100 Counted Neutrophils % (Manual) 74 74 Band Neutrophils % 2 8 Lymphocytes % 12 9 Monocytes % 9 8 Basophils % 3 1 Neutrophils # (Manual) 19.8 18.1 Differential Comment FINAL DIFF FINAL DIFF MANUAL MANUAL Platelet Estimate HIGH Platelet Morphology Comment NORMAL Spherocytes 1+ Ovalocytes 1+ Blood Type O POSITIVE Antibody Screen NEGATIVE Crossmatch Leukocyte-Reduced Red Blood Cells Blood Bank Comment Narrative Exam NAD Abd: distended, mild ttp worse luq, accordion drain ss output 90cc/24h A/P Assessment and Plan 56 yo M with large pancreatic pseudocyst. CT yesterday showed hemoperitoneum as well as increased size of LUQ cyst. Angiogram performed by IR showing large splenic artery pseudoaneurysm which was embolized. Today he is stable and tolerating diet. Recommend to continue current treatment. Eric,Sami MD Nov 04, 2016 14:19
[2016-11-04 22:35] LABS: HEMATOCRIT 29.7 % (39.0-51.0); REVIEW FLAG FINAL
[2016-11-05] VITALS (9 sets, daily range): BP systolic 9–115; BP diastolic 55–67; PULSE 92–96; RESP 22–31; TEMP 97.5–99.3; O2SAT 91–95
[2016-11-05] MEDS: ONDANSETRON HCL 4 MG/2 ML VIAL IV PUSH PRN (08:28)
[2016-11-05] MEDS: FUROSEMIDE 40 MG TAB PO SCH (08:32)
[2016-11-05] MEDS: PANTOPRAZOLE SOD 40 MG DELAYED RELEASE TAB PO SCH (08:32)
[2016-11-05] MEDS: POTASSIUM CHLORIDE 25 MEQ EFFERVESCENT TAB PO SCH ×2 (08:33→20:10)
[2016-11-05] MEDS: CHLORHEXIDINE 0.12% (ORAL KIT) 15 ML CUP MT SCH ×2 (08:33→20:10)
[2016-11-05] MEDS: SODIUM CHLORIDE 0.9% 10 ML VIAL IRRIGATION SCH ×2 (08:33→16:00)
[2016-11-05] MEDS: ENOXAPARIN SODIUM 40 MG/0.4 ML SYRINGE SQ SCH (08:34)
--- NOTE | 2016-11-05 09:14 | RADRPT ---
EXAM DATE/TIME: 11/03/2016 16:41 [facility] COMPARISON: No previous studies available for comparison. INDICATIONS : Acute splenic hemorrhage with lack of difficult to obtain peripheral IV access. MEDICAL HISTORY : Pancreatitis PAD SURGICAL HISTORY : None ENCOUNTER: Initial ACUITY: 1 day PAIN SCORE: 5/10 LOCATION: Left abdomen FLUORO TIME: 0.2 minutes IMAGE SERIES: 0 ACCESS: Right internal jugular vein DEVICE(S): 1.) 7 Welsh triple lumen 20 cm Arrow central line PROCEDURE : 1. Ultrasound guided venipuncture. 2. Fluoroscopic guidance. 3. Central line placement. The risks, benefits and alternatives to the procedure were explained and verbal and written consent w as obtained. The site was prepped in sterile fashion. Full sterile technique was used, including ca p, mask, sterile gloves and gown and a large sterile sheet. Hand hygiene and 2% chlorhexidine prep w as utilized per protocol for cutaneous antisepsis with appropriate dry time for site. The skin and subcutaneous tissues were infiltrated with local anesthetic solution. A suitable site a homero the vein was selected with ultrasound guidance. A small incision was made. The vein was access ed under direct ultrasound visualization using the micropuncture technique. The micropuncture set wa s exchanged for a 0.035 wire. The tract was dilated. The catheter was advanced into position. The catheter was fixed in place with suture and a sterile dressing was applied. Final catheter position w as confirmed with fluoroscopy once patient was transferred to fluoroscopy table. The patient tolerated the procedure well and there were no complications. CONCLUSION: Uncomplicated line placement as above. Mario Cha MD on November 05, 2016 at 9:09 Board Certified Radiologist. This report was verified electronically.
--- NOTE | 2016-11-05 09:31 | RADRPT ---
EXAM DATE/TIME: 11/03/2016 16:41 [facility] COMPARISON: No previous studies available for comparison. INDICATIONS : History of severe pancreatitis with suspected splenic involvement and large perisplenic hematoma, pos sibly infected. Patient status post pectineus drainage catheter placement. CT examination today demon strates a acute hemorrhage in the splenic bed and hemoperitoneum. Patient is now symptomatic and is s tatus post syncopal episode. Angiography with possible intervention has been requested. MEDICAL HISTORY : Pancreatitis PAD SURGICAL HISTORY : None ENCOUNTER: Initial ACUITY: 1 day PAIN SCORE: 5/10 LOCATION: Left abdomen FLUORO TIME: 32.2 minutes IMAGE SERIES: 11 ACCESS SITE: Left Radial artery SEDATION TIME: minutes CONTRAST: 1.) 60 cc Omnipaque (iohexol) 350 MEDICATION(S): 1.) 0.5 mg midazolam (Versed) IV 2.) 25 mcg fentanyl (Sublimaze) IV 3.) 4 mg ondansetron (Zofran) IV DEVICE(S): 1.) Splenic artery 10x20 interlock embolic coil(s) 2.) Splenic artery 3x2 tornado embolic coil(s) 3.) Splenic artery 3x2 tornado embolic coil(s) 4.) Splenic artery 5x8 interlock embolic coil(s) 5.) Splenic artery Gelfoam PROCEDURE : 1. Ultrasound-guided puncture of the left radial artery. 2. Conscious sedation with continuous EKG and Oximetry monitoring. 3. Selective catheter placement in the celiac artery celiac angiography 4. Selective catheterization in the splenic artery with subselective angiography. 5. Subselective catheter placement in a third order branch of the splenic artery with subselective a ngiography 6. Coil embolization of third order branch of the splenic artery 7. Gelfoam embolization of second order branch of the splenic artery The risks, benefits and alternatives to the procedure were explained and verbal and written consent w as obtained. The site was prepped in sterile fashion. Full sterile technique was used, including ca p, mask, sterile gloves and gown and a large sterile sheet. Hand hygiene and 2% chlorhexidine and/or betadine/alcohol prep was utilized per protocol for cutaneous antisepsis. The skin and subcutaneous tissues were infiltrated with local anesthetic solution. The patient passed a Barbeau test on the left side. Ultrasound examination of the left renal artery d emonstrated a patent left radial artery. Single image was obtained and placed in PACS archive. Microp uncture needle was advanced into the left radial artery under direct ultrasound guidance and exchange d for slim 6 Bolivian sheath. 4 Bolivian glide catheter was then advanced into the celiac artery and chanel ac angiography was performed. This confirmed a large pseudoaneurysm from a distal superior branch of the splenic artery. Catheter was then further advanced into the proximal splenic artery and angiograp hy was performed again confirming the findings. Renegade microcatheter and Fathom 16 wire were then a dvanced into the superior segmental branch of the splenic artery and angiography was performed confir jes the findings. Following multiple manipulations with a combination of wires (due to marked tortuo sity in the proximal third order branch) the microcatheter was successfully advanced to the pseudoane urysm origin. Angiography was performed confirming position. Next, a 10 x 20 mm interlock coil was de ployed into the pseudoaneurysm but could not be sufficiently secured at the origin. Therefore, cathet er was retracted slightly more proximally and two additional 3 x 2 mm Vortex coils were deployed foll owed by a 5 x 80mm Interlock coil. Catheter was then retracted into the second order branch and small amount of Gelfoam was administered. Followup angiography demonstrated stasis of flow in the second o rder superior splenic branches with patent flow in the remaining non-embolized branches. Therefore, w ires and catheters were removed. Hemostasis was obtained with a TR vent device. Conscious sedation was performed with the prescribed dosages and duration as above in the presence of an independent trained radiology nurse to assist in the monitoring of the patient. EKG and oximetry remained stable throughout the procedure. CONCLUSION: 1. 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 Technically successful coil and limited Gelfoam subselective embolizati on, as above. Mario Cha MD on November 05, 2016 at 9:12 Board Certified Radiologist. This report was verified electronically.
[2016-11-05 11:16] LABS: HEMATOCRIT 29.9 % (39.0-51.0); MEAN CELL VOLUME 84.7 FL (80.0-100.0); MEAN CORPUSCULAR HEMOGLOBIN 26.8 PG (27.0-34.0); MEAN CORPUSCULAR HGB CONC 31.6 % (32.0-36.0); PLATELET COUNT 361 TH/MM3 (150-450); RED BLOOD COUNT 3.54 MIL/MM3 (4.50-5.90); RED CELL DISTRIBUTION WIDTH 17.1 % (11.6-17.2); REVIEW FLAG FINAL; WHITE BLOOD COUNT 21.9 TH/MM3 (4.0-11.0)
[2016-11-05 11:34] LABS: BICARBONATE 26.6 MEQ/L (21.0-32.0); POTASSIUM 3.8 MEQ/L (3.5-5.1)
[2016-11-05] MEDS: HYDROmorphone HCL PF 1 MG/ML VIAL IV PUSH PRN (12:00)
--- NOTE | 2016-11-05 17:40 | HHI.PR ---
Subjective Remarks Pt feels SOB today and was coughing last night. Afebrile Noted to be slightly tachypneic on sone of his recorded vitals Objective Vitals Vital Signs Date Time Temp Pulse Resp B/P Pulse Ox O2 Delivery O2 Flow Rate FiO2 11/05/16 16:00 99.3 92 30 112/58 94 11/05/16 12:00 98.3 96 22 113/67 94 11/05/16 08:00 97.5 94 28 115/66 95 11/05/16 07:00 93 Room Air 11/05/16 07:00 94 11/05/16 04:00 97.6 96 26 101/55 94 11/05/16 00:00 98.7 96 31 9/59 91 11/04/16 20:28 97 21 11/04/16 20:00 98.5 100 33 112/60 93 11/04/16 19:00 92 Room Air 11/04/16 19:00 102 11/04/16 11/04/16 11/05/16 15:00 23:00 07:00 Intake Total 720 ml 360 ml 480 ml Output Total 70 ml 1010 ml 735 ml Balance 650 ml -650 ml -255 ml Intake Oral 720 ml 360 ml 480 ml Output Urine Total 950 ml 700 ml Drainage Total 70 ml 60 ml 35 ml # Voids 2 1 # Bowel Movements 0 0 Result Diagram: 11/05/16 1041 11/05/16 1041 Other Results Laboratory Tests Test 11/03/16 11/04/16 11/04/16 11/04/16 18:00 05:20 14:12 22:15 Blood Type O POSITIVE O POSITIVE Antibody Screen NEGATIVE Crossmatch Leukocyte-Reduced Leukocyte-Reduced Red Blood Red Blood Cells Cells Blood Bank Comment White Blood Count 22.1 TH/MM3 Red Blood Count 2.84 MIL/MM3 Hemoglobin 7.7 GM/DL 10.1 GM/DL Hematocrit 23.2 % 29.7 % Mean Corpuscular Volume 81.6 FL Mean Corpuscular Hemoglobin 27.1 PG Mean Corpuscular Hemoglobin 33.2 % Concent Red Cell Distribution Width 17.2 % Platelet Count 367 TH/MM3 Mean Platelet Volume 8.0 FL Neutrophils (%) (Auto) 73.0 % Lymphocytes (%) (Auto) 11.2 % Monocytes (%) (Auto) 13.8 % Eosinophils (%) (Auto) 1.0 % Basophils (%) (Auto) 1.0 % Neutrophils # (Auto) 16.1 TH/MM3 Lymphocytes # (Auto) 2.5 TH/MM3 Monocytes # (Auto) 3.1 TH/MM3 Eosinophils # (Auto) 0.2 TH/MM3 Basophils # (Auto) 0.2 TH/MM3 CBC Comment AUTO DIFF Differential Total Cells 100 Counted Neutrophils % (Manual) 74 % Band Neutrophils % 8 % Lymphocytes % 9 % Monocytes % 8 % Basophils % 1 % Neutrophils # (Manual) 18.1 TH/MM3 Differential Comment FINAL DIFF MANUAL Test 11/05/16 10:41 White Blood Count 21.9 TH/MM3 Red Blood Count 3.54 MIL/MM3 Hemoglobin 9.5 GM/DL Hematocrit 29.9 % Mean Corpuscular Volume 84.7 FL Mean Corpuscular Hemoglobin 26.8 PG Mean Corpuscular Hemoglobin 31.6 % Concent Red Cell Distribution Width 17.1 % Platelet Count 361 TH/MM3 Mean Platelet Volume 8.0 FL Sodium Level 132 MEQ/L Potassium Level 3.8 MEQ/L Chloride Level 97 MEQ/L Carbon Dioxide Level 26.6 MEQ/L Anion Gap 8 MEQ/L Blood Urea Nitrogen 14 MG/DL Creatinine 0.99 MG/DL Estimat Glomerular Filtration 94 ML/MIN Rate Random Glucose 165 MG/DL Calcium Level 8.5 MG/DL Imaging Last Impressions Abdomen/Pelvis CT 11/03/16 0000 Signed Impressions: Service Date/Time: Thursday, November 03, 2016 15:41 - CONCLUSION: 1. Stable left upper quadrant drainage catheter with apparent interval hemorrhage in the left upper quadrant collection (presumed spleen) and associated small amount of hemoperitoneum. Collection now measures 13.7 x 1.1 x 13.8 cm in comparison to 8.9 x 5.1 x 7.9 cm on recent exam. 2. Changes of pancreatitis with multiple additional pseudocysts in the left upper quadrant. 3. Redemonstration of bilateral lower lobe patchy airspace consolidation. 4. Improving localized ileus in the left upper quadrant. Mario Cha MD Chest X-Ray 10/29/16 0600 Signed Impressions: Service Date/Time: Saturday, October 29, 2016 04:43 - CONCLUSION: Stable severity bilateral parenchymal opacities, consolidative on the left and non-consolidative on the right. Filemon Arteaga MD Abdomen X-Ray 10/22/16 0000 Signed Impressions: Service Date/Time: Saturday, October 22, 2016 11:55 - CONCLUSION: 1. Mildly distended loops of proximal jejunum in the left upper quadrant consistent with adynamic ileus noted on CT exam. Mario Cha MD Needle Aspiration CT 10/19/16 0000 Signed Impressions: Service Date/Time: Wednesday, October 19, 2016 12:35 - CONCLUSION: Uncomplicated drainage of a large fluid collection in the left upper quadrant. This appeared to predominantly represent old hemorrhage. Binh Jones MD Paracentesis 10/17/16 0000 Signed Impressions: Service Date/Time: Monday, October 17, 2016 14:05 - CONCLUSION: Uncomplicated CT Guided paracentesis revealing hemorrhagic ascites. Fernando Jones MD FACR Abdomen Biopsy CT 10/17/16 0000 Signed Impressions: Service Date/Time: Monday, October 17, 2016 11:32 - CONCLUSION: Uncomplicated CT guided biopsy possible peritoneal metastasis. Fernando Jones MD FACR Chest CT 10/16/16 0000 Signed Impressions: Service Date/Time: October 16:59 - CONCLUSION: 1. Huge complex cystic mass/collection within the left upper quadrant which occupies the expected region of the spleen and is incompletely evaluated on this examination. CT of the abdomen will be performed this same day and will allow complete evaluation of this lesion. 2. Bilbasilar patchiness (left worse than right) consistent with atelectasis and/or pneumonia. Clinical correlation is recommended. 3. Small left pleural effusion. 4. Ascites within the upper abdomen. 5. Degenerative changes throughout the thoracic spine. 6. Coronary artery calcifications. Mahin Malin MD Objective Remarks General: NAD, AAOX3 Cardiac: Regular. Chest: CTA. ABD: +BS, soft, surgical drain at LUQ with sanguinous drainage Ext: No edema. 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 In turn this lead to an outflow infarct of the spleen which eroded into the pseudocyst leading to a large abdominal mass/process. - pt had omental bx 10/17/16 which was non-diagnostic - abdominal aspirate cytology on 10/20/16 --> histiocytes and blood cells, but NO malignancy identified - Repeat CT abd/pelvis (11/03/16) --> Stable left upper quadrant drainage catheter with apparent interval hemorrhage in the left upper quadrant collection (presumed spleen) and associated small amount of hemoperitoneum. Collection now measures 13.7 x 1.1 x 13.8 cm in comparison to 8.9 x 5.1 x 7.9 cm on recent exam. Changes of pancreatitis with multiple additional pseudocysts in the left upper quadrant. Redemonstration of bilateral lower lobe patchy airspace consolidation. Improving localized ileus in the left upper quadrant. - Pt underwent splenic embolization with IR, Dr. 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 Repeat labs today are 9.5/29.9 - Pt tolerating diet - continue PT - Lovenox for DVT prophylaxis - Check CXR as respiratory rate is increased - Monitor labs and clinical status closely (2) Wenckebach second degree AV block Status: Acute Plan: - Developed 2nd degree AVB, Wenckebach type 1. - ASX. - 2D Echo nml LVF 10/29 (3) Volume overload Status: Acute Plan: see above (4) LLL pneumonia Status: Acute Plan: see above (5) Ileus Status: Acute Plan: - improved - pt received neostigmine while in the ICU - (6) Diarrhea Status: Acute Plan: see above (7) Alcoholism Status: Chronic Plan: - supportive care - Assessment and Plan Patient examined. Assessment and plan formulated with Ave Sims PA-C. I agree with the above. Ave Sims Nov 05, 2016 17:40 Yfn Giron DO Nov 07, 2016 10:33 Ave Sims Nov 05, 2016 17:40
--- NOTE | 2016-11-05 19:26 | RADRPT ---
EXAM DATE/TIME: 11/05/2016 18:54 [facility] COMPARISON: No previous studies available for comparison. INDICATIONS : Pneumonia. MEDICAL HISTORY : Pancreatitis. SURGICAL HISTORY : None. ENCOUNTER: Subsequent ACUITY: 1 day PAIN SCORE: 0/10 LOCATION: chest FINDINGS: Compared with October 29 there is development of a small left effusion and a slight increase in left bas ilar airspace disease. This is drainage catheter in the left upper quadrant. Minimal right basal atel ectasis. Right central line near cavoatrial junction. No pneumothorax. CONCLUSION: 1. Drainage catheter in left upper quadrant. Small left effusion with left basilar airspace disease, increased since October 29. Kiran Harvey MD on November 05, 2016 at 19:19 Board Certified Radiologist. This report was verified electronically.
[2016-11-05] MEDS: MAGNESIUM HYDROXIDE SUSP 30 ML CUP PO PRN (20:10)
[2016-11-06] VITALS (11 sets, daily range): BP systolic 112–149; BP diastolic 62–81; PULSE 75–96; RESP 18–33; TEMP 98.1–99.1; O2SAT 92–99
[2016-11-06 04:01] LABS: HEMATOCRIT 26.5 % (39.0-51.0); MEAN CELL VOLUME 83.5 FL (80.0-100.0); MEAN CORPUSCULAR HEMOGLOBIN 27.5 PG (27.0-34.0); MEAN CORPUSCULAR HGB CONC 32.9 % (32.0-36.0); PLATELET COUNT 352 TH/MM3 (150-450); RED BLOOD COUNT 3.17 MIL/MM3 (4.50-5.90); RED CELL DISTRIBUTION WIDTH 16.8 % (11.6-17.2); WHITE BLOOD COUNT 19.3 TH/MM3 (4.0-11.0)
[2016-11-06 04:12] LABS: HEMO FLAGS AUTO DIFF
[2016-11-06 04:33] LABS: BICARBONATE 28.9 MEQ/L (21.0-32.0); MAGNESIUM 1.7 MG/DL (1.5-2.5); POTASSIUM 3.9 MEQ/L (3.5-5.1)
[2016-11-06 06:34] LABS: BANDS 1 % (0-6); BASOPHILS 1 % (0-2); EOSINOPHILS 7 % (0-4); METAMYELOCYTES 1 % (0-1); NEUTROPHIL # MANUAL DIFF 14.7 TH/MM3 (1.8-7.7); POLYS (SEG NEUTROPHILS) 74 % (16-70); WBC DIFF SAMPLE 100
[2016-11-06 06:41] LABS: PLATELET ESTIMATE SMEAR NORMAL (NORMAL); PLATELET MORPHOLOGY NORMAL (NORMAL); SCAN/DIFF FINAL DIFF MANUAL
[2016-11-06] MEDS: FUROSEMIDE 40 MG TAB PO SCH (08:42)
[2016-11-06] MEDS: ENOXAPARIN SODIUM 40 MG/0.4 ML SYRINGE SQ SCH (08:44)
[2016-11-06] MEDS: PANTOPRAZOLE SOD 40 MG DELAYED RELEASE TAB PO SCH (08:44)
[2016-11-06] MEDS: CHLORHEXIDINE 0.12% (ORAL KIT) 15 ML CUP MT SCH ×2 (08:45→19:20)
[2016-11-06] MEDS: POTASSIUM CHLORIDE 25 MEQ EFFERVESCENT TAB PO SCH ×2 (08:45→22:28)
[2016-11-06] MEDS: SODIUM CHLORIDE 0.9% 10 ML VIAL IRRIGATION SCH ×2 (09:00→16:00)
--- NOTE | 2016-11-06 15:49 | HHI.PR ---
Subjective Remarks No new complaints. Objective Vitals Vital Signs Date Time Temp Pulse Resp B/P Pulse Ox O2 Delivery O2 Flow Rate FiO2 11/06/16 12:00 98.5 90 33 121/69 94 11/06/16 09:03 94 21 11/06/16 08:00 98.5 88 30 112/62 95 11/06/16 07:00 95 Room Air 11/06/16 07:00 92 11/06/16 04:00 98.9 95 23 118/64 94 11/06/16 00:00 98.6 96 24 123/71 92 11/05/16 20:00 99.0 95 26 114/57 94 11/05/16 19:53 95 11/05/16 19:00 95 Room Air 11/05/16 19:00 95 11/05/16 16:00 99.3 92 30 112/58 94 11/05/16 11/05/16 11/06/16 15:00 23:00 07:00 Intake Total 960 ml 600 ml 360 ml Output Total 60 ml 35 ml 630 ml Balance 900 ml 565 ml -270 ml Intake Oral 960 ml 600 ml 360 ml Output Urine Total 600 ml Drainage Total 60 ml 35 ml 30 ml # Voids 5 3 1 # Bowel Movements 0 0 0 Result Diagram: 11/06/16 0349 11/06/16 0349 Imaging Last Impressions Abdomen/Pelvis CT 11/03/16 0000 Signed Impressions: Service Date/Time: Thursday, November 03, 2016 15:41 - CONCLUSION: 1. Stable left upper quadrant drainage catheter with apparent interval hemorrhage in the left upper quadrant collection (presumed spleen) and associated small amount of hemoperitoneum. Collection now measures 13.7 x 1.1 x 13.8 cm in comparison to 8.9 x 5.1 x 7.9 cm on recent exam. 2. Changes of pancreatitis with multiple additional pseudocysts in the left upper quadrant. 3. Redemonstration of bilateral lower lobe patchy airspace consolidation. 4. Improving localized ileus in the left upper quadrant. Mario Cha MD Chest X-Ray 10/29/16 0600 Signed Impressions: Service Date/Time: Saturday, October 29, 2016 04:43 - CONCLUSION: Stable severity bilateral parenchymal opacities, consolidative on the left and non-consolidative on the right. Filemon Arteaga MD Abdomen X-Ray 10/22/16 0000 Signed Impressions: Service Date/Time: Saturday, October 22, 2016 11:55 - CONCLUSION: 1. Mildly distended loops of proximal jejunum in the left upper quadrant consistent with adynamic ileus noted on CT exam. Mario Cha MD Needle Aspiration CT 10/19/16 0000 Signed Impressions: Service Date/Time: Wednesday, October 19, 2016 12:35 - CONCLUSION: Uncomplicated drainage of a large fluid collection in the left upper quadrant. This appeared to predominantly represent old hemorrhage. Binh Jones MD Paracentesis 10/17/16 0000 Signed Impressions: Service Date/Time: Monday, October 17, 2016 14:05 - CONCLUSION: Uncomplicated CT Guided paracentesis revealing hemorrhagic ascites. Fernando Jones MD FACR Abdomen Biopsy CT 10/17/16 0000 Signed Impressions: Service Date/Time: Monday, October 17, 2016 11:32 - CONCLUSION: Uncomplicated CT guided biopsy possible peritoneal metastasis. Fernando Jones MD FACR Chest CT 10/16/16 0000 Signed Impressions: Service Date/Time: October 16:59 - CONCLUSION: 1. Huge complex cystic mass/collection within the left upper quadrant which occupies the expected region of the spleen and is incompletely evaluated on this examination. CT of the abdomen will be performed this same day and will allow complete evaluation of this lesion. 2. Bilbasilar patchiness (left worse than right) consistent with atelectasis and/or pneumonia. Clinical correlation is recommended. 3. Small left pleural effusion. 4. Ascites within the upper abdomen. 5. Degenerative changes throughout the thoracic spine. 6. Coronary artery calcifications. Mahin Malin MD Objective Remarks General: NAD, AAOX3 Cardiac: Regular. Chest: CTA. ABD: +BS, soft, surgical drain at LUQ with sanguinous drainage Ext: No edema. 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 In turn this lead to an outflow infarct of the spleen which eroded into the pseudocyst leading to a large abdominal mass/process. - pt had omental bx 10/17/16 which was non-diagnostic - abdominal aspirate cytology on 10/20/16 --> histiocytes and blood cells, but NO malignancy identified - Repeat CT abd/pelvis (11/03/16) --> Stable left upper quadrant drainage catheter with apparent interval hemorrhage in the left upper quadrant collection (presumed spleen) and associated small amount of hemoperitoneum. Collection now measures 13.7 x 1.1 x 13.8 cm in comparison to 8.9 x 5.1 x 7.9 cm on recent exam. Changes of pancreatitis with multiple additional pseudocysts in the left upper quadrant. Redemonstration of bilateral lower lobe patchy airspace consolidation. Improving localized ileus in the left upper quadrant. - Pt underwent splenic embolization with IR, Dr. 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 Repeat labs today are 9.5/29.9 - Pt tolerating diet - 125ml sanguinous drainage from pt's abdominal drain in last 24 hours - continue PT - Lovenox for DVT prophylaxis - Monitor labs and clinical status closely - will repeat Abd CT in 2-3 days (2) Wenckebach second degree AV block Status: Acute Plan: - Developed 2nd degree AVB, Wenckebach type 1. - ASX. - 2D Echo nml LVF 10/29 (3) Volume overload Status: Acute Plan: see above (4) LLL pneumonia Status: Acute Plan: see above (5) Ileus Status: Acute Plan: - improved - pt received neostigmine while in the ICU - (6) Diarrhea Status: Acute Plan: see above (7) Alcoholism Status: Chronic Plan: - supportive care - Yfn Giron DO Nov 06, 2016 15:49
[2016-11-06] MEDS: PHENOL 1.4% SOLN 180 ML BTL OROPHARYNG PRN (17:34)
[2016-11-07] VITALS (9 sets, daily range): BP systolic 115–142; BP diastolic 63–86; PULSE 82–96; RESP 17–18; TEMP 97–99; O2SAT 97–100
[2016-11-07] MEDS: POTASSIUM CHLORIDE 25 MEQ EFFERVESCENT TAB PO SCH ×2 (09:22→21:37)
[2016-11-07] MEDS: CHLORHEXIDINE 0.12% (ORAL KIT) 15 ML CUP MT SCH ×2 (09:23→20:00)
[2016-11-07] MEDS: FUROSEMIDE 40 MG TAB PO SCH (09:23)
[2016-11-07] MEDS: ENOXAPARIN SODIUM 40 MG/0.4 ML SYRINGE SQ SCH (09:23)
[2016-11-07] MEDS: PANTOPRAZOLE SOD 40 MG DELAYED RELEASE TAB PO SCH (09:23)
[2016-11-07] MEDS: SODIUM CHLORIDE 0.9% 10 ML VIAL IRRIGATION SCH ×2 (09:25→16:00)
--- NOTE | 2016-11-07 10:38 | HHI.PR ---
Subjective Remarks No new complaints. Pt is tolerating PO intake. No c/o abdominal pain. No n/v/d Objective Vitals Vital Signs Date Time Temp Pulse Resp B/P Pulse Ox O2 Delivery O2 Flow Rate FiO2 11/07/16 09:38 Room Air 11/07/16 08:00 98.2 88 18 115/77 100 11/07/16 04:04 87 11/07/16 04:00 97.0 92 18 135/72 99 11/07/16 00:11 87 11/07/16 00:00 97.4 90 17 142/86 99 11/06/16 22:28 Room Air 21 11/06/16 21:39 90 11/06/16 20:52 98.4 80 18 149/81 99 11/06/16 20:00 99.1 87 30 127/69 97 11/06/16 19:00 97 Room Air 11/06/16 19:00 75 11/06/16 16:00 98.1 88 30 121/66 97 11/06/16 12:00 98.5 90 33 121/69 94 11/06/16 11/06/16 11/07/16 15:00 23:00 07:00 Intake Total 480 ml Output Total 850 ml Balance -370 ml Intake Oral 480 ml Output Urine Total 850 ml Drainage Total 0 ml # Voids 2 1 # Bowel Movements 1 Result Diagram: 11/06/16 0349 11/06/16 0349 Imaging Last Impressions Abdomen/Pelvis CT 11/03/16 0000 Signed Impressions: Service Date/Time: Thursday, November 03, 2016 15:41 - CONCLUSION: 1. Stable left upper quadrant drainage catheter with apparent interval hemorrhage in the left upper quadrant collection (presumed spleen) and associated small amount of hemoperitoneum. Collection now measures 13.7 x 1.1 x 13.8 cm in comparison to 8.9 x 5.1 x 7.9 cm on recent exam. 2. Changes of pancreatitis with multiple additional pseudocysts in the left upper quadrant. 3. Redemonstration of bilateral lower lobe patchy airspace consolidation. 4. Improving localized ileus in the left upper quadrant. Mario Cha MD Chest X-Ray 10/29/16 0600 Signed Impressions: Service Date/Time: Saturday, October 29, 2016 04:43 - CONCLUSION: Stable severity bilateral parenchymal opacities, consolidative on the left and non-consolidative on the right. Filemon Arteaga MD Abdomen X-Ray 10/22/16 0000 Signed Impressions: Service Date/Time: Saturday, October 22, 2016 11:55 - CONCLUSION: 1. Mildly distended loops of proximal jejunum in the left upper quadrant consistent with adynamic ileus noted on CT exam. Mario Cha MD Needle Aspiration CT 10/19/16 0000 Signed Impressions: Service Date/Time: Wednesday, October 19, 2016 12:35 - CONCLUSION: Uncomplicated drainage of a large fluid collection in the left upper quadrant. This appeared to predominantly represent old hemorrhage. Binh Jones MD Paracentesis 10/17/16 0000 Signed Impressions: Service Date/Time: Monday, October 17, 2016 14:05 - CONCLUSION: Uncomplicated CT Guided paracentesis revealing hemorrhagic ascites. Fernando Jones MD FACR Abdomen Biopsy CT 10/17/16 0000 Signed Impressions: Service Date/Time: Monday, October 17, 2016 11:32 - CONCLUSION: Uncomplicated CT guided biopsy possible peritoneal metastasis. Fernando Jones MD FACR Chest CT 10/16/16 0000 Signed Impressions: Service Date/Time: October 16:59 - CONCLUSION: 1. Huge complex cystic mass/collection within the left upper quadrant which occupies the expected region of the spleen and is incompletely evaluated on this examination. CT of the abdomen will be performed this same day and will allow complete evaluation of this lesion. 2. Bilbasilar patchiness (left worse than right) consistent with atelectasis and/or pneumonia. Clinical correlation is recommended. 3. Small left pleural effusion. 4. Ascites within the upper abdomen. 5. Degenerative changes throughout the thoracic spine. 6. Coronary artery calcifications. Mahin Malin MD Objective Remarks General: NAD, AAOX3 Cardiac: Regular. Chest: CTA. ABD: +BS, soft, surgical drain at LUQ with sanguinous drainage Ext: No edema. 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 In turn this lead to an outflow infarct of the spleen which eroded into the pseudocyst leading to a large abdominal mass/process. - pt had omental bx 10/17/16 which was non-diagnostic - abdominal aspirate cytology on 10/20/16 --> histiocytes and blood cells, but NO malignancy identified - Repeat CT abd/pelvis (11/03/16) --> Stable left upper quadrant drainage catheter with apparent interval hemorrhage in the left upper quadrant collection (presumed spleen) and associated small amount of hemoperitoneum. Collection now measures 13.7 x 1.1 x 13.8 cm in comparison to 8.9 x 5.1 x 7.9 cm on recent exam. Changes of pancreatitis with multiple additional pseudocysts in the left upper quadrant. Redemonstration of bilateral lower lobe patchy airspace consolidation. Improving localized ileus in the left upper quadrant. - Pt underwent splenic embolization with IR, Dr. 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 CBC (11/07/16) 8.7/26.5 - Pt tolerating diet - 65ml sanguinous drainage from pt's abdominal drain for 11/06/16 - continue PT - Lovenox for DVT prophylaxis - Monitor labs and clinical status closely - will repeat CT abd/pelvis 11/09/16 (2) Wenckebach second degree AV block Status: Acute Plan: - Developed 2nd degree AVB, Wenckebach type 1. - ASX. - 2D Echo nml LVF 10/29 (3) Volume overload Status: Acute Plan: see above (4) LLL pneumonia Status: Acute Plan: see above (5) Ileus Status: Resolved Plan: - resolved - pt received neostigmine while in the ICU - (6) Diarrhea Status: Resolved Plan: see above (7) Alcoholism Status: Chronic Plan: - supportive care - Yfn Giron DO Nov 07, 2016 10:38
[2016-11-07] MEDS: MAGNESIUM HYDROXIDE SUSP 30 ML CUP PO PRN (21:37)
[2016-11-07] MEDS: PHENOL 1.4% SOLN 180 ML BTL OROPHARYNG PRN (21:37)
[2016-11-08] VITALS (11 sets, daily range): BP systolic 118–138; BP diastolic 69–77; PULSE 60–92; RESP 17–20; TEMP 96.4–98.6; O2SAT 96–100
[2016-11-08] MEDS: CHLORHEXIDINE 0.12% (ORAL KIT) 15 ML CUP MT SCH ×2 (08:00→20:00)
[2016-11-08] MEDS: ENOXAPARIN SODIUM 40 MG/0.4 ML SYRINGE SQ SCH (08:37)
[2016-11-08] MEDS: FUROSEMIDE 40 MG TAB PO SCH (08:38)
[2016-11-08] MEDS: POTASSIUM CHLORIDE 25 MEQ EFFERVESCENT TAB PO SCH ×2 (08:38→20:21)
[2016-11-08] MEDS: SODIUM CHLORIDE 0.9% 10 ML VIAL IRRIGATION SCH ×2 (08:38→15:30)
[2016-11-08] MEDS: PANTOPRAZOLE SOD 40 MG DELAYED RELEASE TAB PO SCH (08:38)
--- NOTE | 2016-11-08 14:13 | HHI.PR ---
Subjective Remarks No new complaints. Objective Vitals Vital Signs Date Time Temp Pulse Resp B/P Pulse Ox O2 Delivery O2 Flow Rate FiO2 11/08/16 12:02 90 11/08/16 11:50 96.8 78 20 138/77 100 11/08/16 08:50 Room Air 11/08/16 07:47 88 11/08/16 07:30 97.4 85 20 123/69 96 11/08/16 04:29 92 11/08/16 04:00 96.5 83 18 125/70 97 11/08/16 00:13 90 11/08/16 00:00 97.7 83 17 118/76 96 11/07/16 21:36 Room Air 21 11/07/16 20:28 96 11/07/16 20:00 99.0 85 18 116/63 97 11/07/16 16:00 98.0 85 18 121/73 97 11/07/16 16:00 88 11/07/16 11/07/16 11/08/16 15:00 23:00 07:00 Intake Total 480 ml 480 ml Output Total 30 ml Balance -30 ml 480 ml 480 ml Intake Oral 480 ml 480 ml Drainage Total 30 ml # Voids 5 4 Result Diagram: 11/06/16 0349 11/06/16 0349 Imaging Last Impressions Abdomen/Pelvis CT 11/03/16 0000 Signed Impressions: Service Date/Time: Thursday, November 03, 2016 15:41 - CONCLUSION: 1. Stable left upper quadrant drainage catheter with apparent interval hemorrhage in the left upper quadrant collection (presumed spleen) and associated small amount of hemoperitoneum. Collection now measures 13.7 x 1.1 x 13.8 cm in comparison to 8.9 x 5.1 x 7.9 cm on recent exam. 2. Changes of pancreatitis with multiple additional pseudocysts in the left upper quadrant. 3. Redemonstration of bilateral lower lobe patchy airspace consolidation. 4. Improving localized ileus in the left upper quadrant. Mario Cha MD Chest X-Ray 10/29/16 0600 Signed Impressions: Service Date/Time: Saturday, October 29, 2016 04:43 - CONCLUSION: Stable severity bilateral parenchymal opacities, consolidative on the left and non-consolidative on the right. Filemon Arteaga MD Abdomen X-Ray 10/22/16 0000 Signed Impressions: Service Date/Time: Saturday, October 22, 2016 11:55 - CONCLUSION: 1. Mildly distended loops of proximal jejunum in the left upper quadrant consistent with adynamic ileus noted on CT exam. Mario Cha MD Needle Aspiration CT 10/19/16 0000 Signed Impressions: Service Date/Time: Wednesday, October 19, 2016 12:35 - CONCLUSION: Uncomplicated drainage of a large fluid collection in the left upper quadrant. This appeared to predominantly represent old hemorrhage. Binh Jones MD Paracentesis 10/17/16 0000 Signed Impressions: Service Date/Time: Monday, October 17, 2016 14:05 - CONCLUSION: Uncomplicated CT Guided paracentesis revealing hemorrhagic ascites. Fernando Jones MD FACR Abdomen Biopsy CT 10/17/16 0000 Signed Impressions: Service Date/Time: Monday, October 17, 2016 11:32 - CONCLUSION: Uncomplicated CT guided biopsy possible peritoneal metastasis. Fernando Jones MD FACR Chest CT 10/16/16 0000 Signed Impressions: Service Date/Time: October 16:59 - CONCLUSION: 1. Huge complex cystic mass/collection within the left upper quadrant which occupies the expected region of the spleen and is incompletely evaluated on this examination. CT of the abdomen will be performed this same day and will allow complete evaluation of this lesion. 2. Bilbasilar patchiness (left worse than right) consistent with atelectasis and/or pneumonia. Clinical correlation is recommended. 3. Small left pleural effusion. 4. Ascites within the upper abdomen. 5. Degenerative changes throughout the thoracic spine. 6. Coronary artery calcifications. Mahin Malin MD Objective Remarks General: NAD, AAOX3 Cardiac: Regular. Chest: CTA. ABD: +BS, soft, surgical drain at LUQ with sanguinous drainage Ext: No edema. 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 In turn this lead to an outflow infarct of the spleen which eroded into the pseudocyst leading to a large abdominal mass/process. - pt had omental bx 10/17/16 which was non-diagnostic - abdominal aspirate cytology on 10/20/16 --> histiocytes and blood cells, but NO malignancy identified - Repeat CT abd/pelvis (11/03/16) --> Stable left upper quadrant drainage catheter with apparent interval hemorrhage in the left upper quadrant collection (presumed spleen) and associated small amount of hemoperitoneum. Collection now measures 13.7 x 1.1 x 13.8 cm in comparison to 8.9 x 5.1 x 7.9 cm on recent exam. Changes of pancreatitis with multiple additional pseudocysts in the left upper quadrant. Redemonstration of bilateral lower lobe patchy airspace consolidation. Improving localized ileus in the left upper quadrant. - Pt underwent splenic embolization with IR, Dr. 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 CBC (11/07/16) 8.7/26.5 - Pt tolerating diet - 30ml sanguinous drainage from pt's abdominal drain for 11/07/16, and small amount of drainage in bag now, approximately 15ml - Case d/w Dr. Jerome (11/07/16) - will repeat CT abd/pelvis 11/09/16 - once CT obtained, will review with surgery & IR 11/10/16 - ? remove abdominal drain - continue PT - Lovenox for DVT prophylaxis - Monitor labs and clinical status closely - will repeat CT abd/pelvis 11/09/16 (2) Wenckebach second degree AV block Status: Acute Plan: - Developed 2nd degree AVB, Wenckebach type 1. - ASX. - 2D Echo nml LVF 10/29 (3) Volume overload Status: Acute Plan: see above (4) LLL pneumonia Status: Acute Plan: see above (5) Ileus Status: Resolved Plan: - resolved - pt received neostigmine while in the ICU - (6) Diarrhea Status: Resolved Plan: see above (7) Alcoholism Status: Chronic Plan: - supportive care - Yfn Giron DO Nov 08, 2016 14:13
[2016-11-09] VITALS (10 sets, daily range): BP systolic 103–136; BP diastolic 64–77; PULSE 73–92; RESP 18–22; TEMP 96–98.7; O2SAT 96–100
[2016-11-09 05:51] LABS: AUTOMATED NEUTROPHIL # 7.7 TH/MM3 (1.8-7.7); BASOPHIL # 0.2 TH/MM3 (0-0.2); BASOPHIL % 1.4 % (0.0-2.0); EOSINOPHIL # 0.7 TH/MM3 (0-0.4); EOSINOPHIL % 4.9 % (0.0-4.0); HEMATOCRIT 29.2 % (39.0-51.0); HEMO FLAGS DIFF FINAL; LYMPH % 28.6 % (9.0-44.0); LYMPHOCYTE # 4.1 TH/MM3 (1.0-4.8); MEAN CELL VOLUME 83.5 FL (80.0-100.0); MEAN CORPUSCULAR HGB CONC 32.3 % (32.0-36.0); NEUT % 53.1 % (16.0-70.0); PLATELET COUNT 455 TH/MM3 (150-450); RED CELL DISTRIBUTION WIDTH 16.7 % (11.6-17.2); WHITE BLOOD COUNT 14.4 TH/MM3 (4.0-11.0)
[2016-11-09 06:16] LABS: BICARBONATE 27.1 MEQ/L (21.0-32.0); POTASSIUM 4.1 MEQ/L (3.5-5.1)
[2016-11-09] MEDS: CHLORHEXIDINE 0.12% (ORAL KIT) 15 ML CUP MT SCH ×2 (07:21→20:00)
[2016-11-09] MEDS: ENOXAPARIN SODIUM 40 MG/0.4 ML SYRINGE SQ SCH (09:17)
[2016-11-09] MEDS: PANTOPRAZOLE SOD 40 MG DELAYED RELEASE TAB PO SCH (09:17)
[2016-11-09] MEDS: POTASSIUM CHLORIDE 25 MEQ EFFERVESCENT TAB PO SCH ×2 (09:17→21:23)
[2016-11-09] MEDS: SODIUM CHLORIDE 0.9% 10 ML VIAL IRRIGATION SCH ×2 (09:17→15:11)
[2016-11-09] MEDS: FUROSEMIDE 40 MG TAB PO SCH (09:17)
--- NOTE | 2016-11-09 13:47 | HHI.PR ---
Subjective Remarks No new complaints. Tolerating PO intake. Last BM yesterday. NO abdominal pain. Objective Vitals Vital Signs Date Time Temp Pulse Resp B/P Pulse Ox O2 Delivery O2 Flow Rate FiO2 11/09/16 12:00 97.6 84 21 110/67 98 11/09/16 08:00 96.2 82 22 124/71 100 11/09/16 04:00 96.9 83 19 103/64 96 11/09/16 04:00 77 11/09/16 01:05 20 11/09/16 00:00 98.7 86 18 125/76 98 11/09/16 00:00 80 11/08/16 20:00 98.6 84 19 121/77 97 11/08/16 20:00 79 11/08/16 20:00 Room Air 11/08/16 15:59 60 11/08/16 15:30 96.4 86 20 138/76 100 11/08/16 11/08/16 11/09/16 15:00 23:00 07:00 Intake Total 600 ml 480 ml 480 ml Output Total 85 ml Balance 600 ml 395 ml 480 ml Intake Oral 600 ml 480 ml 480 ml Drainage Total 85 ml # Voids 2 2 2 # Bowel Movements 0 1 Result Diagram: 11/09/16 0510 11/09/16 0510 Imaging Last Impressions Chest X-Ray 11/05/16 0000 Signed Impressions: Service Date/Time: Saturday, November 05, 2016 18:54 - CONCLUSION: 1. Drainage catheter in left upper quadrant. Small left effusion with left basilar airspace disease, increased since October 29. Kiran Harvey MD Splenic Arteriogram 11/03/16 0000 Signed Impressions: Service Date/Time: Thursday, November 03, 2016 16:41 - CONCLUSION: 1. 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 Technically successful coil and limited Gelfoam subselective embolization, as above. Mario Cha MD Central Venous Line 11/03/16 0000 Signed Impressions: Service Date/Time: Thursday, November 03, 2016 16:41 - CONCLUSION: Uncomplicated line placement as above. Mario Cha MD Abdomen/Pelvis CT 11/03/16 0000 Signed Impressions: Service Date/Time: Thursday, November 03, 2016 15:41 - CONCLUSION: 1. Stable left upper quadrant drainage catheter with apparent interval hemorrhage in the left upper quadrant collection (presumed spleen) and associated small amount of hemoperitoneum. Collection now measures 13.7 x 1.1 x 13.8 cm in comparison to 8.9 x 5.1 x 7.9 cm on recent exam. 2. Changes of pancreatitis with multiple additional pseudocysts in the left upper quadrant. 3. Redemonstration of bilateral lower lobe patchy airspace consolidation. 4. Improving localized ileus in the left upper quadrant. Mario Cha MD Abdomen X-Ray 10/22/16 0000 Signed Impressions: Service Date/Time: Saturday, October 22, 2016 11:55 - CONCLUSION: 1. Mildly distended loops of proximal jejunum in the left upper quadrant consistent with adynamic ileus noted on CT exam. Mario Cha MD Needle Aspiration CT 10/19/16 0000 Signed Impressions: Service Date/Time: Wednesday, October 19, 2016 12:35 - CONCLUSION: Uncomplicated drainage of a large fluid collection in the left upper quadrant. This appeared to predominantly represent old hemorrhage. Binh Jones MD Paracentesis 10/17/16 0000 Signed Impressions: Service Date/Time: Monday, October 17, 2016 14:05 - CONCLUSION: Uncomplicated CT Guided paracentesis revealing hemorrhagic ascites. Fernando Jones MD FACR Abdomen Biopsy CT 10/17/16 0000 Signed Impressions: Service Date/Time: Monday, October 17, 2016 11:32 - CONCLUSION: Uncomplicated CT guided biopsy possible peritoneal metastasis. Fernando Jones MD FACR Chest CT 10/16/16 0000 Signed Impressions: Service Date/Time: October 16:59 - CONCLUSION: 1. Huge complex cystic mass/collection within the left upper quadrant which occupies the expected region of the spleen and is incompletely evaluated on this examination. CT of the abdomen will be performed this same day and will allow complete evaluation of this lesion. 2. Bilbasilar patchiness (left worse than right) consistent with atelectasis and/or pneumonia. Clinical correlation is recommended. 3. Small left pleural effusion. 4. Ascites within the upper abdomen. 5. Degenerative changes throughout the thoracic spine. 6. Coronary artery calcifications. Mahin Malin MD Objective Remarks General: NAD, AAOX3 Cardiac: Regular. Chest: CTA. ABD: +BS, soft, surgical drain at LUQ with sanguinous drainage Ext: No edema. 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 In turn this lead to an outflow infarct of the spleen which eroded into the pseudocyst leading to a large abdominal mass/process. - pt had omental bx 10/17/16 which was non-diagnostic - abdominal aspirate cytology on 10/20/16 --> histiocytes and blood cells, but NO malignancy identified - Repeat CT abd/pelvis (11/03/16) --> Stable left upper quadrant drainage catheter with apparent interval hemorrhage in the left upper quadrant collection (presumed spleen) and associated small amount of hemoperitoneum. Collection now measures 13.7 x 1.1 x 13.8 cm in comparison to 8.9 x 5.1 x 7.9 cm on recent exam. Changes of pancreatitis with multiple additional pseudocysts in the left upper quadrant. Redemonstration of bilateral lower lobe patchy airspace consolidation. Improving localized ileus in the left upper quadrant. - Pt underwent splenic embolization with IR, Dr. 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 CBC (11/07/16) 8.7/26.5 - Pt tolerating diet - 20ml sanguinous drainage from pt's abdominal drain for 11/08/16, and 85ml sanguinous drainage so far today (11/09/16) - Case d/w Dr. Jerome (11/07/16) - will repeat CT abd/pelvis 11/09/16 - once CT obtained, will review with surgery & IR 11/10/16 - ? remove abdominal drain - continue PT - Lovenox for DVT prophylaxis - Monitor labs and clinical status closely - will repeat CT abd/pelvis 11/09/16 11/09/16 - pt interviewed and examined - continue treatment plan as outlined above. (2) Wenckebach second degree AV block Status: Acute Plan: - Developed 2nd degree AVB, Wenckebach type 1. - ASX. - 2D Echo nml LVF 10/29 (3) Volume overload Status: Acute Plan: see above (4) LLL pneumonia Status: Acute Plan: see above (5) Ileus Status: Resolved Plan: - resolved - pt received neostigmine while in the ICU - (6) Diarrhea Status: Resolved Plan: see above (7) Alcoholism Status: Chronic Plan: - supportive care - Yfn Giron DO Nov 09, 2016 13:47
[2016-11-09] MEDS: MAGNESIUM HYDROXIDE SUSP 30 ML CUP PO PRN (15:11)
[2016-11-10] VITALS (10 sets, daily range): BP systolic 105–136; BP diastolic 67–79; PULSE 76–90; RESP 16–18; TEMP 96.2–97.2; O2SAT 95–99
[2016-11-10] MEDS: HYDROmorphone HCL PF 1 MG/ML VIAL IV PUSH PRN (00:01)
--- NOTE | 2016-11-10 00:41 | RADRPT ---
EXAM DATE/TIME: 11/10/2016 00:19 [facility] COMPARISON: CT ABDOMEN & PELVIS W/O CONTRAST, November 03, 2016, 15:41. INDICATIONS : Follow up left upper quadrant fluid collection; post splenic embolization. ORAL CONTRAST: No oral contrast ingested. RADIATION DOSE: 9.96 CTDIvol (mGy) MEDICAL HISTORY : Pancreatitis. Asthma SURGICAL HISTORY : None. ENCOUNTER: Subsequent ACUITY: 3 days PAIN SCALE: 3/10 LOCATION: abdomen TECHNIQUE: Volumetric scanning of the abdomen and pelvis was performed. Using automated exposure control and ad justment of the mA and/or kV according to patient size, radiation dose was kept as low as reasonably achievable to obtain optimal diagnostic quality images. DICOM format image data is available electro nically for review and comparison. FINDINGS: LOWER LUNGS: There is consolidation left lower lobe and the lingula. LIVER: Homogeneous density without lesion. There is no dilation of the biliary tree. Two calcified gallst ones are noted. SPLEEN: A large mixed density lesion has replaced the spleen measuring 10.4 x 12.6 cm across. There is a pig tail catheter along the posterolateral margin of the suspected fractured spleen. There is either coil ing or marked increased density related to embolization procedure along the splenic hilum new since t he previous study. PANCREAS: Innumerable calcifications consistent with chronic pancreatitis KIDNEYS: Normal in size and shape. There is no mass, stone, or hydronephrosis. ADRENAL GLANDS: Within normal limits. VASCULAR: There is no aortic aneurysm. BOWEL/MESENTERY: The stomach, small bowel, and colon demonstrate no acute abnormality. There is no free intraperitone al air or fluid. The free fluid seen previously has cleared ABDOMINAL WALL: Within normal limits. RETROPERITONEUM: There is no lymphadenopathy. BLADDER: No wall thickening or mass. REPRODUCTIVE: Within normal limits. INGUINAL: There is no lymphadenopathy or hernia. MUSCULOSKELETAL: Within normal limits for patient age. CONCLUSION: Continued heterogeneous dense mass in the splenic bed measuring 12.6 x 10.4 cm across. It is similar in size to the previous study with mixed density suggesting some previous hemorrhage. Catheters in g ood position. Free fluid throughout the pelvis has resolved. Persistent infiltrate left lower lobe Morro Stahl MD on November 10, 2016 at 0:36 Board Certified Radiologist. This report was verified electronically.
[2016-11-10] MEDS: CHLORHEXIDINE 0.12% (ORAL KIT) 15 ML CUP MT SCH ×2 (07:14→20:00)
[2016-11-10] MEDS: SODIUM CHLORIDE 0.9% 10 ML VIAL IRRIGATION SCH ×2 (08:21→15:30)
[2016-11-10] MEDS: POTASSIUM CHLORIDE 25 MEQ EFFERVESCENT TAB PO SCH ×2 (08:21→20:15)
[2016-11-10] MEDS: FUROSEMIDE 40 MG TAB PO SCH (08:21)
[2016-11-10] MEDS: ENOXAPARIN SODIUM 40 MG/0.4 ML SYRINGE SQ SCH (08:21)
[2016-11-10] MEDS: PANTOPRAZOLE SOD 40 MG DELAYED RELEASE TAB PO SCH (08:21)
--- NOTE | 2016-11-10 09:08 | HHI.PR ---
Subjective Remarks feels well. He believes drainage is slowing down. Objective Vitals heart reg lung cta abd s/nt/left flank drain. dark fluid. blood tinge. ext no edema Vital Signs Date Time Temp Pulse Resp B/P Pulse Ox O2 Delivery O2 Flow Rate FiO2 11/10/16 08:00 96.3 89 16 136/79 98 11/10/16 04:00 96.4 79 18 121/75 95 11/10/16 00:44 16 11/10/16 00:00 97.1 84 18 127/71 98 11/09/16 21:30 Room Air 2.00 21 11/09/16 20:07 92 11/09/16 20:00 96.0 81 18 136/75 100 11/09/16 16:11 82 11/09/16 16:00 97.5 79 20 126/77 100 11/09/16 13:53 Room Air 11/09/16 12:01 82 11/09/16 12:00 97.6 84 21 110/67 98 11/09/16 11/09/16 11/10/16 15:00 23:00 07:00 Intake Total 480 ml 480 ml 480 ml Output Total 20 ml 60 ml 60 ml Balance 460 ml 420 ml 420 ml Intake Oral 480 ml 480 ml 480 ml Drainage Total 20 ml 60 ml 60 ml # Voids 3 4 3 # Bowel Movements 2 Result Diagram: 11/09/16 0510 11/09/16 0510 Imaging Last Impressions Chest X-Ray 11/05/16 0000 Signed Impressions: Service Date/Time: Saturday, November 05, 2016 18:54 - CONCLUSION: 1. Drainage catheter in left upper quadrant. Small left effusion with left basilar airspace disease, increased since October 29. Kiran Harvey MD Splenic Arteriogram 11/03/16 0000 Signed Impressions: Service Date/Time: Thursday, November 03, 2016 16:41 - CONCLUSION: 1. 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 Technically successful coil and limited Gelfoam subselective embolization, as above. Mario Cha MD Central Venous Line 11/03/16 0000 Signed Impressions: Service Date/Time: Thursday, November 03, 2016 16:41 - CONCLUSION: Uncomplicated line placement as above. Mario Cha MD Abdomen/Pelvis CT 11/03/16 0000 Signed Impressions: Service Date/Time: Thursday, November 03, 2016 15:41 - CONCLUSION: 1. Stable left upper quadrant drainage catheter with apparent interval hemorrhage in the left upper quadrant collection (presumed spleen) and associated small amount of hemoperitoneum. Collection now measures 13.7 x 1.1 x 13.8 cm in comparison to 8.9 x 5.1 x 7.9 cm on recent exam. 2. Changes of pancreatitis with multiple additional pseudocysts in the left upper quadrant. 3. Redemonstration of bilateral lower lobe patchy airspace consolidation. 4. Improving localized ileus in the left upper quadrant. Mario Cha MD Abdomen X-Ray 10/22/16 0000 Signed Impressions: Service Date/Time: Saturday, October 22, 2016 11:55 - CONCLUSION: 1. Mildly distended loops of proximal jejunum in the left upper quadrant consistent with adynamic ileus noted on CT exam. Mario Cha MD Needle Aspiration CT 10/19/16 0000 Signed Impressions: Service Date/Time: Wednesday, October 19, 2016 12:35 - CONCLUSION: Uncomplicated drainage of a large fluid collection in the left upper quadrant. This appeared to predominantly represent old hemorrhage. Binh Jones MD Paracentesis 10/17/16 0000 Signed Impressions: Service Date/Time: Monday, October 17, 2016 14:05 - CONCLUSION: Uncomplicated CT Guided paracentesis revealing hemorrhagic ascites. Fernando Jones MD FACR Abdomen Biopsy CT 10/17/16 0000 Signed Impressions: Service Date/Time: Monday, October 17, 2016 11:32 - CONCLUSION: Uncomplicated CT guided biopsy possible peritoneal metastasis. Fernando Jones MD FACR Chest CT 10/16/16 0000 Signed Impressions: Service Date/Time: October 16:59 - CONCLUSION: 1. Huge complex cystic mass/collection within the left upper quadrant which occupies the expected region of the spleen and is incompletely evaluated on this examination. CT of the abdomen will be performed this same day and will allow complete evaluation of this lesion. 2. Bilbasilar patchiness (left worse than right) consistent with atelectasis and/or pneumonia. Clinical correlation is recommended. 3. Small left pleural effusion. 4. Ascites within the upper abdomen. 5. Degenerative changes throughout the thoracic spine. 6. Coronary artery calcifications. 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 In turn this lead to an outflow infarct of the spleen which eroded into the pseudocyst leading to a large abdominal mass/process. - pt had omental bx 10/17/16 which was non-diagnostic - abdominal aspirate cytology on 10/20/16 --> histiocytes and blood cells, but NO malignancy identified - Repeat CT abd/pelvis (11/03/16) --> Stable left upper quadrant drainage catheter with apparent interval hemorrhage in the left upper quadrant collection (presumed spleen) and associated small amount of hemoperitoneum. Collection now measures 13.7 x 1.1 x 13.8 cm in comparison to 8.9 x 5.1 x 7.9 cm on recent exam. Changes of pancreatitis with multiple additional pseudocysts in the left upper quadrant. Redemonstration of bilateral lower lobe patchy airspace consolidation. Improving localized ileus in the left upper quadrant. - Pt underwent splenic embolization with IR, Dr. 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 CBC (11/07/16) 8.7/26.5 - Pt tolerating diet - Case d/w Dr. Jerome (11/07/16) - repeat CT a/p 11/09 shows stable fluid collection During 12 hr shift yesterday 60ml...small amt of additional drainage overnight. cont to observe for decline in amt. surgery not recommended so far per GS. (2) Wenckebach second degree AV block Status: Acute Plan: - Developed 2nd degree AVB, Wenckebach type 1. - ASX. - 2D Echo nml LVF 10/29 (3) Volume overload Status: Acute Plan: see above (4) LLL pneumonia Status: Acute Plan: see above (5) Ileus Status: Resolved Plan: - resolved - pt received neostigmine while in the ICU - (6) Diarrhea Status: Resolved Plan: see above (7) Alcoholism Status: Chronic Plan: - supportive care - Hugo Howard MD Nov 10, 2016 09:08
[2016-11-10] MEDS: ONDANSETRON HCL 4 MG/2 ML VIAL IV PUSH PRN ×3 (09:44→15:27)
[2016-11-11] VITALS (11 sets, daily range): BP systolic 112–137; BP diastolic 69–84; PULSE 80–101; RESP 16–20; TEMP 96.9–97.7; O2SAT 96–99
[2016-11-11] MEDS: CHLORHEXIDINE 0.12% (ORAL KIT) 15 ML CUP MT SCH ×2 (08:00→20:00)
--- NOTE | 2016-11-11 09:27 | HHI.PR ---
Subjective Remarks pt w/out new problems Objective Vitals heart reg lung cta abd s/nt ext no edema left flank drain. dark bloody drainage. Vital Signs Date Time Temp Pulse Resp B/P Pulse Ox O2 Delivery O2 Flow Rate FiO2 11/11/16 08:00 97.7 88 18 129/84 99 11/11/16 07:20 88 11/11/16 05:30 96.9 96 18 119/72 96 11/11/16 04:00 101 11/11/16 00:08 80 11/11/16 00:00 97.5 85 16 120/72 96 11/10/16 20:30 97.2 84 16 116/76 96 11/10/16 20:20 Room Air 11/10/16 20:01 90 11/10/16 16:21 83 11/10/16 16:00 96.5 82 16 126/78 99 11/10/16 12:14 88 11/10/16 12:00 96.2 83 16 105/67 96 11/10/16 11/10/16 11/11/16 15:00 23:00 07:00 Intake Total 480 ml Output Total 40 ml 50 ml Balance 440 ml -50 ml Intake Oral 480 ml Drainage Total 40 ml 50 ml # Voids 3 # Bowel Movements 0 Result Diagram: 11/09/16 0510 11/09/16 0510 Imaging Last Impressions Chest X-Ray 11/05/16 0000 Signed Impressions: Service Date/Time: Saturday, November 05, 2016 18:54 - CONCLUSION: 1. Drainage catheter in left upper quadrant. Small left effusion with left basilar airspace disease, increased since October 29. Kiran Harvey MD Splenic Arteriogram 11/03/16 0000 Signed Impressions: Service Date/Time: Thursday, November 03, 2016 16:41 - CONCLUSION: 1. 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 Technically successful coil and limited Gelfoam subselective embolization, as above. Mario Cha MD Central Venous Line 11/03/16 0000 Signed Impressions: Service Date/Time: Thursday, November 03, 2016 16:41 - CONCLUSION: Uncomplicated line placement as above. Mario Cha MD Abdomen/Pelvis CT 11/03/16 0000 Signed Impressions: Service Date/Time: Thursday, November 03, 2016 15:41 - CONCLUSION: 1. Stable left upper quadrant drainage catheter with apparent interval hemorrhage in the left upper quadrant collection (presumed spleen) and associated small amount of hemoperitoneum. Collection now measures 13.7 x 1.1 x 13.8 cm in comparison to 8.9 x 5.1 x 7.9 cm on recent exam. 2. Changes of pancreatitis with multiple additional pseudocysts in the left upper quadrant. 3. Redemonstration of bilateral lower lobe patchy airspace consolidation. 4. Improving localized ileus in the left upper quadrant. Mario Cha MD Abdomen X-Ray 10/22/16 0000 Signed Impressions: Service Date/Time: Saturday, October 22, 2016 11:55 - CONCLUSION: 1. Mildly distended loops of proximal jejunum in the left upper quadrant consistent with adynamic ileus noted on CT exam. Mario Cha MD Needle Aspiration CT 10/19/16 0000 Signed Impressions: Service Date/Time: Wednesday, October 19, 2016 12:35 - CONCLUSION: Uncomplicated drainage of a large fluid collection in the left upper quadrant. This appeared to predominantly represent old hemorrhage. Binh Jones MD Paracentesis 10/17/16 0000 Signed Impressions: Service Date/Time: Monday, October 17, 2016 14:05 - CONCLUSION: Uncomplicated CT Guided paracentesis revealing hemorrhagic ascites. Fernando Jones MD FACR Abdomen Biopsy CT 10/17/16 0000 Signed Impressions: Service Date/Time: Monday, October 17, 2016 11:32 - CONCLUSION: Uncomplicated CT guided biopsy possible peritoneal metastasis. Fernando Jones MD FACR Chest CT 10/16/16 0000 Signed Impressions: Service Date/Time: October 16:59 - CONCLUSION: 1. Huge complex cystic mass/collection within the left upper quadrant which occupies the expected region of the spleen and is incompletely evaluated on this examination. CT of the abdomen will be performed this same day and will allow complete evaluation of this lesion. 2. Bilbasilar patchiness (left worse than right) consistent with atelectasis and/or pneumonia. Clinical correlation is recommended. 3. Small left pleural effusion. 4. Ascites within the upper abdomen. 5. Degenerative changes throughout the thoracic spine. 6. Coronary artery calcifications. 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 In turn this lead to an outflow infarct of the spleen which eroded into the pseudocyst leading to a large abdominal mass/process. - pt had omental bx 10/17/16 which was non-diagnostic - abdominal aspirate cytology on 10/20/16 --> histiocytes and blood cells, but NO malignancy identified - Repeat CT abd/pelvis (11/03/16) --> Stable left upper quadrant drainage catheter with apparent interval hemorrhage in the left upper quadrant collection (presumed spleen) and associated small amount of hemoperitoneum. Collection now measures 13.7 x 1.1 x 13.8 cm in comparison to 8.9 x 5.1 x 7.9 cm on recent exam. Changes of pancreatitis with multiple additional pseudocysts in the left upper quadrant. Redemonstration of bilateral lower lobe patchy airspace consolidation. Improving localized ileus in the left upper quadrant. - Pt underwent splenic embolization with IR, Dr. 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 CBC (11/07/16) 8.7/26.5 - Pt tolerating diet - Case d/w Dr. Jerome (11/07/16) - repeat CT a/p 11/09 shows stable fluid collection still monitoring the drain for slow down. At this point it is unclear how long this will take or if it will ever stop. Will continue to work with GS/IR to find a solution. (2) Wenckebach second degree AV block Status: Acute Plan: - Developed 2nd degree AVB, Wenckebach type 1. - ASX. - 2D Echo nml LVF 10/29 (3) Volume overload Status: Acute Plan: see above (4) LLL pneumonia Status: Acute Plan: see above (5) Ileus Status: Resolved Plan: - resolved - pt received neostigmine while in the ICU - (6) Diarrhea Status: Resolved Plan: see above (7) Alcoholism Status: Chronic Plan: - supportive care - Hugo Howard MD Nov 11, 2016 09:27
[2016-11-11] MEDS: FUROSEMIDE 40 MG TAB PO SCH (09:42)
[2016-11-11] MEDS: PANTOPRAZOLE SOD 40 MG DELAYED RELEASE TAB PO SCH (09:42)
[2016-11-11] MEDS: POTASSIUM CHLORIDE 25 MEQ EFFERVESCENT TAB PO SCH ×2 (09:42→19:30)
[2016-11-11] MEDS: ENOXAPARIN SODIUM 40 MG/0.4 ML SYRINGE SQ SCH (09:44)
[2016-11-11] MEDS: SODIUM CHLORIDE 0.9% 10 ML VIAL IRRIGATION SCH ×2 (09:54→16:51)
[2016-11-12] VITALS (7 sets, daily range): BP systolic 102–119; BP diastolic 56–71; PULSE 83–96; RESP 16–22; TEMP 96.2–98.1; O2SAT 96–99
--- NOTE | 2016-11-12 09:32 | HHI.FF ---
Face to Face Verification Diagnosis: (1) Pancreatic pseudocyst (2) Splenic hemorrhage Home Health Nursing Order: Signs/symptoms of disease process Wound care and dressing changes Nursing assessment with vital signs Instructions: assist with management of right upper quadrant drain. monitor and record drainage for 24 hour periods to be reported back to Dr Lucas Jerome's office. He will decide when to pull the drain. Please assist pt with general care of the drain please. I have seen patient Graeme Clark on 11/12/16. My clinical findings support the need for the requested home health care services because: Limited ability to care for self I certify that my clinical findings support that this patient is homebound because: Post-op weakness Hugo Howard MD Nov 12, 2016 09:32
--- NOTE | 2016-11-12 09:33 | HHI.PR ---
Subjective Remarks eager for d/c no new events Objective Vitals heart reg lung cta abd s/nt/ ext no edema left flank drain. dark fluid drainage. Vital Signs Date Time Temp Pulse Resp B/P Pulse Ox O2 Delivery O2 Flow Rate FiO2 11/12/16 08:49 86 11/12/16 08:00 96.4 92 22 119/71 97 11/12/16 04:00 87 11/12/16 04:00 96.2 94 16 111/65 96 11/12/16 00:00 96 11/12/16 00:00 98.1 96 18 114/71 96 11/11/16 20:00 97.7 93 16 120/73 98 11/11/16 20:00 91 11/11/16 19:35 Room Air 11/11/16 16:22 97.3 89 18 112/69 97 11/11/16 16:08 84 11/11/16 12:01 92 11/11/16 12:00 97.0 87 20 137/81 98 11/11/16 09:42 Room Air 11/11/16 11/11/16 11/12/16 15:00 23:00 07:00 Intake Total 360 ml 1360 ml 500 ml Output Total 120 ml 100 ml Balance 240 ml 1260 ml 500 ml Intake Oral 360 ml 1360 ml 500 ml Drainage Total 120 ml 100 ml # Voids 4 2 # Bowel Movements 1 0 Result Diagram: 11/09/16 0510 11/09/16 0510 Imaging Last Impressions Chest X-Ray 11/05/16 0000 Signed Impressions: Service Date/Time: Saturday, November 05, 2016 18:54 - CONCLUSION: 1. Drainage catheter in left upper quadrant. Small left effusion with left basilar airspace disease, increased since October 29. Kiran Harvey MD Splenic Arteriogram 11/03/16 0000 Signed Impressions: Service Date/Time: Thursday, November 03, 2016 16:41 - CONCLUSION: 1. 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 Technically successful coil and limited Gelfoam subselective embolization, as above. Mario Cha MD Central Venous Line 11/03/16 0000 Signed Impressions: Service Date/Time: Thursday, November 03, 2016 16:41 - CONCLUSION: Uncomplicated line placement as above. Mario Cha MD Abdomen/Pelvis CT 11/03/16 0000 Signed Impressions: Service Date/Time: Thursday, November 03, 2016 15:41 - CONCLUSION: 1. Stable left upper quadrant drainage catheter with apparent interval hemorrhage in the left upper quadrant collection (presumed spleen) and associated small amount of hemoperitoneum. Collection now measures 13.7 x 1.1 x 13.8 cm in comparison to 8.9 x 5.1 x 7.9 cm on recent exam. 2. Changes of pancreatitis with multiple additional pseudocysts in the left upper quadrant. 3. Redemonstration of bilateral lower lobe patchy airspace consolidation. 4. Improving localized ileus in the left upper quadrant. Mario Cha MD Abdomen X-Ray 10/22/16 0000 Signed Impressions: Service Date/Time: Saturday, October 22, 2016 11:55 - CONCLUSION: 1. Mildly distended loops of proximal jejunum in the left upper quadrant consistent with adynamic ileus noted on CT exam. Mario Cha MD Needle Aspiration CT 10/19/16 0000 Signed Impressions: Service Date/Time: Wednesday, October 19, 2016 12:35 - CONCLUSION: Uncomplicated drainage of a large fluid collection in the left upper quadrant. This appeared to predominantly represent old hemorrhage. Binh Jones MD Paracentesis 10/17/16 0000 Signed Impressions: Service Date/Time: Monday, October 17, 2016 14:05 - CONCLUSION: Uncomplicated CT Guided paracentesis revealing hemorrhagic ascites. Fernando Jones MD FACR Abdomen Biopsy CT 10/17/16 0000 Signed Impressions: Service Date/Time: Monday, October 17, 2016 11:32 - CONCLUSION: Uncomplicated CT guided biopsy possible peritoneal metastasis. Fernando Jones MD FACR Chest CT 10/16/16 0000 Signed Impressions: Service Date/Time: October 16:59 - CONCLUSION: 1. Huge complex cystic mass/collection within the left upper quadrant which occupies the expected region of the spleen and is incompletely evaluated on this examination. CT of the abdomen will be performed this same day and will allow complete evaluation of this lesion. 2. Bilbasilar patchiness (left worse than right) consistent with atelectasis and/or pneumonia. Clinical correlation is recommended. 3. Small left pleural effusion. 4. Ascites within the upper abdomen. 5. Degenerative changes throughout the thoracic spine. 6. Coronary artery calcifications. 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 In turn this lead to an outflow infarct of the spleen which eroded into the pseudocyst leading to a large abdominal mass/process. - pt had omental bx 10/17/16 which was non-diagnostic - abdominal aspirate cytology on 10/20/16 --> histiocytes and blood cells, but NO malignancy identified - Repeat CT abd/pelvis (11/03/16) --> Stable left upper quadrant drainage catheter with apparent interval hemorrhage in the left upper quadrant collection (presumed spleen) and associated small amount of hemoperitoneum. Collection now measures 13.7 x 1.1 x 13.8 cm in comparison to 8.9 x 5.1 x 7.9 cm on recent exam. Changes of pancreatitis with multiple additional pseudocysts in the left upper quadrant. Redemonstration of bilateral lower lobe patchy airspace consolidation. Improving localized ileus in the left upper quadrant. - Pt underwent splenic embolization with IR, Dr. 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 CBC (11/07/16) 8.7/26.5 - Pt tolerating diet - Case d/w Dr. Jerome (11/07/16) - repeat CT a/p 11/09 shows stable fluid collection still monitoring the drain for slow down. At this point it is unclear how long this will take or if it will ever stop. Discussed with Dr Jerome. No surgical intervention recommended or planned. He will f/u in office and agrees with sending pt home with drain and hhc to follow. (2) Wenckebach second degree AV block Status: Acute Plan: - Developed 2nd degree AVB, Wenckebach type 1. - ASX. - 2D Echo nml LVF 10/29 (3) Volume overload Status: Acute Plan: see above (4) LLL pneumonia Status: Acute Plan: see above (5) Ileus Status: Resolved Plan: - resolved - pt received neostigmine while in the ICU - (6) Diarrhea Status: Resolved Plan: see above (7) Alcoholism Status: Chronic Plan: - supportive care - Hugo Howard MD Nov 12, 2016 09:33
[2016-11-12] MEDS: POTASSIUM CHLORIDE 25 MEQ EFFERVESCENT TAB PO SCH ×2 (10:20→22:15)
[2016-11-12] MEDS: CHLORHEXIDINE 0.12% (ORAL KIT) 15 ML CUP MT SCH ×2 (10:21→20:00)
[2016-11-12] MEDS: PANTOPRAZOLE SOD 40 MG DELAYED RELEASE TAB PO SCH (10:23)
[2016-11-12] MEDS: ENOXAPARIN SODIUM 40 MG/0.4 ML SYRINGE SQ SCH (10:23)
[2016-11-12] MEDS: FUROSEMIDE 40 MG TAB PO SCH (10:23)
[2016-11-12] MEDS: SODIUM CHLORIDE 0.9% 10 ML VIAL IRRIGATION SCH ×2 (10:24→18:35)
[2016-11-13] VITALS: BP 115/69; PULSE 90; RESP 16; TEMP 98.1; O2SAT 97
[2016-11-13 04:00] VITALS: BP 125/73; PULSE 93; RESP 16; TEMP 97.4; O2SAT 97
[2016-11-13] MEDS: CHLORHEXIDINE 0.12% (ORAL KIT) 15 ML CUP MT SCH (07:07)
[2016-11-13 08:00] VITALS: BP 113/67; PULSE 84; RESP 18; TEMP 97.1; O2SAT 99
[2016-11-13] MEDS: PANTOPRAZOLE SOD 40 MG DELAYED RELEASE TAB PO SCH (08:02)
[2016-11-13] MEDS: FUROSEMIDE 40 MG TAB PO SCH (08:02)
[2016-11-13] MEDS: SODIUM CHLORIDE 0.9% 10 ML VIAL IRRIGATION SCH (08:02)
[2016-11-13] MEDS: POTASSIUM CHLORIDE 25 MEQ EFFERVESCENT TAB PO SCH (08:02)
[2016-11-13] MEDS: ENOXAPARIN SODIUM 40 MG/0.4 ML SYRINGE SQ SCH (08:02)
--- NOTE | 2016-11-13 09:43 | HHI.PR ---
Subjective Remarks eager for d/c Objective Vitals heart reg lung cta abd s/nt ext no edmea left flank drain. Vital Signs Date Time Temp Pulse Resp B/P Pulse Ox O2 Delivery O2 Flow Rate FiO2 11/13/16 08:06 Room Air 11/13/16 08:00 97.1 84 18 113/67 99 11/13/16 04:00 97.4 93 16 125/73 97 11/13/16 00:00 98.1 90 16 115/69 97 11/12/16 20:00 98.0 87 16 115/67 99 11/12/16 16:00 97.6 83 22 102/56 96 11/12/16 12:00 98.0 95 20 116/65 11/12/16 10:24 Room Air 11/12/16 11/12/16 11/13/16 15:00 23:00 07:00 Intake Total 780 ml 350 ml 350 ml Output Total 150 ml Balance 780 ml 200 ml 350 ml Intake Oral 780 ml 350 ml 350 ml Drainage Total 150 ml # Voids 4 2 1 # Bowel Movements 0 0 0 Result Diagram: 11/09/16 0510 11/09/16 0510 Imaging Last Impressions Chest X-Ray 11/05/16 0000 Signed Impressions: Service Date/Time: Saturday, November 05, 2016 18:54 - CONCLUSION: 1. Drainage catheter in left upper quadrant. Small left effusion with left basilar airspace disease, increased since October 29. Kiran Harvey MD Splenic Arteriogram 11/03/16 0000 Signed Impressions: Service Date/Time: Thursday, November 03, 2016 16:41 - CONCLUSION: 1. 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 Technically successful coil and limited Gelfoam subselective embolization, as above. Mario Cha MD Central Venous Line 11/03/16 0000 Signed Impressions: Service Date/Time: Thursday, November 03, 2016 16:41 - CONCLUSION: Uncomplicated line placement as above. Mario Cha MD Abdomen/Pelvis CT 11/03/16 0000 Signed Impressions: Service Date/Time: Thursday, November 03, 2016 15:41 - CONCLUSION: 1. Stable left upper quadrant drainage catheter with apparent interval hemorrhage in the left upper quadrant collection (presumed spleen) and associated small amount of hemoperitoneum. Collection now measures 13.7 x 1.1 x 13.8 cm in comparison to 8.9 x 5.1 x 7.9 cm on recent exam. 2. Changes of pancreatitis with multiple additional pseudocysts in the left upper quadrant. 3. Redemonstration of bilateral lower lobe patchy airspace consolidation. 4. Improving localized ileus in the left upper quadrant. Mario Cha MD Abdomen X-Ray 10/22/16 0000 Signed Impressions: Service Date/Time: Saturday, October 22, 2016 11:55 - CONCLUSION: 1. Mildly distended loops of proximal jejunum in the left upper quadrant consistent with adynamic ileus noted on CT exam. Mario Cha MD Needle Aspiration CT 10/19/16 0000 Signed Impressions: Service Date/Time: Wednesday, October 19, 2016 12:35 - CONCLUSION: Uncomplicated drainage of a large fluid collection in the left upper quadrant. This appeared to predominantly represent old hemorrhage. Binh Jones MD Paracentesis 10/17/16 0000 Signed Impressions: Service Date/Time: Monday, October 17, 2016 14:05 - CONCLUSION: Uncomplicated CT Guided paracentesis revealing hemorrhagic ascites. Fernando Jones MD FACR Abdomen Biopsy CT 10/17/16 0000 Signed Impressions: Service Date/Time: Monday, October 17, 2016 11:32 - CONCLUSION: Uncomplicated CT guided biopsy possible peritoneal metastasis. Fernando Jones MD FACR Chest CT 10/16/16 0000 Signed Impressions: Service Date/Time: October 16:59 - CONCLUSION: 1. Huge complex cystic mass/collection within the left upper quadrant which occupies the expected region of the spleen and is incompletely evaluated on this examination. CT of the abdomen will be performed this same day and will allow complete evaluation of this lesion. 2. Bilbasilar patchiness (left worse than right) consistent with atelectasis and/or pneumonia. Clinical correlation is recommended. 3. Small left pleural effusion. 4. Ascites within the upper abdomen. 5. Degenerative changes throughout the thoracic spine. 6. Coronary artery calcifications. 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 In turn this lead to an outflow infarct of the spleen which eroded into the pseudocyst leading to a large abdominal mass/process. - pt had omental bx 10/17/16 which was non-diagnostic - abdominal aspirate cytology on 10/20/16 --> histiocytes and blood cells, but NO malignancy identified - Repeat CT abd/pelvis (11/03/16) --> Stable left upper quadrant drainage catheter with apparent interval hemorrhage in the left upper quadrant collection (presumed spleen) and associated small amount of hemoperitoneum. Collection now measures 13.7 x 1.1 x 13.8 cm in comparison to 8.9 x 5.1 x 7.9 cm on recent exam. Changes of pancreatitis with multiple additional pseudocysts in the left upper quadrant. Redemonstration of bilateral lower lobe patchy airspace consolidation. Improving localized ileus in the left upper quadrant. - Pt underwent splenic embolization with IR, Dr. 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 CBC (11/07/16) 8.7/26.5 - Pt tolerating diet - Case d/w Dr. Jerome (11/07/16) - repeat CT a/p 11/09 shows stable fluid collection spoke to dr Jerome..he will follow drain with [facility]. d/c today. (2) Wenckebach second degree AV block Status: Acute Plan: - Developed 2nd degree AVB, Wenckebach type 1. - ASX. - 2D Echo nml LVF 10/29 (3) Volume overload Status: Acute Plan: see above (4) LLL pneumonia Status: Acute Plan: see above (5) Ileus Status: Resolved Plan: - resolved - pt received neostigmine while in the ICU - (6) Diarrhea Status: Resolved Plan: see above (7) Alcoholism Status: Chronic Plan: - supportive care - Hugo Howard MD Nov 13, 2016 09:43
--- NOTE | 2016-11-13 09:44 | HHI.DCPOC ---
Discharge Care Plan Diagnosis: (1) Pancreatic pseudocyst (2) Splenic hemorrhage (3) Ileus (4) Wenckebach second degree AV block (5) Volume overload (6) LLL pneumonia Goals to Promote Your Health * To prevent worsening of your condition and complications * To maintain your health at the optimal level Directions to Meet Your Goals Take your medications as prescribed Follow your dietary instruction Follow activity as directed Keep your appointments as scheduled Take your immunizations and boosters as scheduled If your symptoms worsen call your PCP, if no PCP go to Urgent Care Center or Emergency Room Smoking is Dangerous to Your Health. Avoid second hand smoke Call the 24-hour hour crisis hotline for domestic abuse at Hugo Howard MD Nov 13, 2016 09:44
[2016-11-13] MEDS ORDERED: WALKER WHEELS/F1 MIS (10:10)
[2016-11-13] MEDS ORDERED: OXYC-392 PO (10:11)
--- NOTE | 2016-11-16 15:21 | HHI.DS ---
Discharge Summary Admission Date Oct 16, 2016 at 19:18 Discharge Date: Nov 13, 2016 Admitting Diagnosis Abdominal mass, PNA. (1) Pancreatic pseudocyst Diagnosis: Principal (2) Splenic hemorrhage Diagnosis: Principal (3) Mass of abdomen Diagnosis: Principal (4) Wenckebach second degree AV block Diagnosis: Principal (5) Volume overload Diagnosis: Principal (6) LLL pneumonia Diagnosis: Principal (7) Ileus Diagnosis: Principal (8) Diarrhea Diagnosis: Principal (9) Alcoholism Diagnosis: Secondary Brief History Patient is a 56-year-old relatively healthy male presents emergency Department with chest and abdomen pain. Patient states his pain is Fairly severe recently , but has been ongoing for 1 week. States is also been having some nausea without vomiting. Denies any weight loss. Does endorse smoking on a regular basis. He previously drank Etoh heavily, but very little in last 6 mos. Patient did adamantly denies any trauma to the left side of his abdomen, being in MVA or MCA recently. Patient does endorse some fevers over last week. States the pain is fairly generalized nonradiating, does endorse some mild shortness of breath. No hemoptysis. No melena or hematochezia. No urinary symptoms. has been eating his normal diet. No foreign travel. Hospital Course (1) Mass of abdomen - Pt is 56 yo with pmh of etoh abuse/pancreatitis - Pt admitted with c/o with left abdomen pain/fullness subsequently required intubation. - CT abd/pelvis (10/21/16) --> LUQ perisplenic fluid collection, measuring smaller following drainage with IR - Abdominal asipration of 1.5 Liters on (10/19/16) - Pt felt to have had a large pancreatic pseudocyst which likely compressed the pt's splenic vein. In turn this lead to an outflow infarct of the spleen which eroded into the pseudocyst leading to a large abdominal mass/process. - pt had omental bx 10/17/16 which was non-diagnostic - abdominal aspirate cytology on 10/20/16 --> histiocytes and blood cells, but NO malignancy identified - Repeat CT abd/pelvis (11/03/16) --> Stable left upper quadrant drainage catheter with apparent interval hemorrhage in the left upper quadrant collection (presumed spleen) and associated small amount of hemoperitoneum. Collection now measures 13.7 x 1.1 x 13.8 cm in comparison to 8.9 x 5.1 x 7.9 cm on recent exam. Changes of pancreatitis with multiple additional pseudocysts in the left upper quadrant. Redemonstration of bilateral lower lobe patchy airspace consolidation. Improving localized ileus in the left upper quadrant. - Pt underwent splenic embolization with IR, Dr. Cha with embolization of Large pseudoaneurysm arising from a distal splenic artery branch - Hg 7.7 (11/04/16), pt was transfused with 2 units PRBCs on 11/04 with improvement in his H/H - Pt tolerating diet - Case d/w Dr. Jerome - repeat CT a/p 11/09 shows stable fluid collection -Spoke to dr Jerome..he will follow drain with [facility] [place]. d/c today. (2) Wenckebach second degree AV block Status: Acute - Developed 2nd degree AVB, Wenckebach type 1. - ASX. - 2D Echo nml LVF 10/29 -seen by cardiology and stable (3) Volume overload Plan: see above (4) LLL pneumonia Status: Acute Plan: see above (5) Ileus Status: Resolved (6) Diarrhea Status: Resolved (7) Alcoholism Status: Chronic - Pt Condition on Discharge: Stable Discharge Disposition: Disch w/ Home Health Serv Discharge Instructions DIET: Follow Instructions for: As Tolerated, No Restrictions Speech Therapy-Diet Recommends: Regular Activities you can perform: Regular-No Restrictions Follow up Referrals: Surgical - 1 Week with Lucas Jerome MD New Medications: Walker with Front Wheels (Walker with Front Wheels) 1 Mis Mis 1 EA .ROUTE DIRECTED #1 Ref 0 EA Oxycodone (Oxycodone) 5 Mg Tab 5 MG PO Q6HR PRN pain #30 TAB Hugo Howard MD Nov 16, 2016 15:21
== END 2016-11-13 11:40 | disposition home health service (06) | DRG 981 ==
LOC: NEPC 12:58 → NEDA 19:18 → NEDH 22:08 → N03A 10-17 00:22 → HOCA 10-24 10:25 → N03B 11-03 18:43 → HOCA 11-06 20:52
PROVIDERS: ADMIT Hospitalist; ATTEND Hospitalist
PROC: 0W9G3ZX Drainage of Peritoneal Cavity, Percutaneous Approach, Diagnostic (ICD-10-PCS; principal; 2016-10-17)
PROC: 0DBW3ZX Excision of Peritoneum, Percutaneous Approach, Diagnostic (ICD-10-PCS; 2016-10-17)
PROC: 0BH17EZ Insertion of Endotracheal Airway into Trachea, Via Natural or Artificial Opening (ICD-10-PCS; 2016-10-18)
PROC: 5A1945Z Respiratory Ventilation, 24-96 Consecutive Hours (ICD-10-PCS; 2016-10-18)
PROC: 0T9B70Z Drainage of Bladder with Drainage Device, Via Natural or Artificial Opening (ICD-10-PCS; 2016-10-22)
PROC: 04V43DZ Restriction of Splenic Artery with Intraluminal Device, Percutaneous Approach (ICD-10-PCS; 2016-11-03)
PROC: 30233N1 Transfusion of Nonautologous Red Blood Cells into Peripheral Vein, Percutaneous Approach (ICD-10-PCS; 2016-11-03)
DX: D73.5 Infarction of spleen (principal); J69.0 Pneumonitis due to inhalation of food and vomit; J96.01 Acute respiratory failure with hypoxia; K66.1 Hemoperitoneum; R18.8 Other ascites; J90 Pleural effusion, not elsewhere classified; I44.1 Atrioventricular block, second degree; K85.90 Acute pancreatitis without necrosis or infection, unspecified; K86.3 Pseudocyst of pancreas; D62 Acute posthemorrhagic anemia; N17.9 Acute kidney failure, unspecified; K56.7 Ileus, unspecified; J98.11 Atelectasis; D73.4 Cyst of spleen; E87.70 Fluid overload, unspecified; F17.210 Nicotine dependence, cigarettes, uncomplicated; J45.909 Unspecified asthma, uncomplicated; K52.9 Noninfective gastroenteritis and colitis, unspecified; I72.8 Aneurysm of other specified arteries; R73.9 Hyperglycemia, unspecified; F10.20 Alcohol dependence, uncomplicated; K64.9 Unspecified hemorrhoids
CPT/HCPCS: 31500; 36247; 36430; 36556; 36600; 37242; 49083; 49180; 71010; 71020; 71260; 74000; 74174; 74176; 74177; 75726; 75774; 76937; 77001; 77012; 80048; 80053; 80076; 81001; 82150; 82272; 82550; 82805; 82945; 82948; 83615; 83690; 83735; 83880; 84100; 84132; 84155; 84157; 84484; 85007; 85014; 85018; 85025; 85027; 85610; 85730; 86301; 86850; 86900; 86901; 86920; 87015; 87040; 87070; 87086; 87102; 87205; 87206; 87493; 87641; 88172; 89051; 93005; 93306; 94002; 94003; 94150; 94640; 94664; 94667; 94668; 96374; 96375; 99152; 99153; C1729; C1769; C1887; C9113; J0456; J0461; J0696; J1170; J1200; J1644; J1650; J1940; J2250; J2270; J2405; J2543; J2710; J2765; J2920; J3010; J3480; J7030; J7050; P9016; Q9963; Q9967